=== PATIENT | male | born 1945 | race Caucasian/White ===

== ENCOUNTER 2016-05-02 08:53 | Outpatient (CLI) | payer MEDICARE | END 2016-05-02 08:54 | disposition home or self-care (01) | DX: I12.9 Hypertensive chronic kidney disease with stage 1 through stage 4 chronic kidney disease, or unspecified chronic kidney disease (principal); N18.3 Chronic kidney disease, stage 3 (moderate); Z12.5 Encounter for screening for malignant neoplasm of prostate | CPT/HCPCS: 36415; 80053; 85025; G0103 ==

== ENCOUNTER 2016-11-11 07:53 | Outpatient (CLI) | payer MEDICARE ==
[2016-11-11 13:12] LABS: BASOPHILS % (AUTO) 0.7 %; EOSINOPHILS # (AUTO) 0.2 10^3/uL (0.0-0.7); EOSINOPHILS % (AUTO) 3.3 %; HCT - HEMATOCRIT 39.1 % (42.0-52.0); HGB - HEMOGLOBIN 13.4 g/dL (14.0-18.0); LYMPHOCYTES % (AUTO) 34.5 %; MEAN CORPUSCULAR HEMOGLOBIN 29.7 pg (27.0-31.0); MEAN CORPUSCULAR HGB CONC 34.2 g/dL (32.0-36.0); MEAN CORPUSCULAR VOLUME 86.7 fL (80.0-94.0); MEAN PLATELET VOLUME 8.5 fL (7.4-11.4); MONOCYTES # (AUTO) 0.5 10^3/uL (0.0-1.0); MONOCYTES % (AUTO) 9.3 %; NEUTROPHILS # (AUTO) 3.1 10^3/uL (1.5-6.6); NEUTROPHILS % (AUTO) 52.2 %; RED BLOOD COUNT 4.51 10^6/uL (4.70-6.10); RED CELL DISTRIBUTION WIDTH 13.6 % (12.0-15.0); UNCORRECTED WHITE BLOOD COUNT 5.9 x10^3/uL; WHITE BLOOD COUNT 5.9 x10^3/uL (4.8-10.8)
[2016-11-11 13:24] LABS: ALBUMIN/GLOBULIN RATIO 1.4 (1.0-2.2); BILIRUBIN,TOTAL 1.1 mg/dL (0.2-1.0); CALCIUM 9.5 mg/dL (8.5-10.3); CREATININE 1.3 mg/dL (0.6-1.2); POTASSIUM 4.2 mmol/L (3.5-5.0); TOTAL PROTEIN 7.6 g/dL (6.7-8.2)
== END 2016-11-11 07:54 | disposition home or self-care (01) ==
LOC: LAB.WCP 07:53
PROVIDERS: ATTEND Family Medicine
DX: I10 Essential (primary) hypertension (principal)
CPT/HCPCS: 36415; 80053; 85025; G0103; 84153

== ENCOUNTER 2017-06-15 08:00 | Outpatient (CLI) | payer MEDICARE ==
[2017-06-15 19:18] LABS: CALCIUM 9.3 mg/dL (8.5-10.3); CREATININE 1.3 mg/dL (0.6-1.2)
== END 2017-06-15 08:01 | disposition home or self-care (01) ==
LOC: LAB.WCP 08:00
PROVIDERS: ATTEND Family Medicine
DX: R60.0 Localized edema (principal)
CPT/HCPCS: 36415; 80048

== ENCOUNTER 2017-06-16 09:37 | Outpatient (CLI) | payer MEDICARE ==
--- NOTE | 2017-06-16 12:01 | Ultrasound Report ---
BILATERAL LOWER EXTREMITY VENOUS DUPLEX: 06/16/2017 CLINICAL INDICATION: Right leg edema. TECHNIQUE: Real-time sonographic vascular imaging was performed by the penciller through the lower extremities utilizing both color flow and Doppler spectral analysis. Multiple territory account representative static images were saved for review. FINDINGS: A bilateral lower extremity venous sonogram is performed revealing the common femoral, superficial femoral, profunda femoris, and popliteal veins to be adequately visualized without intraluminal defects. There is normal venous compression, augmentation, phasicity, and spontaneity of venous flow. In the calf, the visualized more cephalad portions of posterior tibial and peroneal veins are grossly compressible, without filling defects. IMPRESSION: NO EVIDENCE OF DEEP VENOUS THROMBOSIS. TD: 06/16/2017 12:00
== END 2017-06-16 09:38 | disposition home or self-care (01) ==
LOC: DI 09:37
PROVIDERS: ATTEND Family Medicine
DX: R60.0 Localized edema (principal)
CPT/HCPCS: 93970

== ENCOUNTER 2017-07-12 09:49 | Outpatient (CLI) | payer MEDICARE | END 2017-07-12 09:50 | disposition home or self-care (01) | LOC: SC 09:49 | PROVIDERS: ATTEND Nurse Practitioner Family | DX: G47.33 Obstructive sleep apnea (adult) (pediatric) (principal); G47.61 Periodic limb movement disorder | CPT/HCPCS: 99214; G0463; 99212 ==

== ENCOUNTER 2017-10-02 08:00 | Outpatient (CLI) | payer MEDICARE ==
[2017-10-02 19:41] LABS: ALBUMIN 4.2 g/dL (3.2-5.5); ALBUMIN/GLOBULIN RATIO 1.2 (1.0-2.2); ALKALINE PHOSPHATASE 56 IU/L (42-121); ALT ALANINE AMINOTRANSFERASE 25 IU/L (10-60); AST ASPARTATE AMINOTRANSFERASE 24 IU/L (10-42); BILIRUBIN,TOTAL 1.4 mg/dL (0.2-1.0); BUN - BLOOD UREA NITROGEN 28 mg/dL (6-20); CALCIUM 9.4 mg/dL (8.5-10.3); CARBON DIOXIDE - CO2 24 mmol/L (21-32); CHLORIDE 104 mmol/L (101-111); CHOL/HDL RATIO 2.2 (<5.0); CHOLESTEROL 127 mg/dL; CREATININE 1.2 mg/dL (0.6-1.2); GFR - MDRD 60 (>89); GLUCOSE 80 mg/dL (70-100); HDL CHOLESTEROL 57 mg/dL; LDL CHOLESTEROL,CALCULATED 61 mg/dL; LDL/HDL RATIO 1.1 (<3.6); SODIUM 137 mmol/L (135-145); TOTAL PROTEIN 7.6 g/dL (6.7-8.2); VLDL CHOLESTEROL 9 mg/dL
== END 2017-10-02 08:01 | disposition home or self-care (01) ==
LOC: LAB.WCP 08:00
PROVIDERS: ATTEND Family Medicine
DX: N40.1 Benign prostatic hyperplasia with lower urinary tract symptoms (principal); I10 Essential (primary) hypertension; G47.33 Obstructive sleep apnea (adult) (pediatric); Z12.5 Encounter for screening for malignant neoplasm of prostate
CPT/HCPCS: 36415; 80053; 80061; G0103; 83721; 84153

== ENCOUNTER 2017-10-05 22:01 | Outpatient (CLI) | payer MEDICARE | END 2017-10-05 22:02 | disposition critical access hospital (66) | LOC: EMS 22:01 | PROVIDERS: ATTEND Surgery | DX: R06.02 Shortness of breath (principal) | CPT/HCPCS: A0425; A0429 ==

== ENCOUNTER 2017-10-05 22:36 | Emergency (ER) | payer MEDICARE ==
--- NOTE | 2017-10-05 22:56 | ED Physician Documentation ---
PD HPI DYSPNEA - Stated complaint Stated Complaint: SOA - Chief complaint Chief Complaint: Resp - History obtained from History obtained from: Patient - History of Present Illness Timing - onset: How many days ago (2-3) Timing - duration: Days Timing - details: Gradual onset Pain level now: 0 Improved by: Rest Worsened by: Exertion, Coughing Associated symptoms: Cough. No: Fever, Chest pain / discomfort, Bilateral edema , Unilateral edema Similar symptoms before: Has not had sx before Recently seen: Not recently seen - Additional information Additional information: patient complains of 2 to 3 days of upper respiratory infection symptoms. He feels chest congestion associated with a productive cough, sore throat. Tonight , he was gargling with salt water for his sore throat, when he had sudden onset of sensation of choking and being unable to breathe. Family called 911, but the symptom of choking and being unable to breathe rapidly resolved within less than one minute. Review of Systems Constitutional: reports: Myalgias. denies: Fever Ears: denies: Ear pain Nose: reports: Congestion Throat: reports: Sore throat Cardiac: denies: Chest pain / pressure, Palpitations, Pedal edema Respiratory: reports: Dyspnea, Cough GI: reports: Reviewed and negative PD PAST MEDICAL HISTORY - Past Medical History Past Medical History: No - Past Surgical History Past Surgical History: No - Present Medications Home Medications: Ambulatory Orders Medication Instructions Recorded Confirmed Azithromycin [Zithromax] 250 mg PO DAILY #4 tablet 10/06/17 - Allergies Allergies/Adverse Reactions: Allergies Allergy/AdvReac Type Severity Reaction Status Date / Time No Known Drug Allergies Allergy Verified 10/05/17 23:30 - Living Situation Living Situation: reports: With spouse/s.o. Living Arrangement: reports: At home - Social History Does the pt smoke?: No PD ED PE NORMAL - Vitals Vital signs reviewed: Yes - General General: Alert and oriented X 3, No acute distress, Well developed/nourished - HEENT HEENT: Moist mucous membranes, Pharynx benign - Neck Neck: Supple, no meningeal sign - Cardiac Cardiac: RRR, No murmur - Respiratory Respiratory: No respiratory distress, Other (scattered rhonchi without focal abnormality) Results - Vitals Vitals: Oxygen O2 Source Room air - EKG (time done) No standard instances Rate: Rate (enter#) (71) Rhythm: NSR Cullen: Normal Intervals: Normal MT QRS: Normal Ischemia: Non specific changes (V1-V3) - Labs Labs: Laboratory Tests 10/05/17 10/05/17 23:55 23:55 WBC 5.5 RBC 4.08 L Hgb 12.3 L Hct 36.7 L MCV 89.9 MCH 30.1 MCHC 33.5 RDW 13.8 Plt Count 205 MPV 7.8 Neut # (Auto) 3.7 Lymph # (Auto) 1.0 L Grady # (Auto) 0.5 Eos # (Auto) 0.2 Baso # (Auto) 0.1 Absolute Nucleated RBC 0.00 Nucleated RBC % 0.0 Troponin I < 0.04 PD MEDICAL DECISION MAKING - ED course Complexity details: reviewed results, re-evaluated patient, considered differential, d/w patient ED course: based on patients HPI, abnormal breath sounds, and concerning description of sudden onset of difficulty breathing tonight, my recommendation is to start Zithromax for possible early pneumonia, and this would obviate the need for a chest x-ray.patient is agreeable with this plan. Patient was brought in by ambulance, and the 12 lead EKG performed the field has mildly suspicious ST segments in the early V leads and thus EKG performed in emergency department. This EKG also has ST segments that could be interpreted as elevated, although there is no clear J-point to measure. When also considering that he has no chest pain, pressure, tightness, squeezing, and that his symptoms are limited to symptoms that are quite suggestive of a respiratory infection, my recommendation was to then obtain blood tests including troponin to further investigate these possible EKG abnormalities. These tests results were reassuring, and on reexam, patient says he still has had no chest discomfort, no palpitations, and wishes to be discharged home. - Sepsis Event Vital Signs: Oxygen O2 Source Room air Departure - Departure Disposition: Home, Self Care Clinical Impression: Dyspnea Condition: Good Instructions: ED Upper Resp Infec Abx Tx, ED Dyspnea Shortness of Breath Follow-Up: Eduardo Deleon MD [Primary Care Provider] - Prescriptions: Azithromycin [Zithromax] 250 mg PO DAILY #4 tablet Discharge Date/Time: 10/06/17 00:50
[2017-10-05] MEDS ORDERED: AZITHROMYCIN 250 MG TABLET PO STA (23:19)
[2017-10-06] MEDS ORDERED: AZITHROMYCIN 250 MG TABLET PO ONE (00:05)
[2017-10-06 00:17] LABS: BASOPHILS # (AUTO) 0.1 10^3/uL (0.0-0.1); BASOPHILS % (AUTO) 1.4 %; EOSINOPHILS # (AUTO) 0.2 10^3/uL (0.0-0.7); EOSINOPHILS % (AUTO) 3.6 %; HGB - HEMOGLOBIN 12.3 g/dL (14.0-18.0); LYMPHOCYTES % (AUTO) 18.2 %; MEAN CORPUSCULAR HEMOGLOBIN 30.1 pg (27.0-31.0); MEAN CORPUSCULAR HGB CONC 33.5 g/dL (32.0-36.0); MEAN CORPUSCULAR VOLUME 89.9 fL (80.0-94.0); MEAN PLATELET VOLUME 7.8 fL (7.4-11.4); MONOCYTES # (AUTO) 0.5 10^3/uL (0.0-1.0); MONOCYTES % (AUTO) 9.3 %; NEUTROPHILS # (AUTO) 3.7 10^3/uL (1.5-6.6); NEUTROPHILS % (AUTO) 67.5 %; PLT - PLATELET COUNT 205 10^3/uL (130-450); RED BLOOD COUNT 4.08 10^6/uL (4.70-6.10); RED CELL DISTRIBUTION WIDTH 13.8 % (12.0-15.0); WHITE BLOOD COUNT 5.5 x10^3/uL (4.8-10.8)
[2017-10-06 00:50] VITALS: BP 140/80
== END 2017-10-06 00:50 | disposition home or self-care (01) ==
LOC: EDUNIT# → ED 22:36
DX: R06.02 Shortness of breath (principal); R05 Cough; J02.9 Acute pharyngitis, unspecified
CPT/HCPCS: 36415; 84484; 85025; 93005; 99283; A9270

== ENCOUNTER 2017-11-09 09:06 | Outpatient (CLI) | payer MEDICARE ==
--- NOTE | 2017-11-09 16:14 | MRI Report ---
Procedure Date: 11/09/2017 Accession Number: [id number] / [id number] Procedure: MRI - Foot RT W/O CPT Code: FULL RESULT: EXAM: RIGHT MIDFOOT MRI WITHOUT CONTRAST EXAM DATE: 11/09/2017 10:30 AM. CLINICAL HISTORY: Bilateral foot pain. Peroneal tendinitis. COMPARISON: None. TECHNIQUE: Multiplanar, multisequence T1-weighted and fluid-sensitive sequences of the midfoot without contrast. Other: None. FINDINGS: Bones: No fractures. There is periarticular marrow edema and cyst formation in the first tarsometatarsal joint. The first tarsometatarsal joint is moderately narrowed with dorsal moderate osteophyte formation. Articular Cartilage: The patient has full-thickness fissuring in the articular cartilage in the first tarsometatarsal joint near the areas of periarticular marrow edema. Ligaments: The visualized intertarsal, intermetatarsal, and tarsometatarsal ligaments are intact. This includes the Lisfranc ligament. The visualized collateral ligaments are intact. Tendons: The peroneus longus tendon has an oval-shaped area within its midfibers as it starts to travel around the midfoot that is 10 mm in length. This could represent a large intrasubstance tear or an os peroneum within the tendon. There is certainly some fluid around the tendon in this region and if this is an ossicle, it is edematous. (series 901, image 7). The insertion of the peroneus brevis tendon is unremarkable. The other visualized flexor and extensor tendons are unremarkable. Musculature: The intrinsic musculature of the foot demonstrates moderate atrophy with mild edema. Other: No effusions. The visualized portion of the tarsal tunnel is unremarkable. No intermetatarsal bursitis. Subcutaneous edema is in the lateral portion of the foot. IMPRESSION: 1. 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 2. Oval-shaped area of increased T2 signal within the peroneus longus tendon near the marker indicating the site of the pain with some fluid around the tendon. This could represent an intrasubstance tear or could represent an os peroneum syndrome. Radiographic correlation may determine whether there is an ossicle at that location. [facility] MUSCULOSKELETAL RADIOLOGY SECTION
--- NOTE | 2017-11-09 18:12 | MRI Report ---
Procedure Date: 11/09/2017 Accession Number: [id number] / [id number] Procedure: MRI - Foot LT W/O CPT Code: FULL RESULT: EXAM: LEFT MIDFOOT MRI WITHOUT CONTRAST EXAM DATE: 11/09/2017 11:05 AM. CLINICAL HISTORY: Peroneal tendinitis, bilateral foot pain, unspecified. COMPARISON: None. TECHNIQUE: Multiplanar, multisequence T1-weighted and fluid-sensitive sequences of the midfoot without contrast. Other: None. FINDINGS: Evaluation limited in the absence of routine short axis sequences. Bones: No fracture or bone lesion. Mild to moderate bone marrow edema partially visualized at the peroneal tubercle at the lateral margin of the calcaneus. Articular Cartilage: Minimal cartilage loss throughout the midfoot. No focal bone marrow edema or cystic changes. Mild degenerative change partially visualized at the first metatarsal phalangeal joint. Ligaments: Evaluation limited in the absence of short axis sequences. The visualized intertarsal, intermetatarsal, and tarsometatarsal ligaments are grossly intact. This includes the Lisfranc ligament. Tendons: Evaluation limited in the absence of short axis sequences. No gross tendon disruption visualized. Mild thickening of the peroneus longus and brevis tendons at the level of the calcaneus. Lobulated focus of fluid measuring 3 cm in length partially visualized at the master knot of Harvey at the crossover site of the flexor hallucis longus and flexor digitorum tendons. Musculature: Moderate to severe fatty atrophy and subtle edema throughout the musculature, likely neurogenic. Other: No large joint effusion. Minimal subcutaneous edema over the medial aspect of the midfoot. Linear 3.2 cm multilobulated ganglion partially visualized over the dorsal and medial aspect talonavicular joint. 1.2 cm ganglion at the plantar aspect calcaneal cuboid joint. IMPRESSION: 1. Evaluation mildly limited in the absence of short axis sequences. 2. Mild peroneus longus and brevis tendinopathy partially visualized at the level of the calcaneus. 3. Mild to moderate bone marrow edema in the calcaneus at the level of the peroneal tubercle, likely reactive. 4. Mild degenerative change first metatarsal phalangeal joint. [facility] MUSCULOSKELETAL RADIOLOGY SECTION
== END 2017-11-09 09:07 | disposition home or self-care (01) ==
LOC: DI 09:06
PROVIDERS: ATTEND Orthopaedic Surgery
DX: M19.071 Primary osteoarthritis, right ankle and foot (principal); M77.52 Other enthesopathy of left foot and ankle; M19.072 Primary osteoarthritis, left ankle and foot

== ENCOUNTER 2018-04-25 08:00 | Outpatient (CLI) | payer MEDICARE ==
[2018-04-25 19:14] LABS: ALBUMIN 4.6 g/dL (3.2-5.5); ALBUMIN/GLOBULIN RATIO 1.6 (1.0-2.2); BILIRUBIN,TOTAL 1.3 mg/dL (0.2-1.0); CALCIUM 9.3 mg/dL (8.5-10.3); CREATININE 1.2 mg/dL (0.6-1.2); TOTAL PROTEIN 7.5 g/dL (6.7-8.2)
== END 2018-04-25 23:59 | disposition home or self-care (01) ==
LOC: LAB.WCP 08:00
PROVIDERS: ATTEND Family Medicine
DX: I12.9 Hypertensive chronic kidney disease with stage 1 through stage 4 chronic kidney disease, or unspecified chronic kidney disease (principal); N18.3 Chronic kidney disease, stage 3 (moderate)
CPT/HCPCS: 36415; 80053

== ENCOUNTER 2018-05-23 09:17 | Outpatient (CLI) | payer MEDICARE ==
[2018-05-23 12:48] LABS: CALCIUM 9.5 mg/dL (8.5-10.3); CREATININE 1.2 mg/dL (0.6-1.2)
== END 2018-05-23 09:18 | disposition home or self-care (01) ==
LOC: LAB.WCP 09:17
PROVIDERS: ATTEND Family Medicine
DX: I12.9 Hypertensive chronic kidney disease with stage 1 through stage 4 chronic kidney disease, or unspecified chronic kidney disease (principal); N18.3 Chronic kidney disease, stage 3 (moderate)
CPT/HCPCS: 36415; 80048

== ENCOUNTER 2018-11-19 | Outpatient (CLI) | payer MEDICARE | END 2018-11-19 23:59 | disposition home or self-care (01) ==

== ENCOUNTER 2018-11-27 08:00 | Outpatient (CLI) | payer MEDICARE ==
[2018-11-27 19:25] LABS: BILIRUBIN,URINE NEGATIVE (NEGATIVE); GLUCOSE, URINE (UA) NEGATIVE (NEGATIVE); KETONES,URINE (UA) NEGATIVE (NEGATIVE); LEUKOCYTE ESTERASE, URINE NEGATIVE (NEGATIVE); NITRITE,URINE NEGATIVE (NEGATIVE); OCCULT BLOOD,URINE NEGATIVE (NEGATIVE); PROTEIN,URINE NEGATIVE (NEGATIVE); UROBILINOGEN,URINE 0.2 (NORMAL) E.U./dL (NORMAL)
[2018-11-27 19:29] LABS: CLARITY,URINE CLEAR (CLEAR)
[2018-11-27 19:34] LABS: BACTERIA,URINE None Seen /HPF (None Seen); RBC,URINE None Seen /HPF (0-5); SQUAMOUS EPITHELIAL CELL,UR NONE SEEN (<= Few)
== END 2018-11-27 23:59 | disposition home or self-care (01) ==
LOC: LAB.WCP 08:00
PROVIDERS: ATTEND Family Medicine
DX: R10.9 Unspecified abdominal pain (principal)
CPT/HCPCS: 81001

== ENCOUNTER 2018-12-03 11:00 | Outpatient (CLI) | payer MEDICARE ==
[2018-12-03] MEDS ORDERED: IOVERSOL 320 100 ML VIAL IVP ONE ×2 (11:12→16:51)
[2018-12-03] MEDS ORDERED: IOVERSOL 320 50 ML VIAL ONE (11:13)
[2018-12-03] MEDS ORDERED: IOVERSOL 320 50 ML VIAL PO ONE (16:51)
--- NOTE | 2018-12-04 11:46 | CT Report ---
Reason: ABDOMINAL PAIN, LEFT LOWER QUADRANT Procedure Date: 12/03/2018 Accession Number: [id number] / [id number] Procedure: CT - Abdomen/Pelvis W CPT Code: FULL RESULT: EXAM: CT ABDOMEN AND PELVIS EXAM DATE: 12/03/2018 12:12 PM. CLINICAL HISTORY: Abdominal pain, left lower quadrant. COMPARISONS: None. TECHNIQUE: Routine helical CT imaging was performed through the abdomen and pelvis. IV contrast: OPTI 320 100 mL. Enteric contrast: Yes. Reconstructions: Coronal and sagittal. In accordance with CT protocol optimization, one or more of the following dose reduction techniques were utilized for this exam: automated exposure control, adjustment of mA and/or KV based on patient size, or use of iterative reconstructive technique. FINDINGS: Lung Bases: Unremarkable. Liver: Normal. No masses. Gallbladder/Bile Ducts: Unremarkable. Spleen: Normal. Pancreas: Normal. Adrenal Glands: Normal. Kidneys: Right kidney is normal. On the left kidney, there is a 3 cm circumscribed margin exophytic oval mass from the lateral lower pole with mean Hounsfield units of 66 and an appearance of imperceptible outer wall favoring hyperdense cyst. An identical morphology finding measuring 80 HU is noted off the posterior lower pole. There is no stone or hydronephrosis of either side. Peritoneal Cavity/Bowel: Air and fluid-filled diverticulum of the third portion of duodenum. Moderate diffuse colonic diverticulosis greatest of the sigmoid colon without evidence of acute diverticulitis. The appendix is not specifically visualized but there is no inflammatory change in the right lower quadrant. No free fluid, free air or adenopathy. No masses or acute inflammatory process. Pelvic Organs: Normal. The bladder and visualized pelvic organs are within normal limits. Vasculature: No aneurysms or other significant abnormality. Bones: Multilevel degenerative disk changes of the lumbar spine. Multilevel bridging osteophyte noted of the lower thoracic spine. Mild symmetric degenerative arthritis of both hip joints. Other: There is elongated low-density fluid expansion of the lower left psoas muscle extending nearly to its insertion point involving roughly 9 cm length of the distal psoas muscle and measuring roughly 3 x 2.5 cm in dimension. Hounsfield unit measurements are less than 20. There is no associated enhancement. IMPRESSION: 1. Low density central fluid expansion involving distal left psoas muscle extending nearly to the insertion point as possible etiology for left-sided symptoms. Differential considerations could include seroma fluid related to injury less likely infectious fluid given the lack of other findings. Correlation with clinical history is recommended. 2. Indeterminate exophytic circumscribed mass-like findings of the left kidney, most likely representing hyperdense cysts. Further evaluation with a renal ultrasound and/or dedicated pre-and postcontrast abdominal CT is recommended. 3. Colonic diverticulosis without CT evidence of diverticulitis. [facility]
== END 2018-12-03 11:01 | disposition home or self-care (01) ==
LOC: DI 11:00
PROVIDERS: ATTEND Family Medicine
DX: R10.32 Left lower quadrant pain (principal); N28.89 Other specified disorders of kidney and ureter; K57.30 Diverticulosis of large intestine without perforation or abscess without bleeding
CPT/HCPCS: 74177; Q9967

== ENCOUNTER 2018-12-19 16:18 | Outpatient (CLI) | payer MEDICARE ==
--- NOTE | 2018-12-24 03:40 | Ultrasound Report ---
Reason: RENAL MASS Procedure Date: 12/19/2018 Accession Number: [id number] / [id number] Procedure: US - Retroperitoneal CPT Code: FULL RESULT: EXAM: RENAL ULTRASOUND EXAM DATE: 12/19/2018 06:22 PM. CLINICAL HISTORY: RENAL MASS. COMPARISON: ABDOMEN/PELVIS W/ 12/03/2018 12:04 PM. TECHNIQUE: Real-time scanning was performed with static images obtained. FINDINGS: Right Kidney: 13.3 x 6.3 x 5.1 cm. Normal echotexture with no stones, contour-deforming masses, or hydronephrosis. Left Kidney: 12.1 x 5.7 x 4.8 cm. 2 cortical cysts are identified, the larger measuring 3 cm, and the smaller measuring 1.1 cm, correlating with the [address] No solid mass is identified. Bladder: Bilateral jets seen. The prevoid bladder volume was 585 cc. The postvoid bladder volume was 366 cc. Other: None. IMPRESSION: 2 cortical cysts, accounting for the CT abnormalities. No solid renal mass is appreciated. Large postvoid residual. [facility]
== END 2018-12-19 16:19 | disposition home or self-care (01) ==
LOC: DI 16:18
PROVIDERS: ATTEND Family Medicine
DX: Q61.02 Congenital multiple renal cysts (principal)
CPT/HCPCS: 76770

== ENCOUNTER 2019-02-05 10:51 | Outpatient (CLI) | payer MEDICARE ==
[2019-02-05] MEDS ORDERED: IOVERSOL 320 100 ML VIAL IVP ONE ×2 (11:08→13:36)
[2019-02-05] MEDS ORDERED: IOVERSOL 320 50 ML VIAL ONE (11:08)
[2019-02-05 11:27] LABS: CREATININE 1.4 mg/dL (0.6-1.2)
[2019-02-05] MEDS ORDERED: IOVERSOL 320 50 ML VIAL PO ONE (13:36)
--- NOTE | 2019-02-06 10:31 | CT Report ---
Reason: L PSOAS FLUID COLLECTION Procedure Date: 02/05/2019 Accession Number: [id number] / [id number] Procedure: CT - Abdomen/Pelvis W CPT Code: FULL RESULT: EXAM: CT ABDOMEN AND PELVIS EXAM DATE: 02/05/2019 12:12 PM. CLINICAL HISTORY: Follow-up left iliopsoas fluid collection COMPARISONS: ABDOMEN/PELVIS W/ 12/03/2018 12:04 PM LUMBAR SPINE W/WO 11/18/2015 8:35 AM RETROPERITONEAL 12/19/2018 5:26 PM. TECHNIQUE: Routine helical CT imaging was performed through the abdomen and pelvis. IV contrast: OPTI 320 90ML. Enteric contrast: Yes. Reconstructions: Coronal and sagittal. In accordance with CT protocol optimization, one or more of the following dose reduction techniques were utilized for this exam: automated exposure control, adjustment of mA and/or KV based on patient size, or use of iterative reconstructive technique. FINDINGS: Lung Bases: Unremarkable. Liver: Normal. No masses. Gallbladder/Bile Ducts: Unremarkable. Spleen: Normal. Pancreas: Normal. Adrenal Glands: Normal. Kidneys: 3 cm circumscribed exophytic lateral lower pole and 9 mm exophytic posterior inferior left lower pole high attenuation lesions are stable. 5 mm posterior right kidney exophytic lesion too small to accurately characterize also stable. No stones, new masses or hydronephrosis. Peritoneal Cavity/Bowel: No free fluid, free air or adenopathy. Air and fluid filled duodenal diverticulum as before. No masses or acute inflammatory process. Colonic diverticulosis without diverticulitis. Pelvic Organs: Unremarkable bladder. Prominent prostate. Vasculature: No aneurysms or other significant abnormality. Bones: Multilevel moderate degenerative change in spine and mild degenerative change of the hips again noted. Minor lumbar levoscoliosis. Other: Elongated low density fluid collection within the left lower iliopsoas muscle measuring 9 cm longitudinally by 3 x 2.5 cm axial unchanged. Differential again includes synovial/ganglion cyst, posttraumatic seroma/hematoma, with infection seeming less likely. IMPRESSION: Stable abdomen and pelvis CT compared with 12/03/2018 with particular reference to a distal left iliopsoas fluid collection, exophytic lesions from both kidneys, and prostate prominence.No significant new findings. [facility]
== END 2019-02-05 10:52 | disposition home or self-care (01) ==
LOC: DI 10:51
PROVIDERS: ATTEND Surgery
DX: K68.12 Psoas muscle abscess (principal)
CPT/HCPCS: 36415; 74177; 82565; Q9967

== ENCOUNTER 2019-03-20 14:38 | Outpatient (CLI) | payer MEDICARE ==
[2019-03-20 15:35] VITALS: BP 140/60
--- NOTE | 2019-03-20 15:35 | SLEEP CARE CONSULTATION ---
Information from patient questionnaire entered by Carina Werner. I have reviewed and concur with the information entered by Carina Werner. This document represents the service I personally performed and the decisions made by me, Krystle Maria, RN, MSN, ORDER ANALYST. History of Present Illness Previous diagnosis: Severe, Obstructive Sleep Apnea-Hypopnea Syndrome AHI: 30.8 Reason for follow up: annual (last seen 2018) Equipment type: CPAP Equipment obtained from: [facility] (was having difficulty getting supplies and unable to use CPAP for a short time while waiting for supplies) Mask style: Nasal Mask brand: Respironics Backup mask available: No (Keep current mask when replaced as spare ) Last cushion change: months ago CPAP Compliance Data - Data Reviewed with Patient Average duration of nightly device use: 7.7 Compliance rate %: 93.3 (30 days) Current pressure setting (cmH2O): 4 Humidity settin Heated hose settin Average residual AHI: 1.3 Average large leak: 1 min 28 sec Subjective Patient concerns: reports: dry mouth, nose, throat (most nights until that past week it is less. The reservoir shows minimal use of water despite highest setting. He does not have to replace water only weekly ). denies: aerophagia, mask discomfort, air blowing in eyes, mask leak noise, condensation in mask/hose, nasal congestion, epistaxis Observed to snore while using device: No Current pressure setting perceived as: comfortable On therapy, patient: reports: sleeping better, awakening more refreshed, being more awake and alert during the day, more rested overall. denies: drowsiness while driving Initial [place] Sleepiness Scale score: 17 Current [place] Sleepiness Scale score: 9 Allergies and Home Medications Known drug allergies: No Home medication list reviewed: Yes Allergy and home medication list: Losartan Potassium 50mg tab one daily Flomax 0.4mg cap one daily Review of Systems Review of systems same as previous: Yes Physical Exam Blood Pressure: 140/60 Cuff size: long Heart Rate: 65 O2 Saturation: 98 Height: 6 ft 3 in Weight: 214 lb 9.6 oz Body Mass Index: 26.8 BMI Classification: Overweight Impression and Plan 1. Obstructive Sleep Apnea-Hypopnea Syndrome, severe, with good treatment compliance and good apnea control. On CPAP therapy, the patient has better sleep quality and is more rested overall. Since his humidifier is only using very minimal water with replacement not needed for a week with setting at maximum, I will have his humidifier checked for malfunction. He is also advised to dump water from reservoir daily with rationale discussed. Oral dryness can also be reduced with use of oral products such Smart mouth mouth rinse, Biotene products as well as xylimelts. He can also check dentist if he has other suggestions. Since he is having difficulty getting supplies, he was informed that he can transfer to another DME if continued problems getting supplies. He would like to try current DME to see if any better. If he decides to transfer later, he needs to contact me so a DWO prescription can be made. I will have him discuss his transfer options with my marketing support coordinator. I also discussed that if he has difficulty using CPAP for any reason in future to contact me so can discuss options to assist him. Patient's apnea severity and rationale for treatment to reduce apnea, improve sleep quality and reduce cardiovascular and cerebrovascular events was reviewed. I also reviewed the benefit of consistent device use of CPAP for his hypertension, gastric reflux. * Continue CPAP pressure at 4 cmH2O * update supplies * check device humidifier for malfunction * Notify me if snoring with mask or feeling that the pressure is too much or too little * Attempt to lose some weight * Return for follow up in 1 year , or sooner if concerns arise I spent 100% of this 30 minute visit face to face with the patient with greater than 50% of this was spent time counseling the patient and coordination of care.
== END 2019-03-20 14:39 | disposition home or self-care (01) ==
LOC: SC 14:38
PROVIDERS: ATTEND Nurse Practitioner Family
DX: G47.33 Obstructive sleep apnea (adult) (pediatric) (principal)
CPT/HCPCS: 99214; G0463; 99212

== ENCOUNTER 2019-05-01 08:00 | Outpatient (CLI) | payer MEDICARE ==
[2019-05-01 19:12] LABS: CALCIUM 10.2 mg/dL (8.5-10.3); CREATININE 1.7 mg/dL (0.6-1.2); MAGNESIUM 2.1 mg/dL (1.7-2.8)
== END 2019-05-01 23:59 | disposition home or self-care (01) ==
LOC: LAB.WCP 08:00
PROVIDERS: ATTEND Family Medicine
DX: I12.9 Hypertensive chronic kidney disease with stage 1 through stage 4 chronic kidney disease, or unspecified chronic kidney disease (principal); N18.3 Chronic kidney disease, stage 3 (moderate)
CPT/HCPCS: 36415; 80048; 83735

== ENCOUNTER 2019-05-23 10:05 | Outpatient (CLI) | payer MEDICARE ==
--- NOTE | 2019-05-23 15:05 | XRAY Report ---
Reason: CHEST WALL PAIN Procedure Date: 05/23/2019 Accession Number: [id number] / [id number] Procedure: WCP - Chest 2 View X-Ray CPT Code: 82884 Final Report FULL RESULT: EXAM: CHEST RADIOGRAPHY EXAM DATE: 05/23/2019 10:05 AM. CLINICAL HISTORY: CHEST WALL PAIN. COMPARISON: None. TECHNIQUE: 2 views. FINDINGS: Lungs/Pleura: No focal opacities evident. No pleural effusion. No pneumothorax. Normal volumes. Mediastinum: Atherosclerotic aortic calcification. Other: Diffuse idiopathic skeletal hyperostosis with extensive flowing ossification of anterior longitudinal ligament. Bones appear osteopenic. No displaced rib fracture. IMPRESSION: 1. No consolidation. [facility]
== END 2019-05-23 10:06 | disposition home or self-care (01) ==
LOC: DI.WCP 10:05
PROVIDERS: ATTEND Family Medicine
DX: R07.89 Other chest pain (principal)
CPT/HCPCS: 71046

== ENCOUNTER 2019-05-23 10:17 | Outpatient (CLI) | payer MEDICARE ==
[2019-05-23 12:35] LABS: BASOPHILS # (AUTO) 0.1 10^3/uL (0.0-0.1); BASOPHILS % (AUTO) 1.2 %; EOSINOPHILS # (AUTO) 0.3 10^3/uL (0.0-0.7); EOSINOPHILS % (AUTO) 4.8 %; HGB - HEMOGLOBIN 11.5 g/dL (14.0-18.0); LYMPHOCYTES # (AUTO) 1.5 10^3/uL (1.5-3.5); LYMPHOCYTES % (AUTO) 21.8 %; MEAN CORPUSCULAR HEMOGLOBIN 29.4 pg (27.0-31.0); MEAN CORPUSCULAR HGB CONC 32.3 g/dL (32.0-36.0); MEAN PLATELET VOLUME 9.7 fL (7.4-11.4); MONOCYTES # (AUTO) 0.7 10^3/uL (0.0-1.0); MONOCYTES % (AUTO) 9.4 %; NEUTROPHILS # (AUTO) 4.2 10^3/uL (1.5-6.6); NEUTROPHILS % (AUTO) 61.3 %; PLT - PLATELET COUNT 462 10^3/uL (130-450); RED BLOOD COUNT 3.91 10^6/uL (4.70-6.10); RED CELL DISTRIBUTION WIDTH 13.3 % (12.0-15.0); WHITE BLOOD COUNT 6.9 x10^3/uL (4.8-10.8)
[2019-05-23 13:03] LABS: ALBUMIN 4.4 g/dL (3.2-5.5); ALBUMIN/GLOBULIN RATIO 1.2 (1.0-2.2); BILIRUBIN,TOTAL 0.9 mg/dL (0.2-1.0); CALCIUM 10.3 mg/dL (8.5-10.3); CREATININE 1.6 mg/dL (0.6-1.2); TOTAL PROTEIN 8.2 g/dL (6.7-8.2)
== END 2019-05-23 23:59 | disposition home or self-care (01) ==
LOC: LAB.WCP 10:17
PROVIDERS: ATTEND Family Medicine
DX: R10.9 Unspecified abdominal pain (principal); K68.12 Psoas muscle abscess
CPT/HCPCS: 36415; 80053; 82150; 83690; 85025; 85651

== ENCOUNTER 2019-05-29 09:27 | Outpatient (CLI) | payer MEDICARE ==
[2019-05-29] MEDS ORDERED: IOVERSOL 320 50 ML VIAL ONE (09:33)
[2019-05-29] MEDS ORDERED: IOVERSOL 320 100 ML VIAL IVP ONE ×2 (09:33→17:43)
[2019-05-29] MEDS ORDERED: IOVERSOL 320 50 ML VIAL PO ONE (17:43)
--- NOTE | 2019-05-30 08:49 | CT Report ---
Reason: ABD PAIN, PSOAS MUSCLE ABCESS Procedure Date: 05/29/2019 Accession Number: [id number] / [id number] Procedure: CT - Abdomen/Pelvis W CPT Code: Final Report FULL RESULT: EXAM: CT ABDOMEN AND PELVIS EXAM DATE: 05/29/2019 10:44 AM. CLINICAL HISTORY: Abdominal pain, psoas muscle abscess. COMPARISONS: ABDOMEN/PELVIS W/ 02/05/2019 12:11 PM. TECHNIQUE: Routine helical CT imaging was performed through the abdomen and pelvis. IV contrast: 100 mL Optiray 320. Enteric contrast: Yes. Reconstructions: Coronal and sagittal. In accordance with CT protocol optimization, one or more of the following dose reduction techniques were utilized for this exam: automated exposure control, adjustment of mA and/or KV based on patient size, or use of iterative reconstructive technique. FINDINGS: Lung Bases: Unremarkable. Liver: Normal. No masses. Gallbladder/Bile Ducts: Unremarkable. Spleen: Normal. Pancreas: Normal. Adrenal Glands: Normal. Kidneys: Left kidney: Stable size of a 3 cm circumscribed nodule extending laterally off the lower pole of the left kidney, and stable size of a 9 mm similar-appearing density at the inferior tip of the left kidney. Hounsfield unit measurements performed today suggest that these may be solid. Follow-up renal mass protocol CT or MRI suggested for further evaluation. The kidneys enhance symmetrically. Peritoneal Cavity/Bowel: Normal. No free fluid, free air or adenopathy. No masses or acute inflammatory process. The appendix is well visualized and normal. Pelvic Organs: Normal. The bladder and visualized pelvic organs are within normal limits. Vasculature: No aneurysms or other significant abnormality. Bones: No significant abnormality. Other: Interval decrease in size of a fluid collection of the left iliopsoas muscle, today measuring 1.6 x 1.9 x 3.6 cm, previously 2.5 x 3.0 x 9.0 cm. IMPRESSION: 1. Two lesions of the left kidney are suspected to be solid. Follow-up renal mass protocol CT or MRI is suggested. 2. Interval decrease in size of fluid collection within the left iliopsoas muscle. 3. No acute findings elsewhere. [facility]
== END 2019-05-29 09:28 | disposition home or self-care (01) ==
LOC: DI 09:27
PROVIDERS: ATTEND Family Medicine
DX: K68.12 Psoas muscle abscess (principal); N28.9 Disorder of kidney and ureter, unspecified
CPT/HCPCS: 74177; Q9967

== ENCOUNTER 2019-06-24 09:34 | Outpatient (CLI) | payer MEDICARE ==
[2019-06-24 10:05] LABS: CREATININE 2.2 mg/dL (0.6-1.2)
== END 2019-06-24 09:35 | disposition home or self-care (01) ==
LOC: DI 09:34
PROVIDERS: ATTEND Family Medicine
DX: R10.9 Unspecified abdominal pain (principal)
CPT/HCPCS: 36415; 82565

== ENCOUNTER 2019-06-27 08:00 | Outpatient (CLI) | payer MEDICARE ==
[2019-06-27 12:30] LABS: CALCIUM 10.4 mg/dL (8.5-10.3); CREATININE 2.1 mg/dL (0.6-1.2)
== END 2019-06-27 23:59 | disposition home or self-care (01) ==
LOC: LAB.WCP 08:00
PROVIDERS: ATTEND Physician Assistant Medical
DX: N28.89 Other specified disorders of kidney and ureter (principal)
CPT/HCPCS: 36415; 80048

== ENCOUNTER 2019-07-04 14:20 | Outpatient (CLI) | payer MEDICARE ==
--- NOTE | 2019-07-05 10:16 | Ultrasound Report ---
Reason: RENAL CYST Procedure Date: 07/04/2019 Accession Number: [id number] / [id number] Procedure: US - Retroperitoneal CPT Code: Final Report FULL RESULT: EXAM: RENAL ULTRASOUND EXAM DATE: 07/04/2019 03:29 PM. CLINICAL HISTORY: Renal cyst. Follow-up. COMPARISON: Retroperitoneal ultrasound 12/19/2018, CT abdomen/pelvis w/ 05/29/2019. TECHNIQUE: Real-time scanning was performed with static images obtained. FINDINGS: Right Kidney: 12.1 cm. No hydronephrosis or nephrolithiasis identified. No discrete cystic or mass lesions were identified. Left Kidney: 11.5 cm. 3 cysts were identified of the left kidney on today's study. This included a mid pole cyst measuring 3.2 x 2.5 x 2.3 cm, previously measured at 3.0 x 2.9 x 2.3 cm. An inferior pole cyst today was measured at 1.6 x 1.5 x 1.2 cm, previously 1.1 x 1.1 x 1.0 cm. A renal pelvic cyst was also measured today at 1.4 x 1.3 x 1.4 cm. Bladder: Bilateral jets seen. The prevoid bladder volume was 430 cc. The postvoid bladder volume was 216 cc. Previous postvoid urinary bladder volume was 366 cc. Other: None. IMPRESSION: No suspicious masses identified. No significant change in left renal cyst. Large postvoid residual again noted. RADIA
== END 2019-07-04 14:21 | disposition home or self-care (01) ==
LOC: DI 14:20
PROVIDERS: ATTEND Urology
DX: N28.1 Cyst of kidney, acquired (principal)
CPT/HCPCS: 76770

== ENCOUNTER 2019-07-24 08:00 | Outpatient (CLI) | payer MEDICARE ==
[2019-07-24 16:49] LABS: CALCIUM 10.9 mg/dL (8.5-10.3); CREATININE 2.4 mg/dL (0.6-1.2)
== END 2019-07-24 23:59 | disposition home or self-care (01) ==
LOC: LAB.WCP 08:00
PROVIDERS: ATTEND Internal Medicine
DX: N18.3 Chronic kidney disease, stage 3 (moderate) (principal); E83.52 Hypercalcemia
CPT/HCPCS: 36415; 80048; 81599; 84155; 84165

== ENCOUNTER 2019-07-30 08:00 | Outpatient (CLI) | payer MEDICARE ==
[2019-07-30 16:50] LABS: BASOPHILS # (AUTO) 0.1 10^3/uL (0.0-0.1); BASOPHILS % (AUTO) 1.3 %; EOSINOPHILS # (AUTO) 0.3 10^3/uL (0.0-0.7); EOSINOPHILS % (AUTO) 3.7 %; LYMPHOCYTES # (AUTO) 1.3 10^3/uL (1.5-3.5); LYMPHOCYTES % (AUTO) 14.9 %; MEAN CORPUSCULAR HEMOGLOBIN 28.8 pg (27.0-31.0); MEAN CORPUSCULAR HGB CONC 31.3 g/dL (32.0-36.0); MEAN CORPUSCULAR VOLUME 92.3 fL (80.0-94.0); MEAN PLATELET VOLUME 9.7 fL (7.4-11.4); MONOCYTES # (AUTO) 0.7 10^3/uL (0.0-1.0); MONOCYTES % (AUTO) 7.7 %; NEUTROPHILS # (AUTO) 6.2 10^3/uL (1.5-6.6); NEUTROPHILS % (AUTO) 70.7 %; PLT - PLATELET COUNT 599 10^3/uL (130-450); RED BLOOD COUNT 3.12 10^6/uL (4.70-6.10); RED CELL DISTRIBUTION WIDTH 14.6 % (12.0-15.0); WHITE BLOOD COUNT 8.7 x10^3/uL (4.8-10.8)
[2019-07-30 17:55] LABS: ALBUMIN 4.4 g/dL (3.2-5.5); ALBUMIN/GLOBULIN RATIO 1.1 (1.0-2.2); CALCIUM 11.5 mg/dL (8.5-10.3); CREATININE 2.5 mg/dL (0.6-1.2); TOTAL PROTEIN 8.4 g/dL (6.7-8.2)
[2019-08-07 08:59] LABS: HLA-B27 Negative (Negative)
== END 2019-07-30 23:59 | disposition home or self-care (01) ==
LOC: LAB.WCP 08:00
PROVIDERS: ATTEND Family Medicine
DX: N18.9 Chronic kidney disease, unspecified (principal); M48.10 Ankylosing hyperostosis [Forestier], site unspecified; E83.52 Hypercalcemia
CPT/HCPCS: 36415; 80053; 83970; 84443; 85025; 85651; 86812

== ENCOUNTER 2019-07-31 11:48 | Outpatient (CLI) | payer MEDICARE ==
[2019-07-31 17:02] LABS: ALBUMIN/GLOBULIN RATIO 0.9 (1.0-2.2); BILIRUBIN,TOTAL 0.7 mg/dL (0.2-1.0); CALCIUM 11.8 mg/dL (8.5-10.3); CREATININE 2.5 mg/dL (0.6-1.2); TOTAL PROTEIN 8.5 g/dL (6.7-8.2)
== END 2019-07-31 23:59 | disposition home or self-care (01) ==
LOC: LAB.WCP 11:48
PROVIDERS: ATTEND Internal Medicine
DX: D89.2 Hypergammaglobulinemia, unspecified (principal); N18.3 Chronic kidney disease, stage 3 (moderate); E83.52 Hypercalcemia
CPT/HCPCS: 36415; 80053; 81599; 82784; 83883; 86334

== ENCOUNTER 2019-08-02 08:00 | Outpatient (CLI) | payer MEDICARE | END 2019-08-02 23:59 | disposition home or self-care (01) | LOC: LAB.R 08:00 | PROVIDERS: ATTEND Internal Medicine | DX: D89.2 Hypergammaglobulinemia, unspecified (principal); N18.3 Chronic kidney disease, stage 3 (moderate); E83.52 Hypercalcemia | CPT/HCPCS: 81599; 83883 ==

== ENCOUNTER 2019-08-05 08:00 | Outpatient (CLI) | payer MEDICARE ==
[2019-08-05 13:38] LABS: ALBUMIN 4.1 g/dL (3.2-5.5); ALBUMIN/GLOBULIN RATIO 0.9 (1.0-2.2); BILIRUBIN,TOTAL 0.8 mg/dL (0.2-1.0); CALCIUM 11.5 mg/dL (8.5-10.3); CREATININE 2.6 mg/dL (0.6-1.2); TOTAL PROTEIN 8.5 g/dL (6.7-8.2)
== END 2019-08-05 23:59 | disposition home or self-care (01) ==
LOC: LAB.WCP 08:00
PROVIDERS: ATTEND Internal Medicine Hematology & Oncology
DX: C79.51 Secondary malignant neoplasm of bone (principal)
CPT/HCPCS: 36415; 80053; 82378; 84153

== ENCOUNTER 2020-07-19 14:59 | Emergency (ER) | payer MEDICARE ==
[2020-07-19] MEDS ORDERED: HYDROmorphone 1 MG/ML CARPUJECT IVP STA ×2 (15:27→17:07)
--- NOTE | 2020-07-19 15:33 | ED Physician Documentation ---
History of Present Illness - Stated complaint Stated Complaint: "BONE DEEP PAIN" - Chief complaint Chief Complaint: Back Pain - History obtained from History obtained from: Patient - History of Present Illness Timing: Today Pain level max: 10 Pain level now: 10 - Additonal information Additional information: Patient is a 74-year-old male who states that he has chronic pain secondary to multiple myeloma. Usually in his back, ribs, hips. He takes Vicodin occasionally for this. Today has developed more pain on his bilateral flanks. He took 1 Vicodin this morning without relief. Came in for evaluation. Has had nausea but no vomiting. No fevers. No chills. No falls. Has a history of an appendectomy, but no other abdominal surgeries. Nothing makes it better or worse. He states he hurts everywhere. Review of Systems Ten Systems: 10 systems reviewed and negative Constitutional: denies: Fever, Chills Respiratory: denies: Cough GI: reports: Abdominal Pain (Epigastric, bilateral flank), Nausea. denies: Vomiting, Diarrhea Skin: denies: Rash Musculoskeletal: denies: Neck pain, Back pain Neurologic: denies: Headache PD PAST MEDICAL HISTORY - Past Medical History Past Medical History: Yes Cardiovascular: Hypertension, High cholesterol, Coronary artery disease, Angina Endocrine/Autoimmune: None GI: None : Benign prostate hypertrophy Psych: None Musculoskeletal: Chronic back pain Derm: None Other Past Medical History: multiple myeloma - Past Surgical History Past Surgical History: Yes General: Appendectomy Ortho: Spine surgery - Present Medications Home Medications: Ambulatory Orders Medication Instructions Recorded Confirmed Acyclovir [Zovirax] 400 mg PO DAILY 07/19/20 07/19/20 Bortezomib (Subq) [Velcade (Subq)] 1 INJ 07/19/20 Calcium Carbonate [Calcium] 600 mg PO BID 07/19/20 07/19/20 Cholecalciferol (Vitamin D3) 1,250 07/19/20 [Vitamin D3] Denosumab [Xgeva] 1 INJ 07/19/20 HYDROcod/ACETAM 5/325 [[place] 5/325] 1 tab PO PRN 07/19/20 Lenalidomide [Revlimid] 20 mg PO DAILY 07/19/20 07/19/20 Losartan Potassium 50 mg PO DAILY 07/19/20 07/19/20 NIFEdipine [Procardia Xl] 30 mg PO DAILY 07/19/20 07/19/20 Tamsulosin [Flomax] 0.4 mg PO DAILY 07/19/20 07/19/20 - Allergies Allergies/Adverse Reactions: Allergies Allergy/AdvReac Type Severity Reaction Status Date / Time No Known Drug Allergies Allergy Verified 07/19/20 15:17 - Social History Does the pt smoke?: No Smoking Status: Never smoker Does the pt drink ETOH?: Yes Does the pt have substance abuse?: No - Immunizations Immunizations are current?: Yes Immunizations: TDAP >10years/unknown - POLST Patient has POLST: No PD ED PE NORMAL - Vitals Vital signs reviewed: Yes - General General: Alert and oriented X 3, No acute distress, Well developed/nourished - HEENT HEENT: PERRL, Moist mucous membranes - Neck Neck: Supple, no meningeal sign - Cardiac Cardiac: RRR, Strong equal pulses - Respiratory Respiratory: No respiratory distress, Clear bilaterally - Abdomen Abdomen: Soft, Non distended, Other (Tender to palpation right upper quadrant. Positive Grayson sign) - Back Back: No CVA TTP, No spinal TTP - Derm Derm: Warm and dry - Extremities Extremities: No edema - Neuro Neuro: Alert and oriented X 3 - Psych Psych: Normal mood, Normal affect Results - Vitals Vitals: Vital Signs - 24 hr 07/19/20 07/19/20 07/19/20 15:14 17:17 19:12 Temperature 37.3 C Heart Rate 92 103 H 127 H Respiratory 20 18 20 Rate Blood Pressure 144/65 H 141/67 H 167/59 H O2 Saturation 98 97 94 Oxygen O2 Source Room air - Labs Labs: Laboratory Tests 07/19/20 07/19/20 07/19/20 15:30 15:30 16:00 WBC 5.6 RBC 2.71 L Hgb 9.2 L Hct 27.0 L MCV 99.6 H MCH 33.9 H MCHC 34.1 RDW 15.0 Plt Count 128 L MPV 10.2 Neut # (Auto) 3.9 Lymph # (Auto) 0.8 L Cole # (Auto) 0.8 Eos # (Auto) 0.1 Baso # (Auto) 0.0 Absolute Nucleated RBC 0.00 Nucleated RBC % 0.0 Sodium 138 Potassium 4.0 Chloride 99 L Carbon Dioxide 22 Anion Gap 17.0 H BUN 45 H Creatinine 1.9 H Estimated GFR (MDRD) 35 L Glucose 139 H Calcium 10.0 Total Bilirubin 1.3 H AST 24 ALT 20 Alkaline Phosphatase 42 Total Protein 7.6 Albumin 4.5 Globulin 3.1 Albumin/Globulin Ratio 1.5 Lipase 26 Urine Color YELLOW Urine Clarity HAZY Urine pH 6.5 Ur Specific [place] 1.015 Urine Protein 30 H Urine Glucose (UA) NEGATIVE Urine Ketones NEGATIVE Urine Occult Blood NEGATIVE Urine Nitrite NEGATIVE Urine Bilirubin NEGATIVE Urine Urobilinogen 0.2 (NORMAL) Ur Leukocyte Esterase TRACE H Urine RBC 0-5 Urine WBC 6-10 H Ur Squamous Epith Cells RARE Squamous Urine Bacteria Rare Ur Microscopic Review INDICATED Urine Culture Comments INDICATED Nasal Adenovirus (PCR) Nasal B. parapertussis DNA (PCR) Nasal Coronavir 229E PCR Nasal Coronavir HKU1 PCR Nasal Coronavir NL63 PCR Nasal Coronavir OC43 PCR Nasal Enterovir/Rhinovir PCR Nasal Influenza B PCR Nasal Influenza A PCR Nasal Parainfluen 1 PCR Nasal Parainfluen 2 PCR Nasal Parainfluen 3 PCR Nasal Parainfluen 4 PCR Nasal RSV (PCR) Nasal B.pertussis DNA PCR Nasal C.pneumoniae (PCR) Rey Human Metapneumo PCR Nasal M.pneumoniae (PCR) Nasal SARS-CoV-2 (PCR) 07/19/20 17:00 WBC RBC Hgb Hct MCV MCH MCHC RDW Plt Count MPV Neut # (Auto) Lymph # (Auto) Cole # (Auto) Eos # (Auto) Baso # (Auto) Absolute Nucleated RBC Nucleated RBC % Sodium Potassium Chloride Carbon Dioxide Anion Gap BUN Creatinine Estimated GFR (MDRD) Glucose Calcium Total Bilirubin AST ALT Alkaline Phosphatase Total Protein Albumin Globulin Albumin/Globulin Ratio Lipase Urine Color Urine Clarity Urine pH Ur Specific [place] Urine Protein Urine Glucose (UA) Urine Ketones Urine Occult Blood Urine Nitrite Urine Bilirubin Urine Urobilinogen Ur Leukocyte Esterase Urine RBC Urine WBC Ur Squamous Epith Cells Urine Bacteria Ur Microscopic Review Urine Culture Comments Nasal Adenovirus (PCR) NOT DETECTED Nasal B. parapertussis DNA (PCR) NOT DETECTED Nasal Coronavir 229E PCR NOT DETECTED Nasal Coronavir HKU1 PCR NOT DETECTED Nasal Coronavir NL63 PCR NOT DETECTED Nasal Coronavir OC43 PCR NOT DETECTED Nasal Enterovir/Rhinovir PCR NOT DETECTED Nasal Influenza B PCR NOT DETECTED Nasal Influenza A PCR NOT DETECTED Nasal Parainfluen 1 PCR NOT DETECTED Nasal Parainfluen 2 PCR NOT DETECTED Nasal Parainfluen 3 PCR NOT DETECTED Nasal Parainfluen 4 PCR NOT DETECTED Nasal RSV (PCR) NOT DETECTED Nasal B.pertussis DNA PCR NOT DETECTED Nasal C.pneumoniae (PCR) NOT DETECTED Rey Human Metapneumo PCR NOT DETECTED Nasal M.pneumoniae (PCR) NOT DETECTED Nasal SARS-CoV-2 (PCR) NOT DETECTED - Rads (name of study) right Upper quadrant ultrasound Radiology: Prelim report reviewed, EMP read contemporaneously, See rad report (Findings consistent with acute calculus cholecystitis. Additionally, a 5 mm gallstone is seen within the dilated common bile duct.) PD MEDICAL DECISION MAKING - ED course Complexity details: reviewed results, re-evaluated patient, considered d ifferential, d/w patient, d/w customer sales consultant ED course: 74-year-old male with a history of multiple myeloma, presents to the emergency department with right upper quadrant abdominal pain. Found to have cholecystitis on ultrasound. No significant bilirubin or alkaline phosphatase elevation. Pain well controlled. Will place on Zosyn. Does have a history of a heart murmur, but denies any history of heart attacks. Denies any stents. States he had a cardiac echo about 6 months ago which was reportedly normal per the patient. This was done at [facility]. Discussed the case with Dr. Fong, general surgery who will place the patient in observation tonight for repeat evaluation in the morning. This document was made in part using voice recognition software. While efforts are made to proofread this document, sound alike and grammatical errors may occur. Also discussed the case with Dr. Celis, hospitalist who will consult. Up on final read of the ultrasound, does appear that there is a choledocholithiasis as well, therefore we will attempt to transfer the patient to [facility] where he has his oncology care. Discussed the case with [facility], they do not have ERCP available. Therefore we will try [facility] in [place]. Discussed with ALEXANDRO Rodrigues on-call who recommends transfer. Discussed with Dr. Sauceda, who graciously accepts in transfer as the hospitalist at [facility] in [place]. COBRA forms completed at 1910. Patient did develop chills just prior to leaving with the ambulance. Blood pressure stable, heart rate became tachycardic, given Tylenol and IV fluids. EMS will monitor on route. Patient states he feels normal, just cold. Departure - Departure Disposition: 02 Transfer Acute Care Hosp Clinical Impression: Cholecystitis, Choledocholithiasis with acute cholecystitis Condition: Good
[2020-07-19 15:39] LABS: BASOPHILS % (AUTO) 0.7 %; EOSINOPHILS # (AUTO) 0.1 10^3/uL (0.0-0.7); EOSINOPHILS % (AUTO) 1.1 %; HGB - HEMOGLOBIN 9.2 g/dL (14.0-18.0); LYMPHOCYTES # (AUTO) 0.8 10^3/uL (1.5-3.5); LYMPHOCYTES % (AUTO) 13.6 %; MEAN CORPUSCULAR HEMOGLOBIN 33.9 pg (27.0-31.0); MEAN CORPUSCULAR HGB CONC 34.1 g/dL (32.0-36.0); MEAN CORPUSCULAR VOLUME 99.6 fL (80.0-94.0); MEAN PLATELET VOLUME 10.2 fL (7.4-11.4); MONOCYTES # (AUTO) 0.8 10^3/uL (0.0-1.0); MONOCYTES % (AUTO) 14.1 %; NEUTROPHILS # (AUTO) 3.9 10^3/uL (1.5-6.6); PLT - PLATELET COUNT 128 10^3/uL (130-450); RED BLOOD COUNT 2.71 10^6/uL (4.70-6.10); WHITE BLOOD COUNT 5.6 x10^3/uL (4.8-10.8)
[2020-07-19 15:53] LABS: ALBUMIN 4.5 g/dL (3.2-5.5); ALBUMIN/GLOBULIN RATIO 1.5 (1.0-2.2); BILIRUBIN,TOTAL 1.3 mg/dL (0.2-1.0); CREATININE 1.9 mg/dL (0.6-1.2); TOTAL PROTEIN 7.6 g/dL (6.7-8.2)
[2020-07-19 16:04] LABS: BILIRUBIN,URINE NEGATIVE (NEGATIVE); GLUCOSE, URINE (UA) NEGATIVE (NEGATIVE); KETONES,URINE (UA) NEGATIVE (NEGATIVE); LEUKOCYTE ESTERASE, URINE TRACE (NEGATIVE); NITRITE,URINE NEGATIVE (NEGATIVE); OCCULT BLOOD,URINE NEGATIVE (NEGATIVE); PH,URINE 6.5 PH (5.0-7.5); PROTEIN,URINE 30 mg/dL (NEGATIVE); UROBILINOGEN,URINE 0.2 (NORMAL) E.U./dL (NORMAL)
[2020-07-19 16:12] LABS: BACTERIA,URINE Rare /HPF (None Seen); CLARITY,URINE HAZY (CLEAR); RBC,URINE 0-5 /HPF (0-5); SQUAMOUS EPITHELIAL CELL,UR RARE Squamous (<= Few)
[2020-07-19] MEDS ORDERED: PIPERACILLIN/TAZOBACTAM 3.375 GM in SODIUM CHLORIDE 0.9% MINIBAG 100 ML IV STA (16:55)
[2020-07-19] MEDS ORDERED: ONDANSETRON 4 MG/2 ML VIAL IVP STA (17:07)
[2020-07-19] MEDS ORDERED: SODIUM CHLORIDE 0.9% 1,000 ML IV STA ×2 (17:08→19:01)
--- NOTE | 2020-07-19 17:18 | CONSULTATION NOTE ---
Referring Provider Name of Referring Provider:: Macy Fong MD Consult Date: 07/19/20 Chief Complaint - Chief Complaint Chief Complaint: abd pain, to go to OR for lap lucina History of Present Illness - Admitted From Admitted From:: home via ER - History Obtained From Records Reviewed: [facility] History obtained from: Patient and Dr. Rivera Exam Limitations: none History - Past Medical History Cardiovascular: reports: Hypertension, High cholesterol, Coronary artery disease, Angina Respiratory: reports: Sleep apnea (Severe, has worn CPAP mask since 2014.) Endocrine/Autoimmune: reports: None GI: reports: GERD : reports: Benign prostate hypertrophy Psych: reports: None Musculoskeletal: reports: Chronic back pain Derm: reports: None MRSA Hx?: No Other Past Medical History: multiple myeloma - Past Surgical History General: reports: Appendectomy Ortho: reports: Spine surgery - Family & Social History Living arrangement: At home Living Situation: With spouse/s.o. 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 He smoked cigarettes for 40 years and quit in 1970. Rarely drinks alcohol. - Substance History Use: Uses substance without health or social issues: NONE Abuse: Recurrent use of substance despite neg consequences: NONE Dependence: Experiences withdrawal or developed tolerances: NONE - POLST Patient has POLST: No Meds/Allgy - Home Medications Home Medications: Ambulatory Orders Medication Instructions Recorded Confirmed Acyclovir [Zovirax] 400 mg PO DAILY 07/19/20 07/19/20 Bortezomib (Subq) [Velcade (Subq)] 1 INJ 07/19/20 Denosumab [Xgeva] 1 INJ 07/19/20 HYDROcod/ACETAM 5/325 [[place] 5/325] 1 tab PO PRN 07/19/20 Lenalidomide [Revlimid] 20 mg PO DAILY 07/19/20 07/19/20 Losartan Potassium 50 mg PO DAILY 07/19/20 07/19/20 NIFEdipine [Procardia Xl] 30 mg PO DAILY 07/19/20 07/19/20 Tamsulosin [Flomax] 0.4 mg PO DAILY 07/19/20 07/19/20 - Allergies Allergies/Adverse Reactions: Allergies Allergy/AdvReac Type Severity Reaction Status Date / Time No Known Drug Allergies Allergy Verified 07/19/20 15:17 Exam - Vital Signs Vital Signs: Vital Signs x48h Temp Pulse Resp BP Pulse Ox 07/19/20 15:14 37.3 C 92 20 144/65 H 98 Conclusion/Plan - Lab Results Fish Bones: 07/19/20 15:30 07/19/20 15:30
--- NOTE | 2020-07-19 17:21 | Ultrasound Report ---
PROCEDURE: Abdomen Limited INDICATIONS: RUQ abd pain TECHNIQUE: Real-time focused scanning was performed of the abdomen, with image documentation. COMPARISON: None. FINDINGS: Visualized portions of the pancreas are unremarkable. The remainder of the pancreas is obscured by kaylan wel gas. No focal hepatic lesion. Liver length of 17.5 cm. Common bile duct diameter of 10 mm and common hepatic duct diameter of 7 mm. And echogenic focus magda uring 5 mm present in the common bile duct consistent with choledocholithiasis. There are multiple layering stones in the gallbladder. The gallbladder wall is thickened at 8 mm. In addition, the gallbladder is hydropic measuring 11.5 cm in length. A small amount of pericholecystic fluid is present in the gallbladder fossa. Right kidney is without hydronephrosis. Its length measures 1.8 cm. Cortical thickness of 1.5 cm, wit hin normal limits. The inferior vena cava is patent. IMPRESSION: Findings consistent with acute calculus cholecystitis. Additionally, a 5 mm gallstone is seen within the dilated common bile duct. Reviewed by: Rommel Ramirez on 07/19/2020 4:19 PM [facility] Approved by: Rommel Ramirez on 07/19/2020 4:19 PM GODFRE[facility] Station ID: [id number]
[2020-07-19 18:00] LABS: B. PARAPERTUSSIS- RESP PCR PAN NOT DETECTED; B. PERTUSSIS- RESP PCR PANEL NOT DETECTED; C. PNEUMONIAE- RESP PCR PANEL NOT DETECTED; CORONAVIRUS 229E-RESP PCR NOT DETECTED; CORONAVIRUS HKU1-RESP PCR NOT DETECTED; CORONAVIRUS NL63-RESP PCR NOT DETECTED; CORONAVIRUS OC43-RESP PCR NOT DETECTED; HUMAN METAPNEUMOVIRUS NOT DETECTED; INFLUENZA A- RESP PCR PANEL NOT DETECTED; INFLUENZA B - RESP PCR PANEL NOT DETECTED; M. PNEUMONIAE- RESP PCR PANEL NOT DETECTED; PARAINFLUENZA VIRUS 1 NOT DETECTED; PARAINFLUENZA VIRUS 2 NOT DETECTED; PARAINFLUENZA VIRUS 3 NOT DETECTED; PARAINFLUENZA VIRUS 4 NOT DETECTED; RHINOVIRUS/ENTEROVIRUS NOT DETECTED; RSV- RESP PCR PANEL NOT DETECTED; SARS-CoV-2 -RESP PCR PANEL NOT DETECTED
[2020-07-19] MEDS ORDERED: ACETAMINOPHEN 325 MG TABLET PO STA (19:01)
[2020-07-19 19:12] VITALS: BP 167/59
--- OUTSIDE RECORDS SUMMARY | 2020-07-22 02:45 | EXTERNAL MEDICAL SUMMARY RPT | Continuity of Care Document ---
:1945 Demographics Phone Unavailable Preferred Language Unknown Marital Status Unknown Worship Affiliation Unknown Race Unknown Ethnic Group Unknown Author Organization [facility] Address [address] [phone] Phone Problems date description facility [id number] cholelithiasis [facility] Social History date description facility [id number]
== END 2020-07-19 19:31 | disposition short-term general hospital (02) ==
LOC: ED 14:59 → SUPCPDRO 14:59 → ED 19:31
DX: K80.62 Calculus of gallbladder and bile duct with acute cholecystitis without obstruction (principal); C90.00 Multiple myeloma not having achieved remission; G89.29 Other chronic pain; I10 Essential (primary) hypertension; R01.1 Cardiac murmur, unspecified; R68.83 Chills (without fever); R00.0 Tachycardia, unspecified; Z20.822 Contact with and (suspected) exposure to COVID-19
CPT/HCPCS: 36415; 76705; 80053; 81001; 83690; 85025; 87086; 87631; 96361; 96365; 96375; 96376; 99284; 99285; A9270; J1170; 0202U; 81003

== ENCOUNTER 2020-07-19 19:25 | Outpatient (CLI) | payer MEDICARE | END 2020-07-19 19:26 | disposition short-term general hospital (02) | LOC: EMS 19:25 | PROVIDERS: ATTEND Emergency Medicine | DX: K80.40 Calculus of bile duct with cholecystitis, unspecified, without obstruction (principal) | CPT/HCPCS: A0425; A0426 ==

== ENCOUNTER 2020-09-23 10:55 | Outpatient (CLI) | payer MEDICARE ==
--- NOTE | 2020-09-23 11:33 | SLEEP CARE CONSULTATION ---
Information from patient questionnaire entered by Carnia Werner. I have reviewed and concur with the information entered by Carina Werner. This document represents the service I personally performed and the decisions made by , Caryn Vernon ARNP. History of Present Illness Service Date and Time: 09/23/2020 1055 Previous diagnosis: Severe, Obstructive Sleep Apnea-Hypopnea Syndrome, Central Sleep Apnea-Hypopnea Syndrome AHI: 30.8 (in 2014) Reason for follow up: annual (last seen 03/2019) Equipment type: CPAP Equipment obtained from: [employer] (no longer giving supplies) Mask style: Nasal Prior sleep studies: Yes Year and Where: 2014 - [facility] Type of Sleep Study: Home sleep study HPI additional information: JACQUIE LEMUS was diagnosed to have severe, AHI 30.8, obstructive sleep apnea- hypopnea syndrome and returned today for CPAP therapy annual follow-up. CPAP Compliance Data - Data Reviewed with Patient Average duration of nightly device use: 7 hr 31 min Compliance rate %: 42.9 (last 7 days) Current pressure setting (cmH2O): 4 Humidity settin Heated hose settin Average residual AHI: 1.7 Average large leak: 20 sec Oxygen usage: Nocturnal Compliance data discussion: He stopped using CPAP for about a year after cancer diagnosis. He was having more fatigue and he started using it again for last 3 days. Subjective Missed days of use due to: reports: illness Patient concerns: reports: dry mouth, nose, throat (humidity chamber not working), other (older machine). denies: aerophagia, mask discomfort, air blowing in eyes, mask leak noise, condensation in mask/hose, nasal congestion, epistaxis Observed to snore while using device: No Current pressure setting perceived as: comfortable On therapy, patient: reports: sleeping better, awakening more refreshed, being more awake and alert during the day, more rested overall. denies: drowsiness while driving Initial [place] Sleepiness Scale score: 15 (in 2014) Current [place] Sleepiness Scale score: 14 Allergies and Home Medications Drug allergies reviewed: Yes (NKDA) Home medication list reviewed: Yes (same as listed in chart) Review of Systems Review of systems same as previous: No (multiple myeloma, gallbladder surgery Monday) Physical Exam Heart Rate: 82 O2 Saturation: 93 Height: 6 ft 2 in Weight: 207 lb Body Mass Index: 26.6 BMI Classification: Overweight Impression and Plan 1. Obstructive Sleep Apnea-Hypopnea Syndrome, severe, with poor treatment compliance and good apnea control. On CPAP therapy, the patient has better sleep quality and is more rested overall. Patient was diagnosed with multiple myeloma 1.5 years ago and his last year. Due to life stress, he decided to stop using his CPAP machine and has not for the last 1.5 years. 3 days ago he started using his CPAP because he was having progressively increasing fatigue during the day. He noticed in the last 3 days with use that he is feeling better and more rested and would like to restart his CPAP machine. He needs supplies and he also has a machine that is needing to be updated. I discussed with him that we will need a full 30-day compliance report before we can order him a new machine. He voiced understanding. He would also like to transfer to a new [employer] company since his last one is no longer dealing with supplies. Patient's apnea severity and rationale for treatment to reduce apnea, improve sleep quality and reduce cardiovascular and cerebrovascular events was reviewed. I also reviewed the benefit of consistent device use of CPAP for hypertension, and gastric reflux. * Continue auto CPAP pressure at 4 cmH2O * Recheck compliance in 30 days * Notify me if snoring with mask or feeling that the pressure is too much or too little * Attempt to lose weight * Call this office if any problems using CPAP * Return for follow up in 1-2 months, or sooner if concerns arise Counseling Topics: Spare mask, Weight loss health impact Visit Type: In Office Time Spent with Patient (minutes): 23 Provider Statement: I spent 100% of the Face to Face Visit with the patient with greater than 50% spent counseling the patient and coordination of care.
== END 2020-09-23 10:56 | disposition home or self-care (01) ==
LOC: SC 10:55
PROVIDERS: ATTEND Nurse Practitioner Family
DX: G47.33 Obstructive sleep apnea (adult) (pediatric) (principal); E66.3 Overweight; Z68.26 Body mass index [BMI] 26.0-26.9, adult
CPT/HCPCS: 99213; G0463; 99212

== ENCOUNTER 2020-10-28 14:08 | Outpatient (CLI) | payer MEDICARE ==
--- NOTE | 2020-10-28 14:27 | SLEEP CARE CONSULTATION ---
Information from patient questionnaire entered by Carina Werner. I have reviewed and concur with the information entered by Carina Werner. This document represents the service I personally performed and the decisions made by , Caryn Vernon ARNP. History of Present Illness Service Date and Time: 10/28/2020 1408 Previous diagnosis: Severe, Obstructive Sleep Apnea-Hypopnea Syndrome AHI: 30.8 (in 2014) Reason for follow up: one month (compliance check) Equipment type: CPAP Equipment obtained from: [facility] (no longer giving supplies) Mask style: Nasal Backup mask available: No (need supplies) Prior sleep studies: Yes Year and Where: 2014 - [facility] Type of Sleep Study: Home sleep study HPI additional information: JACQUIE LEMUS was diagnosed to have severe, AHI 30.8, obstructive sleep apnea- hypopnea syndrome and returned today for CPAP therapy one month - compliance to transfer DME follow-up. CPAP Compliance Data - Data Reviewed with Patient Average duration of nightly device use: 6 hr 39 min Compliance rate %: 80 Current pressure setting (cmH2O): 4 Humidity settin Heated hose settin Average residual AHI: 1.4 Average large leak: 34 sec Subjective Missed days of use due to: reports: travel Patient concerns: denies: aerophagia, mask discomfort, air blowing in eyes, mask leak noise, condensation in mask/hose, nasal congestion, dry mouth, nose, throat, epistaxis, other Observed to snore while using device: No Current pressure setting perceived as: comfortable On therapy, patient: reports: sleeping better, awakening more refreshed, being more awake and alert during the day, more rested overall. denies: drowsiness while driving Initial [place] Sleepiness Scale score: 15 (in 2014) Current [place] Sleepiness Scale score: 9 Allergies and Home Medications Home medication list reviewed: Yes (no changes) Review of Systems Review of systems same as previous: Yes (multiple myeloma) Physical Exam Heart Rate: 93 O2 Saturation: 98 Height: 6 ft 2 in Weight: 202 lb Body Mass Index: 25.9 BMI Classification: Overweight Impression and Plan 1. Obstructive Sleep Apnea-Hypopnea Syndrome, severe, with good treatment compliance and good apnea control. On CPAP therapy, the patient has better sleep quality and is more rested overall. Patient has reached compliance and we can now update his machine and transfer him to a new DME company to update his supplies. I will have my psych coordinator inform of DME options. Patient advised to contact this office if further supply problems. The patients CPAP is over 5 years old and of reasonable use. In addition, the heater is not working, a sign of malfunction and it is on the [employer] recall. Thus, the CPAP will be updated. A DWO prescription will be made. Compliance guidelines for new device and follow up discussed. Patient advised to register his device on the [employer] website and he voiced understanding. Patient denied any black particles noted in his water chamber, hoses and mask. Patient's apnea severity and rationale for treatment to reduce apnea, improve sleep quality and reduce cardiovascular and cerebrovascular events was reviewed. I also reviewed the benefit of consistent device use of CPAP for hypertension and gastric reflux. Patient is trying to control his weight and weighs himself on Mondays. * Continue autoCPAP pressure at 4 cmH2O * Transfer DME * Update machine and supplies * Notify me if snoring with mask or feeling that the pressure is too much or too little * Continue to try to lose weight * Call this office if any problems using CPAP * Return for follow up one month after obtaining new device, or sooner if concerns arise Counseling Topics: Spare mask, Weight loss health impact Visit Type: In Office Time Spent with Patient (minutes): 13 Provider Statement: I spent 100% of the Face to Face Visit with the patient with greater than 50% spent counseling the patient and coordination of care.
== END 2020-10-28 14:09 | disposition home or self-care (01) ==
LOC: SC 14:08
PROVIDERS: ATTEND Nurse Practitioner Family
DX: G47.33 Obstructive sleep apnea (adult) (pediatric) (principal); G47.31 Primary central sleep apnea
CPT/HCPCS: 99212; G0463

== ENCOUNTER 2021-01-04 17:21 | Emergency (ER) | payer MEDICARE ==
[2021-01-04 19:38] LABS: BASOPHILS % (AUTO) 0.6 %; EOSINOPHILS # (AUTO) 0.5 10^3/uL (0.0-0.7); EOSINOPHILS % (AUTO) 13.8 %; HCT - HEMATOCRIT 28.8 % (42.0-52.0); HGB - HEMOGLOBIN 9.5 g/dL (14.0-18.0); LYMPHOCYTES # (AUTO) 0.6 10^3/uL (1.5-3.5); LYMPHOCYTES % (AUTO) 16.8 %; MEAN CORPUSCULAR HEMOGLOBIN 33.7 pg (27.0-31.0); MEAN CORPUSCULAR VOLUME 102.1 fL (80.0-94.0); MEAN PLATELET VOLUME 10.6 fL (7.4-11.4); MONOCYTES # (AUTO) 0.4 10^3/uL (0.0-1.0); MONOCYTES % (AUTO) 11.5 %; NEUTROPHILS # (AUTO) 1.9 10^3/uL (1.5-6.6); NEUTROPHILS % (AUTO) 54.9 %; PLT - PLATELET COUNT 94 10^3/uL (130-450); RED BLOOD COUNT 2.82 10^6/uL (4.70-6.10); RED CELL DISTRIBUTION WIDTH 14.5 % (12.0-15.0); WHITE BLOOD COUNT 3.4 x10^3/uL (4.8-10.8)
[2021-01-04 19:44] LABS: INR 1.1 (0.8-1.2); PT - PROTHROMBIN TIME 12.7 secs (9.9-12.6)
[2021-01-04 19:51] LABS: ALBUMIN 3.6 g/dL (3.2-5.5); ALBUMIN/GLOBULIN RATIO 0.9 (1.0-2.2); CALCIUM 8.8 mg/dL (8.5-10.3); CREATININE 1.7 mg/dL (0.6-1.2); PARTIAL THROMBOPLASTIN TIME 29.7 secs (24.9-33.3); POTASSIUM 4.5 mmol/L (3.5-5.0); TOTAL PROTEIN 7.6 g/dL (6.7-8.2)
--- NOTE | 2021-01-04 20:21 | XRAY Report ---
PROCEDURE: Chest 1 View X-Ray INDICATIONS: cough, covid TECHNIQUE: One view of the chest was acquired. COMPARISON: Chest x-ray 05/23/2019 FINDINGS: Surgical changes and devices: None. Lungs and pleura: No pleural effusions or pneumothorax. Chronic interstitial changes are present. Th ere is mild appearance of increased opacity within the bases particularly on the left. Mediastinum: Mediastinal contours appear normal. Heart size is mildly enlarged. Bones and chest wall: No suspicious bony lesions. Overlying soft tissues appear unremarkable. IMPRESSION: Chronic interstitial changes with slight increased bibasilar opacities, left greater than right sugge stive airspace disease such as pneumonia. Reviewed by: Lyla Gibson MD on 01/04/2021 8:20 PM PDT Approved by: Lyla Gibson MD on 01/04/2021 8:20 PM PDT Station ID: [id number]
[2021-01-04 20:48] LABS: BILIRUBIN,URINE NEGATIVE (NEGATIVE); GLUCOSE, URINE (UA) NEGATIVE (NEGATIVE); KETONES,URINE (UA) NEGATIVE (NEGATIVE); LEUKOCYTE ESTERASE, URINE NEGATIVE (NEGATIVE); NITRITE,URINE NEGATIVE (NEGATIVE); OCCULT BLOOD,URINE NEGATIVE (NEGATIVE); PH,URINE 6.5 PH (5.0-7.5); PROTEIN,URINE 30 mg/dL (NEGATIVE); UROBILINOGEN,URINE 0.2 (NORMAL) E.U./dL (NORMAL)
[2021-01-04 20:49] LABS: CLARITY,URINE CLEAR (CLEAR)
[2021-01-04 21:00] LABS: BACTERIA,URINE None Seen /HPF (None Seen); RBC,URINE 0-5 /HPF (0-5); SQUAMOUS EPITHELIAL CELL,UR NONE SEEN (<= Few); WBC,URINE 0-3 /HPF (0-3)
--- NOTE | 2021-01-04 21:26 | ED Physician Documentation ---
History of Present Illness - Stated complaint Stated Complaint: C+,COUGH,ACHES,LOW ENERGY - Chief complaint Chief Complaint: Resp - History obtained from History obtained from: Patient - History of Present Illness Timing: How many weeks ago (3) Pain level max: 0 Pain level now: 0 - Additonal information Additional information: 75-year-old male states he has been sick for the past 3 weeks. Has a history of multiple myeloma. Has been positive for Covid for the past 3 weeks. Feels mostly tired. Dry cough. No hypoxia or respiratory distress. Nothing makes it better or worse. He is vaccinated. Review of Systems Constitutional: reports: Fever, Chills Throat: denies: Sore throat Cardiac: denies: Chest pain / pressure Respiratory: reports: Cough. denies: Dyspnea GI: denies: Abdominal Pain, Nausea, Vomiting, Diarrhea Skin: denies: Rash Musculoskeletal: denies: Neck pain, Back pain Neurologic: denies: Headache PD PAST MEDICAL HISTORY - Past Medical History Past Medical History: Yes Cardiovascular: Hypertension, High cholesterol, Coronary artery disease, Angina Endocrine/Autoimmune: None GI: None : Benign prostate hypertrophy Psych: None Musculoskeletal: Chronic back pain Derm: None - Past Surgical History Past Surgical History: Yes General: Cholecystectomy, Appendectomy Ortho: Spine surgery - Present Medications Home Medications: Ambulatory Orders Medication Instructions Recorded Confirmed Acyclovir [Zovirax] 400 mg PO DAILY 07/19/20 07/19/20 Bortezomib (Subq) [Velcade (Subq)] 1 INJ 07/19/20 Calcium Carbonate [Calcium] 600 mg PO BID 07/19/20 07/19/20 Cholecalciferol (Vitamin D3) 1,250 07/19/20 [Vitamin D3] Denosumab [Xgeva] 1 INJ 07/19/20 HYDROcod/ACETAM 5/325 [[place] 5/325] 1 tab PO PRN 07/19/20 Lenalidomide [Revlimid] 20 mg PO DAILY 07/19/20 07/19/20 Losartan Potassium 50 mg PO DAILY 07/19/20 07/19/20 NIFEdipine [Procardia Xl] 30 mg PO DAILY 07/19/20 07/19/20 Tamsulosin [Flomax] 0.4 mg PO DAILY 07/19/20 07/19/20 - Allergies Allergies/Adverse Reactions: Allergies Allergy/AdvReac Type Severity Reaction Status Date / Time No Known Drug Allergies Allergy Verified 07/19/20 15:17 - Social History Does the pt smoke?: No Smoking Status: Never smoker Does the pt drink ETOH?: Yes Does the pt have substance abuse?: No - Immunizations Immunizations are current?: Yes Immunizations: TDAP >10years/unknown - POLST Patient has POLST: No PD ED PE NORMAL - Vitals Vital signs reviewed: Yes - General General: Alert and oriented X 3, No acute distress - HEENT HEENT: Moist mucous membranes - Neck Neck: Supple, no meningeal sign - Cardiac Cardiac: RRR - Respiratory Respiratory: No respiratory distress, Clear bilaterally - Abdomen Abdomen: Soft, Non distended - Derm Derm: Warm and dry - Extremities Extremities: No edema, No calf tenderness / cord - Neuro Neuro: Alert and oriented X 3 - Psych Psych: Normal mood, Normal affect Results - Vitals Vitals: Oxygen O2 Source Room air - Labs Labs: Microbiology 01/04/21 19:30 Blood Culture - Preliminary Blood NO GROWTH AFTER 2 DAYS 01/04/21 19:30 Blood Culture - Preliminary Blood NO GROWTH AFTER 2 DAYS Laboratory Tests 01/04/21 01/04/21 01/04/21 19:30 19:30 19:30 WBC 3.4 L RBC 2.82 L Hgb 9.5 L Hct 28.8 L MCV 102.1 H MCH 33.7 H MCHC 33.0 RDW 14.5 Plt Count 94 L MPV 10.6 Neut # (Auto) 1.9 Lymph # (Auto) 0.6 L Teller # (Auto) 0.4 Eos # (Auto) 0.5 Baso # (Auto) 0.0 Absolute Nucleated RBC 0.00 Nucleated RBC % 0.0 PT 12.7 H INR 1.1 APTT 29.7 Sodium 140 Potassium 4.5 Chloride 103 Carbon Dioxide 25 Anion Gap 12.0 BUN 27 H Creatinine 1.7 H Estimated GFR (MDRD) 40 L Glucose 96 Lactic Acid Calcium 8.8 Total Bilirubin 1.0 AST 29 ALT 36 Alkaline Phosphatase 43 Total Protein 7.6 Albumin 3.6 Globulin 4.0 Albumin/Globulin Ratio 0.9 L Lipase 30 Urine Color Urine Clarity Urine pH Ur Specific [place] Urine Protein Urine Glucose (UA) Urine Ketones Urine Occult Blood Urine Nitrite Urine Bilirubin Urine Urobilinogen Ur Leukocyte Esterase Urine RBC Urine WBC Ur Squamous Epith Cells Urine Bacteria Ur Microscopic Review Urine Culture Comments 01/04/21 01/04/21 19:30 20:31 WBC RBC Hgb Hct MCV MCH MCHC RDW Plt Count MPV Neut # (Auto) Lymph # (Auto) Teller # (Auto) Eos # (Auto) Baso # (Auto) Absolute Nucleated RBC Nucleated RBC % PT INR APTT Sodium Potassium Chloride Carbon Dioxide Anion Gap BUN Creatinine Estimated GFR (MDRD) Glucose Lactic Acid 0.9 Calcium Total Bilirubin AST ALT Alkaline Phosphatase Total Protein Albumin Globulin Albumin/Globulin Ratio Lipase Urine Color YELLOW Urine Clarity CLEAR Urine pH 6.5 Ur Specific [place] 1.010 Urine Protein 30 H Urine Glucose (UA) NEGATIVE Urine Ketones NEGATIVE Urine Occult Blood NEGATIVE Urine Nitrite NEGATIVE Urine Bilirubin NEGATIVE Urine Urobilinogen 0.2 (NORMAL) Ur Leukocyte Esterase NEGATIVE Urine RBC 0-5 Urine WBC 0-3 Ur Squamous Epith Cells NONE SEEN Urine Bacteria None Seen Ur Microscopic Review INDICATED Urine Culture Comments NOT INDICATED - Rads (name of study) cxr Radiology: Final report received, EMP read contemporaneously, See rad report (Chronic interstitial changes with slight increased bibasilar opacities, left greater than right suggestive of airspace disease.) PD MEDICAL DECISION MAKING - ED course Complexity details: reviewed results, re-evaluated patient, considered differential, d/w patient ED course: Patient has COVID-19. No hypoxia. No respiratory distress. No evidence of bacterial infection. Patient is well-appearing, nontoxic. Afebrile. Patient counseled regarding signs and symptoms for which I believe and urgent re- evaluation would be necessary. Patient with good understanding of and agreement to plan and is comfortable going home at this time This document was made in part using voice recognition software. While efforts are made to proofread this document, sound alike and grammatical errors may occur. Departure - Departure Disposition: Home, Self Care Clinical Impression: COVID-19 Condition: Good Instructions: COVID-19 [facility] Department of Health Follow-Up: Austin Judge MD [Primary Care Provider] - Comments: Your oxygen levels are normal. Your testing does not show any acute abnormalities today. Make sure you are drinking plenty of fluids at home. Follow-up with your doctor for further care. Discharge Date/Time: 01/04/21 21:56
[2021-01-04 21:53] VITALS: BP 124/86
== END 2021-01-04 21:56 | disposition home or self-care (01) ==
LOC: ED 17:21
DX: U07.1 COVID-19 (principal); I10 Essential (primary) hypertension
CPT/HCPCS: 36415; 80053; 81001; 81003; 83605; 83690; 85025; 85610; 85730; 87040; 87086; 99283; 99284

== ENCOUNTER 2021-01-05 13:43 | Outpatient (CLI) | payer MEDICARE ==
--- NOTE | 2021-01-05 13:16 | SLEEP CARE CONSULTATION ---
Information from patient questionnaire entered by Gemini Olsen. I have reviewed and concur with the information entered by Gemini Olsen. This document represents the service I personally performed and the decisions made by , Caryn Vernon ARNP. History of Present Illness Service Date and Time: 01/05/2021 1300 Previous diagnosis: Severe, Obstructive Sleep Apnea-Hypopnea Syndrome, Central Sleep Apnea-Hypopnea Syndrome AHI: 30.8 (in 2014) Reason for follow up: first compliance (set up 11/24/20), first compliance after device update Equipment type: CPAP Equipment obtained from: [employer] (getting supplies as needed) Mask style: Nasal Backup mask available: No (will keep old mask when replaced) Last cushion change: 1 month Prior sleep studies: Yes Year and Where: 2014 - [facility] Type of Sleep Study: Home sleep study HPI additional information: JACQUIE LEMUS was diagnosed to have severe, AHI 30.8, obstructive sleep apnea- hypopnea syndrome and returns via Video Telehealth visit today for CPAP therapy first compliance after updating device follow-up. Sleep Study - Results Type of Sleep Study: Home sleep study Prior sleep studies: Yes Year and Where: 2014 - [facility] [employer] [facility] CPAP Compliance Data - Data Reviewed with Patient Average duration of nightly device use: 5 hours 32 minutes Compliance rate %: 83.3 Current pressure setting (cmH2O): 4 Humidity settin Heated hose settin Average residual AHI: 2.4 Hypopnea: 14 seconds Subjective Missed days of use due to: reports: illness (has Covid x 3 weeks, falling asleep without for couple hours) Patient concerns: denies: aerophagia, mask discomfort, air blowing in eyes, mask leak noise, condensation in mask/hose, nasal congestion, dry mouth, nose, throat, epistaxis, other Observed to snore while using device: No Current pressure setting perceived as: comfortable On therapy, patient: reports: sleeping better, awakening more refreshed, being more awake and alert during the day, more rested overall. denies: drowsiness while driving Initial [place] Sleepiness Scale score: 15 (in 2014) Current [place] Sleepiness Scale score: 1 Allergies and Home Medications Home medication list reviewed: Yes (no changes) Review of Systems Review of systems same as previous: Yes (no changes) Physical Exam Vital signs obtained and entered by: Telehealth visit to limit exposure during Covid pandemic Height: 6 ft 2 in Impression and Plan 1. Obstructive Sleep Apnea-Hypopnea Syndrome, severe, with good treatment compliance and good apnea control. On CPAP therapy, the patient has better sleep quality and is more rested overall. Patient has no concerns for issues with using his CPAP machine. Patient is satisfied with current treatment. I do not think we need to do any changes and he can follow-up next year. Patient was encouraged to lose weight for their overall health and to reduce apneas. Patient's apnea severity and rationale for treatment to reduce apnea, improve sleep quality and reduce cardiovascular and cerebrovascular events was reviewed. I also reviewed the benefit of consistent device use of CPAP for hypertension and gastric reflux. * Continue CPAP pressure at 4 cmH2O * Notify me if snoring with mask or feeling that the pressure is too much or too little * Attempt to lose weight * Call this office if any problems using CPAP * Return for follow up in 1 year, or sooner if concerns arise Counseling Topics: Spare mask, Weight loss health impact Visit Type: Telehealth Video Video Type: Abraham Patient Location: Home Location of Provider: Office Patient agrees and consents to this telehealth visit type: Yes Patient agrees to have their insurance billed: Yes Time Spent with Patient (minutes): 14 Provider Statement: I spent 100% of the Telehealth Video Call with the patient with greater than 50% spent counseling the patient and coordination of care.
== END 2021-01-05 13:44 | disposition home or self-care (01) ==
LOC: SC 13:43
PROVIDERS: ATTEND Nurse Practitioner Family
DX: G47.33 Obstructive sleep apnea (adult) (pediatric) (principal); G47.31 Primary central sleep apnea

== ENCOUNTER 2021-10-07 13:57 | Outpatient (CLI) | payer OTHER, MEDICARE | END 2021-10-07 13:58 | disposition critical access hospital (66) | LOC: EMS 13:57 | DX: R55 Syncope and collapse (principal); R41.0 Disorientation, unspecified; R61 Generalized hyperhidrosis; R11.0 Nausea; R32 Unspecified urinary incontinence; R06.4 Hyperventilation; V47.5XXA Car driver injured in collision with fixed or stationary object in traffic accident, initial encounter; Y92.414 Local residential or business street as the place of occurrence of the external cause | CPT/HCPCS: A0425; A0427 ==

== ENCOUNTER 2021-10-07 14:09 | Emergency (ER) | payer OTHER, MEDICARE ==
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
[2021-10-07] MEDS ORDERED: ONDANSETRON 4 MG/2 ML VIAL IVP STA (14:36)
--- NOTE | 2021-10-07 14:40 | XRAY Report ---
PROCEDURE: Chest 1 View X-Ray INDICATIONS: chest pain TECHNIQUE: One view of the chest was acquired. COMPARISON: 01/04/2021. FINDINGS: Surgical changes and devices: None. Lungs and pleura: No pleural effusions or pneumothorax. Patchy opacities noted in the lungs bilatera lly. Mediastinum: Mediastinal contours appear normal. Heart is mildly enlarged Bones and chest wall: No suspicious bony lesions. Overlying soft tissues appear unremarkable. IMPRESSION: Bilateral patchy airspace opacities which could represent multifocal pneumonia or pulmonary edema. Reviewed by: Lucille Peraza MD, PhD on 10/07/2021 2:39 PM PDT Approved by: Lucille Peraza MD, PhD on 10/07/2021 2:39 PM PDT Station ID: [id number]
[2021-10-07 14:46] LABS: BASOPHILS % (AUTO) 0.2 %; EOSINOPHILS % (AUTO) 0.7 %; HCT - HEMATOCRIT 27.2 % (42.0-52.0); HGB - HEMOGLOBIN 9.2 g/dL (14.0-18.0); LYMPHOCYTES # (AUTO) 0.8 10^3/uL (1.5-3.5); MEAN CORPUSCULAR HEMOGLOBIN 34.3 pg (27.0-31.0); MEAN CORPUSCULAR HGB CONC 33.8 g/dL (32.0-36.0); MEAN CORPUSCULAR VOLUME 101.5 fL (80.0-94.0); MEAN PLATELET VOLUME 10.5 fL (7.4-11.4); MONOCYTES % (AUTO) 19.4 %; NEUTROPHILS # (AUTO) 3.5 10^3/uL (1.5-6.6); NEUTROPHILS % (AUTO) 64.4 %; PLT - PLATELET COUNT 121 10^3/uL (130-450); RED BLOOD COUNT 2.68 10^6/uL (4.70-6.10); WHITE BLOOD COUNT 5.4 x10^3/uL (4.8-10.8)
[2021-10-07 14:53] LABS: ALBUMIN/GLOBULIN RATIO 1.6 (1.0-2.2); BILIRUBIN,TOTAL 1.1 mg/dL (0.2-1.0); CALCIUM 8.7 mg/dL (8.5-10.3); CREATININE 1.6 mg/dL (0.6-1.2); POTASSIUM 3.6 mmol/L (3.5-5.0); TOTAL PROTEIN 6.5 g/dL (6.7-8.2)
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
[2021-10-07] MEDS ORDERED: SODIUM CHLORIDE 0.9% 1,000 ML IV STA (15:39)
[2021-10-07 15:43] LABS: BILIRUBIN,URINE NEGATIVE (NEGATIVE); GLUCOSE, URINE (UA) NEGATIVE (NEGATIVE); KETONES,URINE (UA) NEGATIVE (NEGATIVE); LEUKOCYTE ESTERASE, URINE NEGATIVE (NEGATIVE); NITRITE,URINE NEGATIVE (NEGATIVE); OCCULT BLOOD,URINE TRACE-INTA (NEGATIVE); PH,URINE 6.5 PH (5.0-7.5); PROTEIN,URINE TRACE mg/dL (NEGATIVE); UROBILINOGEN,URINE 0.2 (NORMAL) E.U./dL (NORMAL)
[2021-10-07 15:48] LABS: CLARITY,URINE CLEAR (CLEAR)
--- OUTSIDE RECORDS SUMMARY | 2021-10-07 16:47 | EXTERNAL MEDICAL SUMMARY RPT | Continuity of Care Document ---
:1945 Author Organization [facility] Address [address] [place] [address] Phone Allergies No information. Encounters No information. Functional Status No information. Immunizations No information. Medications date description facility [id number] celecoxib 100 MG Oral Capsule [facility] Problems No information. Procedures date description facility [id number] [facility] [id number] Diagnosis [facility] [id number] [facility] [id number] [facility] [id number] [facility] [id number] [facility] [id number] [facility] [id number] [facility] [id number] [facility] [id number] [facility] Results/Labs test date author facility value unit interpret ation Result panel 1 (unknown) (no (unknown) (unknown) (no value) (units (unk nown) date) unknown) (unknown) (no (unknown) (unknown) (no value) (units (unk nown) date) unknown) (unknown) (no (unknown) (unknown) [place], [place] (units ( unknown) date) [id number] unknown) (unknown) (no (unknown) (unknown) Draft (units (unkno wn) date) unknown) (unknown) (no (unknown) (unknown) Pain Visit (units (unk nown) date) unknown) (unknown) (no (unknown) (unknown) [facility] unknown) (unknown) (no (unknown) (unknown) (no value) (units (unk nown) date) unknown) (unknown) (no (unknown) (unknown) [phone] (units (unkn own) date) unknown) (unknown) (no (unknown) (unknown) 07/14/21 (units (unkno wn) date) unknown) (unknown) (no (unknown) (unknown) 03/03/21 [History (units (unknown) date) Confirmed unknown) 07/14/21] (unknown) (no (unknown) (unknown) Age/Sex: 75 / M (units (unknown) date) Date of Service: unknown) (unknown) (no (unknown) (unknown) Allergies (units (unkn own) date) unknown) (unknown) (no (unknown) (unknown) Attending Dr: (units ( unknown) date) Van Coon D.O. unknown) (unknown) (no (unknown) (unknown) Brother (units (unkno wn) date) Diabetes mellitus unknown) (unknown) (no (unknown) (unknown) Cervical stenosis (units (unknown) date) of spinal canal unknown) (unknown) (no (unknown) (unknown) Confirmed (units (unkn own) date) 05/11/21] unknown) (unknown) (no (unknown) (unknown) Confirmed (units (unkn own) date) 07/14/21] unknown) (unknown) (no (unknown) (unknown) : 1945 (units (unknown) date) Acct:[id number] unknown) (unknown) (no (unknown) (unknown) Dept at (units (unkno wn) date) . unknown) (unknown) (no (unknown) (unknown) Documented By: (units (unknown) date) Van Coon D.O. unknown) 07/14/21 1414 (unknown) (no (unknown) (unknown) Family History (units (unknown) date) (Reviewed 03/03/21 unknown) @ 10:37 by Van Coon DO) (unknown) (no (unknown) (unknown) Father Cancer (units (unknown) date) unknown) (unknown) (no (unknown) (unknown) H/O thumb surgery (units (unknown) date) unknown) (unknown) (no (unknown) (unknown) History of back (units (unknown) date) surgery unknown) (unknown) (no (unknown) (unknown) History of (units (unk nown) date) cholecystectomy unknown) (unknown) (no (unknown) (unknown) Intake (units (unkno wn) date) unknown) (unknown) (no (unknown) (unknown) Loc: PAIN (units (unkn own) date) unknown) (unknown) (no (unknown) (unknown) Lumbar stenosis (units (unknown) date) unknown) (unknown) (no (unknown) (unknown) Medical History (units (unknown) date) (Reviewed 03/03/21 unknown) @ 10:37 by Van Coon DO) (unknown) (no (unknown) (unknown) Medications (units (un known) date) unknown) (unknown) (no (unknown) (unknown) Melanoma (units (unkno wn) date) unknown) (unknown) (no (unknown) (unknown) Mother (units (unkno wn) date) Congestive heart unknown) failure (unknown) (no (unknown) (unknown) Multiple myeloma (units (unknown) date) unknown) (unknown) (no (unknown) (unknown) No Known Drug (units ( unknown) date) Allergies Allergy unknown) (Verified 07/14/21 14:14) (unknown) (no (unknown) (unknown) PFSH (units (unkno wn) date) unknown) (unknown) (no (unknown) (unknown) Patient: (units (unkno wn) date) Rui Delvalle Alonso unknown) MR#: M (unknown) (no (unknown) (unknown) Reason For Visit (units (unknown) date) unknown) (unknown) (no (unknown) (unknown) Shoulder (units (unkno wn) date) arthritis unknown) (unknown) (no (unknown) (unknown) Signed By: (units (unk nown) date) unknown) (unknown) (no (unknown) (unknown) Surgical History (units (unknown) date) (Reviewed 03/03/21 unknown) @ 10:37 by Van Coon DO) (unknown) (no (unknown) (unknown) This note may (units ( unknown) date) have been all or unknown) partially generated using voice recognition (unknown) (no (unknown) (unknown) Visit Reasons: (units (unknown) date) Follow Up L Spine unknown) ANASTASIYA, POST LUMBAR INJECTION (unknown) (no (unknown) (unknown) [History (units (unkno wn) date) Confirmed unknown) 07/14/21] (unknown) (no (unknown) (unknown) acetaminophen 500 (units (unknown) date) mg tablet (Tylenol unknown) Extra Strength) 500 mg PO Q6H 03/03/21 (unknown) (no (unknown) (unknown) acyclovir 400 mg (units (unknown) date) tablet 400 mg PO unknown) BID 03/03/21 [History Confirmed 07/14/21] (unknown) (no (unknown) (unknown) aspirin 81 mg (units ( unknown) date) tablet,delayed unknown) release (Adult Low Dose Aspirin) 81 mg PO DAILY (unknown) (no (unknown) (unknown) calcium carbonate (units (unknown) date) 200 mg calcium unknown) (500 mg) chewable tablet (Calcium Antacid) 200 (unknown) (no (unknown) (unknown) celecoxib 100 mg (units (unknown) date) capsule (Celebrex) unknown) 100 mg PO DAILY #90 cap 04/05/21 [Rx (unknown) (no (unknown) (unknown) cholecalciferol (units (unknown) date) (vitamin D3) 10 unknown) mcg (400 unit) capsule 10 mcg PO DAILY 03/03/21 (unknown) (no (unknown) (unknown) dexamethasone 4 (units (unknown) date) mg tablet 4 mg PO unknown) DAILY 03/03/21 [History Confirmed 07/14/21] (unknown) (no (unknown) (unknown) have occurred. (units (unknown) date) If there are any unknown) questions, please contact the Medical Records (unknown) (no (unknown) (unknown) hydrocodone 5 (units ( unknown) date) mg-acetaminophen unknown) 325 mg tablet 1 tab PO Q6H PRN 03/03/21 [History (unknown) (no (unknown) (unknown) lenalidomide 20 (units (unknown) date) mg capsule 20 mg unknown) PO DAILY 03/03/21 [History Confirmed 07/14/21] (unknown) (no (unknown) (unknown) losartan 50 mg (units (unknown) date) tablet 50 mg PO unknown) DAILY 03/03/21 [History Confirmed 07/14/21] (unknown) (no (unknown) (unknown) may occur. (units (unk nown) date) Occasional unknown) wrong-word or 'sound-alike' substitutions may have (unknown) (no (unknown) (unknown) mg PO BID (units (unkn own) date) 03/03/21 [History unknown) Confirmed 07/14/21] (unknown) (no (unknown) (unknown) nifedipine 30 mg (units (unknown) date) tablet,extended unknown) release 30 mg PO DAILY 03/03/21 [History (unknown) (no (unknown) (unknown) occurred due to (units (unknown) date) the inherent unknown) limitations of voice recognition software. Please (unknown) (no (unknown) (unknown) read the note (units ( unknown) date) carefully and unknown) recognize, using context, where these substitutions (unknown) (no (unknown) (unknown) software. (units (unkn own) date) Although every unknown) effort is made to edit content, transportation planner errors (unknown) (no (unknown) (unknown) tamsulosin 0.4 mg (units (unknown) date) capsule (Flomax) unknown) 0.4 mg PO BEDTIME #0 06/02/17 [History Result panel 2 (unknown) (no (unknown) (unknown) (no value) (units (unk nown) date) unknown) (unknown) (no (unknown) (unknown) (no value) (units (unk nown) date) unknown) (unknown) (no (unknown) (unknown) (no value) (units (unk nown) date) unknown) (unknown) (no (unknown) (unknown) 07/14/21 (units (unkno wn) date) unknown) (unknown) (no (unknown) (unknown) 14:28 (units (unkno wn) date) unknown) (unknown) (no (unknown) (unknown) [place], [place] (units ( unknown) date) [id number] unknown) (unknown) (no (unknown) (unknown) Draft (units (unkno wn) date) unknown) (unknown) (no (unknown) (unknown) Pain Visit (units (unk nown) date) unknown) (unknown) (no (unknown) (unknown) [facility] unknown) (unknown) (no (unknown) (unknown) (no value) (units (unk nown) date) unknown) (unknown) (no (unknown) (unknown) [id number] (units (unkn own) date) unknown) (unknown) (no (unknown) (unknown) 07/14/21 (units (unkno wn) date) unknown) (unknown) (no (unknown) (unknown) 11/17/21 [History (units (unknown) date) Confirmed unknown) 07/14/21] (unknown) (no (unknown) (unknown) Accompanied by: (units (unknown) date) Self / Same As unknown) Patient (unknown) (no (unknown) (unknown) Age/Sex: 75 / M (units (unknown) date) Date of Service: unknown) (unknown) (no (unknown) (unknown) Allergies (units (unkn own) date) unknown) (unknown) (no (unknown) (unknown) Attending Dr: (units ( unknown) date) Van Coon D.O. unknown) (unknown) (no (unknown) (unknown) BMI 28.9 (units (un known) date) unknown) (unknown) (no (unknown) (unknown) BP 136/78 (units (u nknown) date) unknown) (unknown) (no (unknown) (unknown) Blood Pressure (units (unknown) date) Location Lt unknown) brachial (unknown) (no (unknown) (unknown) Brother (units (unkno wn) date) Diabetes mellitus unknown) (unknown) (no (unknown) (unknown) Cervical stenosis (units (unknown) date) of spinal canal unknown) (unknown) (no (unknown) (unknown) Confirmed (units (unkn own) date) 07/14/21] unknown) (unknown) (no (unknown) (unknown) : 1945 (units (unknown) date) Acct:[id number] unknown) (unknown) (no (unknown) (unknown) Dept at (units (unkno wn) date) . unknown) (unknown) (no (unknown) (unknown) Documented By: (units (unknown) date) Van Coon D.O. unknown) 07/14/21 1414 (unknown) (no (unknown) (unknown) Family History (units (unknown) date) (Reviewed 03/03/21 unknown) @ 10:37 by Van Coon DO) (unknown) (no (unknown) (unknown) Father Cancer (units (unknown) date) unknown) (unknown) (no (unknown) (unknown) H/O thumb surgery (units (unknown) date) unknown) (unknown) (no (unknown) (unknown) HERE FOR POST (units ( unknown) date) LUMBAR INJECTION unknown) (unknown) (no (unknown) (unknown) Height 6 ft 2 (units (unknown) date) in unknown) (unknown) (no (unknown) (unknown) History of back (units (unknown) date) surgery unknown) (unknown) (no (unknown) (unknown) History of (units (unk nown) date) cholecystectomy unknown) (unknown) (no (unknown) (unknown) Intake (units (unkno wn) date) unknown) (unknown) (no (unknown) (unknown) Intake Note: (units (u nknown) date) unknown) (unknown) (no (unknown) (unknown) Is patient in (units ( unknown) date) pain?: Yes (HERE unknown) FOR POST LUMBAR INJECTION) Pain scale (1-10): 7 (unknown) (no (unknown) (unknown) Loc: PAIN (units (unkn own) date) unknown) (unknown) (no (unknown) (unknown) Lumbar stenosis (units (unknown) date) unknown) (unknown) (no (unknown) (unknown) Medical History (units (unknown) date) (Reviewed 03/03/21 unknown) @ 10:37 by Van Coon DO) (unknown) (no (unknown) (unknown) Medications (units (un known) date) unknown) (unknown) (no (unknown) (unknown) Melanoma (units (unkno wn) date) unknown) (unknown) (no (unknown) (unknown) Mother (units (unkno wn) date) Congestive heart unknown) failure (unknown) (no (unknown) (unknown) Multiple myeloma (units (unknown) date) unknown) (unknown) (no (unknown) (unknown) No Known Drug (units ( unknown) date) Allergies Allergy unknown) (Verified 07/14/21 14:27) (unknown) (no (unknown) (unknown) Oxygen Delivery (units (unknown) date) Method room air unknown) (unknown) (no (unknown) (unknown) PFSH (units (unkno wn) date) unknown) (unknown) (no (unknown) (unknown) Pain Scale (units (unk nown) date) unknown) (unknown) (no (unknown) (unknown) Patient: (units (unkno wn) date) Rui Delvalle unknown) MR#: M (unknown) (no (unknown) (unknown) Position (units (unkno wn) date) Sitting unknown) (unknown) (no (unknown) (unknown) Pulse 83 (units (un known) date) unknown) (unknown) (no (unknown) (unknown) Pulse Oximetry (units (unknown) date) (%) 98 unknown) (unknown) (no (unknown) (unknown) Pulse Source (units (u nknown) date) Monitor unknown) (unknown) (no (unknown) (unknown) Reason For Visit (units (unknown) date) unknown) (unknown) (no (unknown) (unknown) Shoulder (units (unkno wn) date) arthritis unknown) (unknown) (no (unknown) (unknown) Signed By: (units (unk nown) date) unknown) (unknown) (no (unknown) (unknown) Surgical History (units (unknown) date) (Reviewed 03/03/21 unknown) @ 10:37 by Van Coon DO) (unknown) (no (unknown) (unknown) Temp 98.7 F (units (unknown) date) unknown) (unknown) (no (unknown) (unknown) Temp Source (units (un known) date) Temporal Artery unknown) Scan (unknown) (no (unknown) (unknown) This note may (units ( unknown) date) have been all or unknown) partially generated using voice recognition (unknown) (no (unknown) (unknown) Visit Reasons: (units (unknown) date) Follow Up L Spine unknown) ANASTASIYA, POST LUMBAR INJECTION (unknown) (no (unknown) (unknown) Vitals (units (unkno wn) date) unknown) (unknown) (no (unknown) (unknown) Weight 225 lb (units (unknown) date) 6 oz unknown) (unknown) (no (unknown) (unknown) [History (units (unkno wn) date) Confirmed unknown) 07/14/21] (unknown) (no (unknown) (unknown) acetaminophen 500 (units (unknown) date) mg tablet (Tylenol unknown) Extra Strength) 500 mg PO Q6H 03/03/21 (unknown) (no (unknown) (unknown) acyclovir 400 mg (units (unknown) date) tablet 400 mg PO unknown) BID 03/03/21 [History Confirmed 07/14/21] (unknown) (no (unknown) (unknown) aspirin 81 mg (units ( unknown) date) tablet,delayed unknown) release (Adult Low Dose Aspirin) 81 mg PO DAILY (unknown) (no (unknown) (unknown) calcium carbonate (units (unknown) date) 200 mg calcium unknown) (500 mg) chewable tablet (Calcium Antacid) 200 (unknown) (no (unknown) (unknown) celecoxib 100 mg (units (unknown) date) capsule (Celebrex) unknown) 100 mg PO DAILY #90 cap 04/05/21 [Rx (unknown) (no (unknown) (unknown) cholecalciferol (units (unknown) date) (vitamin D3) 10 unknown) mcg (400 unit) capsule 10 mcg PO DAILY 03/03/21 (unknown) (no (unknown) (unknown) dexamethasone 4 (units (unknown) date) mg tablet 4 mg PO unknown) DAILY 03/03/21 [History Confirmed 07/14/21] (unknown) (no (unknown) (unknown) have occurred. (units (unknown) date) If there are any unknown) questions, please contact the Medical Records (unknown) (no (unknown) (unknown) hydrocodone 5 (units ( unknown) date) mg-acetaminophen unknown) 325 mg tablet 1 tab PO Q6H PRN 03/03/21 [History (unknown) (no (unknown) (unknown) lenalidomide 20 (units (unknown) date) mg capsule 20 mg unknown) PO DAILY 03/03/21 [History Confirmed 07/14/21] (unknown) (no (unknown) (unknown) losartan 50 mg (units (unknown) date) tablet 50 mg PO unknown) DAILY 03/03/21 [History Confirmed 07/14/21] (unknown) (no (unknown) (unknown) may occur. (units (unk nown) date) Occasional unknown) wrong-word or 'sound-alike' substitutions may have (unknown) (no (unknown) (unknown) mg PO BID (units (unkn own) date) 03/03/21 [History unknown) Confirmed 07/14/21] (unknown) (no (unknown) (unknown) nifedipine 30 mg (units (unknown) date) tablet,extended unknown) release 30 mg PO DAILY 03/03/21 [History (unknown) (no (unknown) (unknown) occurred due to (units (unknown) date) the inherent unknown) limitations of voice recognition software. Please (unknown) (no (unknown) (unknown) read the note (units ( unknown) date) carefully and unknown) recognize, using context, where these substitutions (unknown) (no (unknown) (unknown) software. (units (unkn own) date) Although every unknown) effort is made to edit content, transportation planner errors (unknown) (no (unknown) (unknown) tamsulosin 0.4 mg (units (unknown) date) capsule (Flomax) unknown) 0.4 mg PO BEDTIME #0 06/02/17 [History Result panel 3 (unknown) (no (unknown) (unknown) (no value) (units (unk nown) date) unknown) (unknown) (no (unknown) (unknown) Qualifiers: (units (un known) date) unknown) (unknown) (no (unknown) (unknown) Status: Acute (units ( unknown) date) unknown) (unknown) (no (unknown) (unknown) (no value) (units (unk nown) date) unknown) (unknown) (no (unknown) (unknown) (no value) (units (unk nown) date) unknown) (unknown) (no (unknown) (unknown) 07/14/21 (units (unkno wn) date) unknown) (unknown) (no (unknown) (unknown) 07/14/21 1505 (units ( unknown) date) unknown) (unknown) (no (unknown) (unknown) 14:28 (units (unkno wn) date) unknown) (unknown) (no (unknown) (unknown) [place] [address] (unit s (unknown) date) unknown) (unknown) (no (unknown) (unknown) Multiple myeloma (units (unknown) date) remission status: unknown) not in remission Qualified Code(s): (unknown) (no (unknown) (unknown) Neurogenic (units (unk nown) date) claudication status: unknown) without neurogenic claudication (unknown) (no (unknown) (unknown) Pain Visit (units (unk nown) date) unknown) (unknown) (no (unknown) (unknown) Signed (units (unkno wn) date) unknown) (unknown) (no (unknown) (unknown) [facility] (unit s (unknown) date) Management unknown) (unknown) (no (unknown) (unknown) (no value) (units (unk nown) date) unknown) (unknown) (no (unknown) (unknown) (no value) (units (unk nown) date) unknown) (unknown) (no (unknown) (unknown) (1) Cervical (units (u nknown) date) stenosis of spinal unknown) canal: (unknown) (no (unknown) (unknown) (2) Lumbar (units (unk nown) date) stenosis: unknown) (unknown) (no (unknown) (unknown) (3) Multiple (units (u nknown) date) myeloma: unknown) (unknown) (no (unknown) (unknown) (4) 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 Both sclerotic (units (unknown) date) and lucent regions unknown) noted throughout the visualized clavicle, (unknown) (no (unknown) (unknown) 1.?Extensive?osseou (unit s (unknown) date) s?metastatic?disease unknown) . (unknown) (no (unknown) (unknown) 03/03/21 [History (units (unknown) date) Confirmed 07/14/21] unknown) (unknown) (no (unknown) (unknown) 15:13 (units (unkno wn) date) unknown) (unknown) (no (unknown) (unknown) 2. 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 (unknown) (no (unknown) (unknown) 2.?No?pathologic?ve (unit s (unknown) date) rtebral?body?tevin unknown) capo?fracture. 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 unknown) (unknown) (no (unknown) (unknown) 6.?No?significant?c (unit s (unknown) date) entral?canal?narrowi unknown) ng.?? (unknown) (no (unknown) (unknown) 7.?No?significant?n (unit s (unknown) date) eural?foraminal?narr unknown) owing. (unknown) (no (unknown) (unknown) 8.?No?neural?compre (unit s (unknown) date) ssion.?? unknown) (unknown) (no (unknown) (unknown) :?Lucille?D.?Cambr (unit s (unknown) date) on,?MD,?PhD?on?03/10 unknown) /2019?at?15:35 (unknown) (no (unknown) (unknown) ??Loss?of?disc?signa (unit s (unknown) date) l.??Mild,?diffuse?di unknown) sc?bulge.??Mild?bila teral?facet?hypertro (unknown) (no (unknown) (unknown) ??Loss?of?disc?signa (unit s (unknown) date) l.??Mild,?diffuse?di unknown) sc?bulge.??No?centra l?stenosis.??No?neur (unknown) (no (unknown) (unknown) ??Loss?of?disc?signa (unit s (unknown) date) l.?Mild,?diffuse?dis unknown) c?bulge.??Mild?bilat eral?facet?hypertrop (unknown) (no (unknown) (unknown) ??Loss?of?disc?signa (unit s (unknown) date) l?and?mild?loss?of?d unknown) isc?height.??Mild,?d iffuse?disc?bulge.?? (unknown) (no (unknown) (unknown) ??Moderate?loss?of?d (unit s (unknown) date) isc?height?is?seen.? unknown) ?Loss?of?disc?signal ?is?seen.??Mild?to?m (unknown) (no (unknown) (unknown) ?J.?[place],?M.D.?o (unit s (unknown) date) n?08/08/2019?at?14:58 unknown) ?? (unknown) (no (unknown) (unknown) Accompanied by: (units (unknown) date) Self / Same As unknown) Patient (unknown) (no (unknown) (unknown) Age/Sex: 75 / M (units (unknown) date) Date of Service: unknown) (unknown) (no (unknown) (unknown) All other systems (units (unknown) date) reviewed and are unknown) negative except as noted in HPI. (unknown) (no (unknown) (unknown) Allergies (units (unkn own) date) unknown) (unknown) (no (unknown) (unknown) Approved by: Kishan (units (unknown) date) Lisa Melendez on unknown) 12/02/2020 at 15:30 (unknown) (no (unknown) (unknown) Approved by: Zev (units (unknown) date) Lisa Vizcaino on unknown) 12/02/2020 at 17:23 (unknown) (no (unknown) (unknown) Assessment + Plan (units (unknown) date) unknown) (unknown) (no (unknown) (unknown) At?L1,?there?is?an?e (unit s (unknown) date) xpansile?lesion?seen unknown) ?posteriorly?on?the? left,?which?causes?m (unknown) (no (unknown) (unknown) Attending Dr: (units ( unknown) date) Van Coon D.O. unknown) (unknown) (no (unknown) (unknown) BMI 28.9 (units (un known) date) unknown) (unknown) (no (unknown) (unknown) BP 136/78 (units (u nknown) date) unknown) (unknown) (no (unknown) (unknown) Blood Pressure (units (unknown) date) Location Lt unknown) brachial (unknown) (no (unknown) (unknown) Bones: No fractures (unit s (unknown) date) or dislocations to unknown) the C7-T1 level. Prominent anterior (unknown) (no (unknown) (unknown) Bones: No fractures (unit s (unknown) date) or dislocations. unknown) Both sclerotic and scattered lucent areas (unknown) (no (unknown) (unknown) Brother Diabetes (units (unknown) date) mellitus unknown) (unknown) (no (unknown) (unknown) C3-4: (units (unkno wn) date) unknown) (unknown) (no (unknown) (unknown) C3-C7, lumbar (units ( unknown) date) laminectomy L3-4 unknown) Mourning (unknown) (no (unknown) (unknown) C4-5: (units (unkno wn) date) unknown) (unknown) (no (unknown) (unknown) C5-6: (units (unkno wn) date) unknown) (unknown) (no (unknown) (unknown) C6-7: (units (unkno wn) date) unknown) (unknown) (no (unknown) (unknown) C7-T1:??Normal?appe (unit s (unknown) date) arance.?? unknown) (unknown) (no (unknown) (unknown) C7?anterior?large?fl (unit s (unknown) date) owing?and?bridging?o unknown) steophytes?compatibl e?with?diffuse?idiop (unknown) (no (unknown) (unknown) C90.00 - Multiple (units (unknown) date) myeloma not having unknown) achieved remission (unknown) (no (unknown) (unknown) COMPARISON: None. 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 (units (unknown) date) unknown) (unknown) (no (unknown) (unknown) Denies recent (units ( unknown) date) trauma, fever or unknown) weight loss of unknown origin, immunocompromise (unknown) (no (unknown) (unknown) Dept at (units (unkno wn) date) . unknown) (unknown) (no (unknown) (unknown) Details: (units (unkno wn) date) unknown) (unknown) (no (unknown) (unknown) Dictated by: Bairon (units (unknown) date) Zoë RRA unknown) Interpreted: Zev Vizcaino MD on 12/02/2020 at (unknown) (no (unknown) (unknown) Dictated by: Kishan (units (unknown) date) Lisa Melendez on unknown) 12/02/2020 at 15:28 (unknown) (no (unknown) (unknown) Documented By: (units (unknown) date) Van Coon D.O. unknown) 07/14/21 1414 (unknown) (no (unknown) (unknown) Endorses multiple (units (unknown) date) myeloma dx'd 1999, unknown) DISH, arthritic shoulders, cervical spine (unknown) (no (unknown) (unknown) Exam (units (unkno wn) date) unknown) (unknown) (no (unknown) (unknown) Exam Narrative (units (unknown) date) unknown) (unknown) (no (unknown) (unknown) Exam Narrative: (units (unknown) date) unknown) (unknown) (no (unknown) (unknown) FINDINGS: (units (unkn own) date) unknown) (unknown) (no (unknown) (unknown) Family History (units (unknown) date) (Reviewed 07/14/21 @ unknown) 15:01 by Van Coon DO) (unknown) (no (unknown) (unknown) Father Cancer (units (unknown) date) unknown) (unknown) (no (unknown) (unknown) Gait: Full (units (un known) date) weightbearing. No unknown) assistive device. Stooped Gait Posture due to (unknown) (no (unknown) (unknown) General: The (units ( unknown) date) patient is in no unknown) obvious distress. Normal affect. Fully (unknown) (no (unknown) (unknown) H/O thumb surgery (units (unknown) date) unknown) (unknown) (no (unknown) (unknown) HERE FOR POST (units ( unknown) date) LUMBAR INJECTION unknown) (unknown) (no (unknown) (unknown) HPI (units (unkno wn) date) unknown) (unknown) (no (unknown) (unknown) He does have (units (un known) date) significant active unknown) multiple myeloma involving his cervical spine as (unknown) (no (unknown) (unknown) He reports he is (units (unknown) date) currently under care unknown) for his multiple myeloma and has a follow- (unknown) (no (unknown) (unknown) Height 6 ft 2 in (unit s (unknown) date) unknown) (unknown) (no (unknown) (unknown) History of back (units (unknown) date) surgery unknown) (unknown) (no (unknown) (unknown) History of (units (unk nown) date) cholecystectomy unknown) (unknown) (no (unknown) (unknown) I will coordinate (units (unknown) date) all this care with unknown) 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 represent?multiple?m (unknown) (no (unknown) (unknown) INDICATIONS: NECK (units (unknown) date) PAIN unknown) (unknown) (no (unknown) (unknown) In summary present (units (unknown) date) for further unknown) evaluation treatment of multiple or joint (unknown) (no (unknown) (unknown) Informed consent was (unit s (unknown) date) obtained today unknown) without guarantees or assurances of complete (unknown) (no (unknown) (unknown) Intake (units (unkno wn) date) unknown) (unknown) (no (unknown) (unknown) Intake Note: (units (u nknown) date) unknown) (unknown) (no (unknown) (unknown) Is patient in (units ( unknown) date) pain?: Yes (HERE FOR unknown) POST LUMBAR INJECTION) Pain scale (1-10): 7 (unknown) (no (unknown) (unknown) L3 and L4 on the (units (unknown) date) right combined with unknown) his lumbar stenosis most prominent at the (unknown) (no (unknown) (unknown) L4-5 and 5 1 (units (u nknown) date) levels. unknown) (unknown) (no (unknown) (unknown) L5-S1: (units (unkno wn) date) unknown) (unknown) (no (unknown) (unknown) Left Lower (units (unk nown) date) Extremity: No unknown) edema, joint effusion or atrophy. 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 unknown) narrowing?of?the?[place]dal[place] tral?canal.??Mild?ri (unknown) (no (unknown) (unknown) Mother Congestive (unit s (unknown) date) heart failure unknown) (unknown) (no (unknown) (unknown) Multiple myeloma (units (unknown) date) unknown) (unknown) (no (unknown) (unknown) Multiple?levels?of? (unit s (unknown) date) degenerative?change? unknown) are?seen. (unknown) (no (unknown) (unknown) Neuro: System (units ( unknown) date) reviewed and no unknown) additional complaints, except as documented. (unknown) (no (unknown) (unknown) Neurologic: (units (unk nown) date) Sensation is grossly unknown) intact to light touch throughout the upper and (unknown) (no (unknown) (unknown) No Known Drug (units ( unknown) date) Allergies Allergy unknown) (Verified 07/14/21 14:27) (unknown) (no (unknown) (unknown) No?pathologic?fract (unit s (unknown) date) ures?can?be?seen?at? unknown) this?time. (unknown) (no (unknown) (unknown) Objective Data (units (unknown) date) unknown) (unknown) (no (unknown) (unknown) Objective Data: (units (unknown) date) unknown) (unknown) (no (unknown) (unknown) Oxygen Delivery (units (unknown) date) Method room air unknown) (unknown) (no (unknown) (unknown) PFSH (units (unkno wn) date) unknown) (unknown) (no (unknown) (unknown) PROCEDURE: XR (units ( unknown) date) CERVICAL SPINE 4V OR unknown) 5V (unknown) (no (unknown) (unknown) Pain Scale (units (unk nown) date) unknown) (unknown) (no (unknown) (unknown) Patient: (units (unkno wn) date) Rui Delvalle unknown) MR#: M (unknown) (no (unknown) (unknown) Plan (units (unkno wn) date) unknown) (unknown) (no (unknown) (unknown) Position Sitting (unit s (unknown) date) unknown) (unknown) (no (unknown) (unknown) Pulse 83 (units (un known) date) unknown) (unknown) (no (unknown) (unknown) Pulse Oximetry (%) (units (unknown) date) 98 unknown) (unknown) (no (unknown) (unknown) Pulse Source (units (u nknown) date) Monitor unknown) (unknown) (no (unknown) (unknown) Qualified Code(s): (units (unknown) date) M48.061 - Spinal unknown) stenosis, lumbar region without neurogenic (unknown) (no (unknown) (unknown) ROS (units (unkno wn) date) unknown) (unknown) (no (unknown) (unknown) ROS Narrative (units ( unknown) date) unknown) (unknown) (no (unknown) (unknown) ROS Narrative: (units (unknown) date) unknown) (unknown) (no (unknown) (unknown) Reason For Visit (units (unknown) date) unknown) (unknown) (no (unknown) (unknown) Remote?of?L3-L4?and (unit s (unknown) date) ?L4-L5?right?hemilam unknown) inectomy?change. (unknown) (no (unknown) (unknown) Reviewed?by:?Tomi?Alonso (unit s (unknown) date) .?Elizabeth,?MVonda.?on?4 unknown) ?at?14:49?Approved?by:?Tomi (unknown) (no (unknown) (unknown) Reviewed?by:?Dominga (unit s (unknown) date) e?D.?Stu,?,?Ph unknown) D?on?03/10/2020?at?1 4:46?Approved?by (unknown) (no (unknown) (unknown) Feng and I discussed (unit s (unknown) date) at length his unknown) underlying pathology which is quite complex.? (unknown) (no (unknown) (unknown) Feng presents today (units (unknown) date) status post L5-S1 unknown) translaminar ANASTASIYA performed 05/11/2021. He (unknown) (no (unknown) (unknown) Feng, performing (units (unknown) date) the medial branch unknown) blocks is justified by the following (unknown) (no (unknown) (unknown) Right Lower (units (un known) date) Extremity: No unknown) edema, effusion or atrophy. tenderness over the (unknown) (no (unknown) (unknown) Right Upper (units (un known) date) Extremity: Right unknown) upper extremity exam shows grossly normal (unknown) (no (unknown) (unknown) Shoulder arthritis (units (unknown) date) unknown) (unknown) (no (unknown) (unknown) Signed By: (units (unk nown) date) <Electronically unknown) signed by Van Coon D.O.> (unknown) (no (unknown) (unknown) Skin: No (units (unkn own) date) significant skin unknown) lesions are noted. (unknown) (no (unknown) (unknown) Soft tissues: No (units (unknown) date) prevertebral soft unknown) tissue swelling. (unknown) (no (unknown) (unknown) Soft tissues: No (units (unknown) date) suspicious soft unknown) tissue calcifications. (unknown) (no (unknown) (unknown) Spine: Cervical (units (unknown) date) spine ROM unknown) functional. Lumbar spine ROM was reduced in all (unknown) (no (unknown) (unknown) Surgical History (units (unknown) date) (Reviewed 07/14/21 @ unknown) 15:01 by Van Coon DO) (unknown) (no (unknown) (unknown) TECHNIQUE: 5 views (units (unknown) date) of the cervical unknown) spine acquired. (unknown) (no (unknown) (unknown) Temp 98.7 F (units (unknown) date) unknown) (unknown) (no (unknown) (unknown) Temp Source (units (un known) date) Temporal Artery Scan unknown) (unknown) (no (unknown) (unknown) This note may have (units (unknown) date) been all or unknown) partially generated using voice recognition (unknown) (no (unknown) (unknown) Time secondary to (units (unknown) date) the low back pain. unknown) Additionally he does report his (unknown) (no (unknown) (unknown) Transcribed by: (units (unknown) date) LUISANA on unknown) 12/02/2020 at 15:16 (unknown) (no (unknown) (unknown) Visit Reasons: (units (unknown) date) Follow Up L Spine unknown) ANASTASIYA, POST LUMBAR INJECTION (unknown) (no (unknown) (unknown) Vitals (units (unkno wn) date) unknown) (unknown) (no (unknown) (unknown) We did discuss (units (unknown) date) treatment options unknown) available to as he may have recurrence of the (unknown) (no (unknown) (unknown) We did review the (units (unknown) date) above-stated unknown) procedure at length and verbal consent was (unknown) (no (unknown) (unknown) Weight 225 lb 6 (units (unknown) date) oz unknown) (unknown) (no (unknown) (unknown) [History Confirmed (units (unknown) date) 07/14/21] unknown) (unknown) (no (unknown) (unknown) acetaminophen 500 (units (unknown) date) mg tablet (Tylenol unknown) Extra Strength) 500 mg PO Q6H 03/03/21 (unknown) (no (unknown) (unknown) acyclovir 400 mg (units (unknown) date) tablet 400 mg PO BID unknown) 03/03/21 [History Confirmed 07/14/21] (unknown) (no (unknown) (unknown) al?foraminal?narrow (unit s (unknown) date) ing.??No?neural?comp unknown) ression. (unknown) (no (unknown) (unknown) alignment, range of (unit s (unknown) date) motion, strength and unknown) stability with no swelling, atrophy or (unknown) (no (unknown) (unknown) and S1 medial (units ( unknown) date) branch rhizotomy in unknown) 2017 with good results.? 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 unknown) (unknown) (no (unknown) (unknown) axial LBP (units (unkn own) date) unknown) (unknown) (no (unknown) (unknown) ay occur. (units (unkn own) date) Occasional unknown) wrong-word or 'sound-alike' substitutions may have (unknown) (no (unknown) (unknown) bilateral facet (units (unknown) date) unknown) (unknown) (no (unknown) (unknown) bony foraminal (units (unknown) date) stenosis at C4-5 unknown) through C6-7 levels. No acute fracture or (unknown) (no (unknown) (unknown) bridging osteophyte (unit s (unknown) date) unknown) (unknown) (no (unknown) (unknown) bridging (units (unkno wn) date) osteophytes unknown) involving the AC joint as well as acromion causing clear (unknown) (no (unknown) (unknown) bridging (units (unkno wn) date) osteophytic unknown) complexes from C3 through C6 without history of previous (unknown) (no (unknown) (unknown) calcium carbonate (units (unknown) date) 200 mg calcium (500 unknown) mg) chewable tablet (Calcium Antacid) 200 (unknown) (no (unknown) (unknown) celecoxib 100 mg (units (unknown) date) capsule (Celebrex) unknown) 100 mg PO DAILY #90 cap 04/05/21 [Rx (unknown) (no (unknown) (unknown) characteristics (units (unknown) date) involves primarily unknown) axial pain in the absence of clear radicular (unknown) (no (unknown) (unknown) cholecalciferol (units (unknown) date) (vitamin D3) 10 mcg unknown) (400 unit) capsule 10 mcg PO DAILY 03/03/21 (unknown) (no (unknown) (unknown) claudication (units (u nknown) date) unknown) (unknown) (no (unknown) (unknown) complaints.? He is (units (unknown) date) well-known to me unknown) secondary is previous my previous practice (unknown) (no (unknown) (unknown) conservative (units (u nknown) date) treatment efforts unknown) for longer than 3 months; 3) the clinical (unknown) (no (unknown) (unknown) considerations. 1) (units (unknown) date) the patient has had unknown) a history of at least 3 months of (unknown) (no (unknown) (unknown) demonstrate (units (un known) date) bilateral bony unknown) (unknown) (no (unknown) (unknown) dexamethasone 4 mg (units (unknown) date) tablet 4 mg PO DAILY unknown) 03/03/21 [History Confirmed 07/14/21] (unknown) (no (unknown) (unknown) diagnostic medial (units (unknown) date) branch blocks of the unknown) facet joints bilateral L3-L4 and L5. For (unknown) (no (unknown) (unknown) disease. Moderate (units (unknown) date) acromioclavicular unknown) mild glenohumeral joint space narrowing with (unknown) (no (unknown) (unknown) dislocation. (units (u nknown) date) unknown) (unknown) (no (unknown) (unknown) effusion. (units (unkn own) date) unknown) (unknown) (no (unknown) (unknown) facet mediated (units (unknown) date) interventions based unknown) upon his response with the recent L5-S1 (unknown) (no (unknown) (unknown) foraminal stenosis (units (unknown) date) at C4-5, C5-6 and unknown) C6-7 levels. (unknown) (no (unknown) (unknown) formation at C3 (units (unknown) date) through C6 levels unknown) are seen. Degenerative endplate changes and (unknown) (no (unknown) (unknown) from his axial low (units (unknown) date) back pain as well as unknown) lower extremity symptoms. He reports (unknown) (no (unknown) (unknown) function, we would (units (unknown) date) conclude that the unknown) tested joints are likely the relevant (unknown) (no (unknown) (unknown) ght?and?moderate?le (unit s (unknown) date) ft?neural?foraminal? unknown) narrowing.??No?neura l?compression. (unknown) (no (unknown) (unknown) greater (units (unkno wn) date) trochanteric region unknown) (unknown) (no (unknown) (unknown) greater (units (unkno wn) date) trochanteric region. unknown) (unknown) (no (unknown) (unknown) have occurred. If (units (unknown) date) there are any unknown) questions, please contact the Medical Records (unknown) (no (unknown) (unknown) his primary (units (un known) date) complaint at this unknown) time is both his cervical spine as well as his (unknown) (no (unknown) (unknown) his underlying renal (unit s (unknown) date) insufficiency given unknown) his underlying multiple myeloma and the (unknown) (no (unknown) (unknown) history of multiple (unit s (unknown) date) myeloma. unknown) (unknown) (no (unknown) (unknown) hy.??Mild?narrowing? (unit s (unknown) date) of?the?central?canal unknown) .??Mild?right?and?mo derate?left?neural?f (unknown) (no (unknown) (unknown) hydrocodone 5 (units ( unknown) date) mg-acetaminophen 325 unknown) mg tablet 1 tab PO Q6H PRN 03/03/21 [History (unknown) (no (unknown) (unknown) hydrocodone is (units ( unknown) date) beneficial for but unknown) unfortunately is unable take this secondary to (unknown) (no (unknown) (unknown) hypertrophic (units (u nknown) date) changes are noted unknown) throughout cervical spine. Oblique images (unknown) (no (unknown) (unknown) ild?to?moderate?[place]dal[place] (unit s (unknown) date) tral?canal?narrowing unknown) . (unknown) (no (unknown) (unknown) impingement.? This (units (unknown) date) is further unknown) complicated by his lumbar previous laminectomy at (unknown) (no (unknown) (unknown) increased tenderness (unit s (unknown) date) with axial loading unknown) and extension based maneuvers tenderness (unknown) (no (unknown) (unknown) indicated. (units (unk nown) date) unknown) (unknown) (no (unknown) (unknown) injury, stroke, (units (unknown) date) paralysis and unknown) and the patient elected to proceed. (unknown) (no (unknown) (unknown) intravenous drug (units (unknown) date) use, sustained unknown) glucocorticoid use, osteoporosis, or a focal (unknown) (no (unknown) (unknown) is?moderate?right-si (unit s (unknown) date) ded?and?mild?left-si unknown) ded?neural?foraminal ?narrowing?seen.??Mi (unknown) (no (unknown) (unknown) laminectomy at L3-4 (unit s (unknown) date) as well.? Since our unknown) last evaluation he has been diagnosed (unknown) (no (unknown) (unknown) lenalidomide 20 mg (units (unknown) date) capsule 20 mg PO unknown) DAILY 03/03/21 [History Confirmed 07/14/21] (unknown) (no (unknown) (unknown) losartan 50 mg (units (unknown) date) tablet 50 mg PO unknown) DAILY 03/03/21 [History Confirmed 07/14/21] (unknown) (no (unknown) (unknown) lower extremities. (units (unknown) date) motor 5/5 all LE unknown) muscle groups. Coordination appears normal. (unknown) (no (unknown) (unknown) lumbar ANASTASIYA (units (unk nown) date) performed unknown) 05/11/2021. Following insurance approval. I will perform (unknown) (no (unknown) (unknown) lumbar spine axial (units (unknown) date) pain. He reports he unknown) cannot stand or walk any sick stent. (unknown) (no (unknown) (unknown) medial branches at (units (unknown) date) the L3, L4 and L5 unknown) bilaterally levels and we may institute (unknown) (no (unknown) (unknown) metastatic (units (unk nown) date) unknown) (unknown) (no (unknown) (unknown) mg PO BID 03/03/21 (units (unknown) date) [History Confirmed unknown) 07/14/21] (unknown) (no (unknown) (unknown) moderate to sever (units (unknown) date) pain with functional unknown) impairment; 2) they did not respond to (unknown) (no (unknown) (unknown) moderate?facet?hype (unit s (unknown) date) rtrophy?seen.??There unknown) ? (unknown) (no (unknown) (unknown) neurological (units (u nknown) date) deficit with unknown) progressive or disabling symptoms. (unknown) (no (unknown) (unknown) nifedipine 30 mg (units (unknown) date) tablet,extended unknown) release 30 mg PO DAILY 03/03/21 [History (unknown) (no (unknown) (unknown) nimal?central?canal (unit s (unknown) date) ?narrowing?is?seen. unknown) (unknown) (no (unknown) (unknown) noted (units (unkno wn) date) unknown) (unknown) (no (unknown) (unknown) now over the past (units (unknown) date) year and has had unknown) lots of life changes.? (unknown) (no (unknown) (unknown) obtained today, As (units (unknown) date) oral consent, we did unknown) review the risks of the above stated (unknown) (no (unknown) (unknown) occurred due to the (unit s (unknown) date) inherent limitations unknown) of voice recognition software. Please (unknown) (no (unknown) (unknown) oderate?disc?bulge?i (unit s (unknown) date) s?seen,?which?is?ecc unknown) entric?to?the?right. ??There?is?at?least? (unknown) (no (unknown) (unknown) of bilateral (units (u nknown) date) unknown) (unknown) (no (unknown) (unknown) or (units (unkno wn) date) immunosuppressive unknown) therapy, previous or current cancer diagnosis, history of (unknown) (no (unknown) (unknown) oraminal?narrowing. (unit s (unknown) date) ??No?neural?compress unknown) ion. (unknown) (no (unknown) (unknown) oriented. (units (unkn own) date) unknown) (unknown) (no (unknown) (unknown) osteophyte (units (unk nown) date) formation.. unknown) Visualized ribs appear intact. (unknown) (no (unknown) (unknown) other new changes (units (unknown) date) to his medications. unknown) (unknown) (no (unknown) (unknown) periarticular (units ( unknown) date) unknown) (unknown) (no (unknown) (unknown) phy.??Mild?bilatera (unit s (unknown) date) l?neural?foraminal?n unknown) arrowing.??No?neural ?compression. (unknown) (no (unknown) (unknown) planes. On (units (unk nown) date) palpation, there is unknown) tenderness over the spinous processes. With (unknown) (no (unknown) (unknown) procedure including (units (unknown) date) not limited to unknown) bleeding, infection, allergic reaction, nerve (unknown) (no (unknown) (unknown) protein low to the (units (unknown) date) kidney. He reports unknown) no new traumas or illnesses reports no (unknown) (no (unknown) (unknown) provided (units (unkno wn) date) substantial pain unknown) relief, radiofrequency ablation may be indicated. If (unknown) (no (unknown) (unknown) provocative (units (unk nown) date) maneuvers including unknown) sacra shear test as well as pelvic obliquity are (unknown) (no (unknown) (unknown) range of motion (units (unknown) date) bilateral shoulder unknown) range of motion as well as low back pain.? He (unknown) (no (unknown) (unknown) range of motion, (units (unknown) date) strength and unknown) stability with no swelling, atrophy or effusion. (unknown) (no (unknown) (unknown) read the note (units ( unknown) date) carefully and unknown) recognize, using context, where these substitutions (unknown) (no (unknown) (unknown) relief applied. (units (unknown) date) Will complete unknown) written consent on the day of the procedure. (unknown) (no (unknown) (unknown) reports no (units (unk nown) date) difficulty with the unknown) procedure itself does report prominent relief (unknown) (no (unknown) (unknown) reports not using (units (unknown) date) any current unknown) medications for this and having previous physical (unknown) (no (unknown) (unknown) scapula (units (unkno wn) date) unknown) (unknown) (no (unknown) (unknown) social restrictions (units (unknown) date) without cough fever unknown) fatigue at this time.? He has been fully (unknown) (no (unknown) (unknown) software. Although (units (unknown) date) every effort is made unknown) to edit content, transportation planner errors m (unknown) (no (unknown) (unknown) source of pain. (units (unknown) date) Thus meeting the unknown) above criteria, radiofrequency ablation may be (unknown) (no (unknown) (unknown) substantial pain (units (unknown) date) relief, particularly unknown) if accompanied by improvement in ROM and (unknown) (no (unknown) (unknown) symptoms or other (units (unknown) date) neurologic unknown) components; and 4) the imaging does not suggest (unknown) (no (unknown) (unknown) tamsulosin 0.4 mg (units (unknown) date) capsule (Flomax) 0.4 unknown) mg PO BEDTIME #0 06/02/17 [History (unknown) (no (unknown) (unknown) that there is clear (unit s (unknown) date) coordination of his unknown) care regarding his multiple myeloma so (unknown) (no (unknown) (unknown) that we may improve (unit s (unknown) date) his quality of life unknown) and remain active. (unknown) (no (unknown) (unknown) therapies for this (units (unknown) date) without significant unknown) benefit.? He also reports he is (unknown) (no (unknown) (unknown) throughout the (units (unknown) date) clavicle, scapula unknown) and the proximal humerus suspicious for bony (unknown) (no (unknown) (unknown) to palpation on (units (unknown) date) paraspinals.straight unknown) leg raising negative bilaterally. Sacral (unknown) (no (unknown) (unknown) trauma.? (units (unkno wn) date) Additionally his unknown) right shoulder and left shoulder do show significant (unknown) (no (unknown) (unknown) two diagnostic (units (unknown) date) medial branch blocks unknown) on two different occasions lead to (unknown) (no (unknown) (unknown) up visit next (units ( unknown) date) week.? He reports unknown) otherwise feeling well maintain the Covid19 (unknown) (no (unknown) (unknown) vaccinated. (units (un known) date) unknown) (unknown) (no (unknown) (unknown) well as his lumbar (units (unknown) date) spine.? Additionally unknown) his cervical spine associated large (unknown) (no (unknown) (unknown) with multiple (units ( unknown) date) myeloma in 2020.? He unknown) presents today for difficulties with neck (unknown) (no (unknown) (unknown) within normal (units ( unknown) date) limits. unknown) (unknown) (no (unknown) (unknown) yeloma?until?proven (unit s (unknown) date) ?otherwise,?particul unknown) abimael?given?the?prior ?imaging. Result panel 4 (unknown) (no (unknown) (unknown) (no value) (units (unk nown) date) unknown) (unknown) (no (unknown) (unknown) (no value) (units (unk nown) date) unknown) (unknown) (no (unknown) (unknown) [place] (units ( unknown) date) [id number] unknown) (unknown) (no (unknown) (unknown) Draft (units (unkno wn) date) unknown) (unknown) (no (unknown) (unknown) Nurse Office (units (u nknown) date) Visit unknown) (unknown) (no (unknown) (unknown) [facility] unknown) (unknown) (no (unknown) (unknown) (no value) (units (unk nown) date) unknown) (unknown) (no (unknown) (unknown) COVID-19 (units (u nknown) date) unknown) (unknown) (no (unknown) (unknown) [phone] (units (unkn own) date) unknown) (unknown) (no (unknown) (unknown) 07/27/21 (units (unkno wn) date) unknown) (unknown) (no (unknown) (unknown) Accompanied by: (units (unknown) date) Self / Same As unknown) Patient (unknown) (no (unknown) (unknown) Age/Sex: 75 / M (units (unknown) date) Date of unknown) Service: (unknown) (no (unknown) (unknown) Allergies (units (unkn own) date) unknown) (unknown) (no (unknown) (unknown) Attending Dr: (units ( unknown) date) Van Coon unknown) D.OAdonay (unknown) (no (unknown) (unknown) : 1945 (units (unknown) date) Acct:[id number] unknown) (unknown) (no (unknown) (unknown) Dept at (units (unkno wn) date) . unknown) (unknown) (no (unknown) (unknown) Documented By: (units (unknown) date) Van Coon unknown) D.O. 07/27/21 1051 (unknown) (no (unknown) (unknown) Evaluation/Scree (units (unknown) date) reina for possible unknown) COVID-19 completed?: Yes- COVID-19 CPT (unknown) (no (unknown) (unknown) Intake (units (unkno wn) date) unknown) (unknown) (no (unknown) (unknown) Intake Note: (units (u nknown) date) unknown) (unknown) (no (unknown) (unknown) Loc: PAIN (units (unkn own) date) unknown) (unknown) (no (unknown) (unknown) No Known Drug (units ( unknown) date) Allergies Allergy unknown) (Verified 07/14/21 14:27) (unknown) (no (unknown) (unknown) Note (units (unkno wn) date) unknown) (unknown) (no (unknown) (unknown) PT TOLERATED (units (u nknown) date) COVID TEST WELL. unknown) TOLD HIM ONLY CALL IF POSITIVE (unknown) (no (unknown) (unknown) Patient: (units (unkno wn) date) Rui Delvalle unknown) MR#: M (unknown) (no (unknown) (unknown) Reason For Visit (units (unknown) date) unknown) (unknown) (no (unknown) (unknown) Signed By: (units (unk nown) date) unknown) (unknown) (no (unknown) (unknown) This note may (units ( unknown) date) have been all or unknown) partially generated using voice recognition (unknown) (no (unknown) (unknown) Visit Reasons: (units (unknown) date) Pre procedure , unknown) COVID TEST FOR PROCEDURE (unknown) (no (unknown) (unknown) have occurred. (units (unknown) date) If there are any unknown) questions, please contact the Medical Records (unknown) (no (unknown) (unknown) may occur. (units (unk nown) date) Occasional unknown) wrong-word or 'sound-alike' substitutions may have (unknown) (no (unknown) (unknown) occurred due to (units (unknown) date) the inherent unknown) limitations of voice recognition software. Please (unknown) (no (unknown) (unknown) read the note (units ( unknown) date) carefully and unknown) recognize, using context, where these substitutions (unknown) (no (unknown) (unknown) software. (units (unkn own) date) Although every unknown) effort is made to edit content, transportation planner errors Result panel 5 (unknown) (no date) (unknown) (unknown) Negative (units (unkn own) unknown) Result panel 6 (unknown) (no (unknown) (unknown) (no value) (units (unk nown) date) unknown) (unknown) (no (unknown) (unknown) (no value) (units (unk nown) date) unknown) (unknown) (no (unknown) (unknown) 07/27/21 1405 (units ( unknown) date) unknown) (unknown) (no (unknown) (unknown) [place], [place] (units ( unknown) date) [id number] unknown) (unknown) (no (unknown) (unknown) Nurse Office (units (u nknown) date) Visit unknown) (unknown) (no (unknown) (unknown) Signed (units (unkno wn) date) unknown) (unknown) (no (unknown) (unknown) [facility] ([facility] unknown) (unknown) (no (unknown) (unknown) (no value) (units (unk nown) date) unknown) (unknown) (no (unknown) (unknown) COVID-19 (units (u nknown) date) unknown) (unknown) (no (unknown) (unknown) [phone] (units (unkn own) date) unknown) (unknown) (no (unknown) (unknown) 07/27/21 (units (unkno wn) date) unknown) (unknown) (no (unknown) (unknown) Accompanied by: (units (unknown) date) Self / Same As unknown) Patient (unknown) (no (unknown) (unknown) Age/Sex: 75 / M (units (unknown) date) Date of unknown) Service: (unknown) (no (unknown) (unknown) Allergies (units (unkn own) date) unknown) (unknown) (no (unknown) (unknown) Attending Dr: (units ( unknown) date) Van Coon unknown) Destinee (unknown) (no (unknown) (unknown) : 1945 (units (unknown) date) Acct:[id number] unknown) (unknown) (no (unknown) (unknown) Dept at (units (unkno wn) date) . unknown) (unknown) (no (unknown) (unknown) Documented By: (units (unknown) date) Van Coon unknown) D.OAdonay 07/27/21 1051 (unknown) (no (unknown) (unknown) Evaluation/Scree (units (unknown) date) reina for possible unknown) COVID-19 completed?: Yes- COVID-19 CPT (unknown) (no (unknown) (unknown) Intake (units (unkno wn) date) unknown) (unknown) (no (unknown) (unknown) Intake Note: (units (u nknown) date) unknown) (unknown) (no (unknown) (unknown) Loc: PAIN (units (unkn own) date) unknown) (unknown) (no (unknown) (unknown) No Known Drug (units ( unknown) date) Allergies Allergy unknown) (Verified 07/14/21 14:27) (unknown) (no (unknown) (unknown) Note (units (unkno wn) date) unknown) (unknown) (no (unknown) (unknown) PT TOLERATED (units (u nknown) date) COVID TEST WELL. unknown) TOLD HIM ONLY CALL IF POSITIVE (unknown) (no (unknown) (unknown) Patient: (units (unkno wn) date) Rui Delvalle unknown) MR#: M (unknown) (no (unknown) (unknown) Reason For Visit (units (unknown) date) unknown) (unknown) (no (unknown) (unknown) Signed By: (units (unk nown) date) <Electronically unknown) signed by Van Coon D.O.> (unknown) (no (unknown) (unknown) This note may (units ( unknown) date) have been all or unknown) partially generated using voice recognition (unknown) (no (unknown) (unknown) Visit Reasons: (units (unknown) date) Pre procedure , unknown) COVID TEST FOR PROCEDURE (unknown) (no (unknown) (unknown) ay occur. (units (unkn own) date) Occasional unknown) wrong-word or 'sound-alike' substitutions may have (unknown) (no (unknown) (unknown) have occurred. (units (unknown) date) If there are any unknown) questions, please contact the Medical Records (unknown) (no (unknown) (unknown) occurred due to (units (unknown) date) the inherent unknown) limitations of voice recognition software. Please (unknown) (no (unknown) (unknown) read the note (units ( unknown) date) carefully and unknown) recognize, using context, where these substitutions (unknown) (no (unknown) (unknown) software. (units (unkn own) date) Although every unknown) effort is made to edit content, transportation planner errors m Result panel 7 (unknown) (no date) (unknown) (unknown) (no value) (units (un known) unknown) (unknown) (no date) (unknown) (unknown) [address] (units (unk nown) [address] unknown) (unknown) (no date) (unknown) (unknown) [place] (units (unknown) [id number] unknown) (unknown) (no date) (unknown) (unknown) [facility]) (unknown) (no date) (unknown) (unknown) Signed (units (unkn own) unknown) (unknown) (no date) (unknown) (unknown) XRay Report (units (u nknown) unknown) (unknown) (no date) (unknown) (unknown) (no value) (units (un known) unknown) (unknown) (no date) (unknown) (unknown) 07/29/21 (units (unkn own) unknown) (unknown) (no date) (unknown) (unknown) Approved by: (units ( unknown) shannon Velez) Lisa on 07/29/2021 at 16:58 (unknown) (no date) (unknown) (unknown) COMPARISON: (units (u nknown) None. unknown) (unknown) (no date) (unknown) (unknown) Dictated by: (units ( unknown) Lyla Gibson, shannon) Lisa on 07/29/2021 at 16:58 (unknown) (no date) (unknown) (unknown) FINDINGS: (units (unk nown) Needle unknown) placement at L3, L4, L5. (unknown) (no date) (unknown) (unknown) IMPRESSION: (units (u nknown) Needle unknown) placement as above. (unknown) (no date) (unknown) (unknown) INDICATIONS: (units ( unknown) SPONDYLOSIS unknown) (unknown) (no date) (unknown) (unknown) Accession (units (unk nown) Number: unknown) [id number] (unknown) (no date) (unknown) (unknown) Age/Sex: 75 / (units (unknown) M Date of unknown) Service: (unknown) (no date) (unknown) (unknown) : (units (unkn own) 1945 unknown) Acct:[id number] (unknown) (no date) (unknown) (unknown) Loc: RAD (units (unkn own) unknown) (unknown) (no date) (unknown) (unknown) [id number] (units (un known) unknown) (unknown) (no date) (unknown) (unknown) Ordering (units (unkn own) Provider: unknown) Van Coon D.O. (unknown) (no date) (unknown) (unknown) PROCEDURE: (units (un known) PAIN L/S FACET unknown) INJ/BLK 1ST DERIC (unknown) (no date) (unknown) (unknown) Patient: (units (unkn own) Rui Delvalle unknown) Alonso MR#: (unknown) (no date) (unknown) (unknown) Procedure: (units (un known) PAIN l/s facet unknown) inj/blk 1st deric Result panel 8 (unknown) (no (unknown) (unknown) (no value) (units (unk nown) date) unknown) (unknown) (no (unknown) (unknown) Date of Service: (units (unknown) date) 07/29/21 unknown) (unknown) (no (unknown) (unknown) [facility] (units (unknown) date) [address] unknown) [place] [address] (unknown) (no (unknown) (unknown) Procedure Note (units (unknown) date) unknown) (unknown) (no (unknown) (unknown) (no value) (units (unk nown) date) unknown) (unknown) (no (unknown) (unknown) [id number] (units (unkn own) date) unknown) (unknown) (no (unknown) (unknown) 1. BILATERAL L3, (units (unknown) date) L4 AND L5 unknown) DIAGNOSTIC MB BLOCKS (unknown) (no (unknown) (unknown) 200 was injected, (units (unknown) date) confirming unknown) placement without vascular or intrathecal uptake. (unknown) (no (unknown) (unknown) After review of (units (unknown) date) previous unknown) anaesthesic history and IV conscious sedation the (unknown) (no (unknown) (unknown) Age/Sex: 75 / M (units (unknown) date) unknown) (unknown) (no (unknown) (unknown) An informed (units (un known) date) consent document unknown) was signed by the patient, witnessed by a nurse, (unknown) (no (unknown) (unknown) Complications: (units (unknown) date) none unknown) (unknown) (no (unknown) (unknown) DESCRIPTION OF (units (unknown) date) PROCEDURE unknown) (unknown) (no (unknown) (unknown) : 1945 (units (unknown) date) Acct:[id number] unknown) (unknown) (no (unknown) (unknown) Date of procedure: (units (unknown) date) 07/29/21 unknown) (unknown) (no (unknown) (unknown) Date/Time/Diagnose (units (unknown) date) s unknown) (unknown) (no (unknown) (unknown) Fluoroscopically (units (unknown) date) guided, unknown) contrast-controlled bilateral L3, L4 and L5 medial (unknown) (no (unknown) (unknown) Following review (units (unknown) date) of allergy and unknown) review of potential side effects and (unknown) (no (unknown) (unknown) In the prone (units (u nknown) date) position, following unknown) sterile prep and drape of the lumbar region, (unknown) (no (unknown) (unknown) Indications: (units (u nknown) date) unknown) (unknown) (no (unknown) (unknown) It has been a (units ( unknown) date) pleasure to assist unknown) in the diagnostic and therapeutic care of your (unknown) (no (unknown) (unknown) POST OP (units (unkno wn) date) INSTRUCTIONS unknown) (unknown) (no (unknown) (unknown) Patient: (units (unkno wn) date) Rui Delvalle unknown) MR#: M (unknown) (no (unknown) (unknown) Physician: Van (units (unknown) date) Jaymie unknown) (unknown) (no (unknown) (unknown) Post-procedure (units (unknown) date) diagnosis: same unknown) (unknown) (no (unknown) (unknown) Post-procedure, (units (unknown) date) the patient was unknown) monitored initiating provocative activities to (unknown) (no (unknown) (unknown) Pre-procedure (units ( unknown) date) diagnosis: 1. unknown) FACET ARTHROPATHY (unknown) (no (unknown) (unknown) Procedure Notes (units (unknown) date) unknown) (unknown) (no (unknown) (unknown) Procedure in (units (u nknown) date) detail + unknown) Post-procedure care: (unknown) (no (unknown) (unknown) Procedure: (units (unk nown) date) unknown) (unknown) (no (unknown) (unknown) Provider: (units (unkn own) date) Van Coon D.O. unknown) (unknown) (no (unknown) (unknown) Rui is (units (k n) date) referred by Dr. Judge unknown) for treatment of Bilateral Axial LBP. (unknown) (no (unknown) (unknown) Signed (units (unkno wn) date) By:<Electronically unknown) signed by Van Coon D.O.>07/29/21 1054 (unknown) (no (unknown) (unknown) Subsequently then (units (unknown) date) 0.5cc of 0.5% unknown) Marcaine solution was injected at each of the (unknown) (no (unknown) (unknown) Subsequently then (units (unknown) date) a 22-gauge 3.5-inch unknown) spinal needle was atraumatically (unknown) (no (unknown) (unknown) The patient (units (un known) date) tolerated the unknown) procedure well without signs or symptoms of (unknown) (no (unknown) (unknown) The patient was (units (unknown) date) provided with a unknown) Pain Log to complete over the next several hours (unknown) (no (unknown) (unknown) Time of procedure: (units (unknown) date) 10:52 unknown) (unknown) (no (unknown) (unknown) Total Fluoroscopy (units (unknown) date) time (seconds): 12 unknown) (unknown) (no (unknown) (unknown) Total sedation (units (unknown) date) minutes: 16 unknown) (unknown) (no (unknown) (unknown) accomplished with (units (unknown) date) a combination of unknown) 3mg of Versed was administered by the RN (unknown) (no (unknown) (unknown) after DO order, (units (unknown) date) titrated to patient unknown) comfort during the course of the procedure (unknown) (no (unknown) (unknown) and placed in the (units (unknown) date) patient's chart. unknown) (unknown) (no (unknown) (unknown) and subsequent (units (unknown) date) days prior to the unknown) patient's follow up with the ordering (unknown) (no (unknown) (unknown) branch blocks with (units (unknown) date) 0.5cc of 0.5% unknown) Marcaine. (unknown) (no (unknown) (unknown) complications (units ( unknown) date) prior to transfer unknown) to the recovery area continued monitoring (unknown) (no (unknown) (unknown) complications, (units (unknown) date) including, but not unknown) necessarily limited to, infection, allergic (unknown) (no (unknown) (unknown) corresponding (units ( unknown) date) sites at the right unknown) L3, L4 and L5 medial branch locations. The (unknown) (no (unknown) (unknown) , the patient (units (unknown) date) indicated that the unknown) patient understood and agreed to proceed. (unknown) (no (unknown) (unknown) identical (units (unkn own) date) procedure was unknown) replicated on the left. The patient tolerated the (unknown) (no (unknown) (unknown) introduced and (units ( unknown) date) advanced under unknown) fluoroscopic guidance at each of the corresponding (unknown) (no (unknown) (unknown) measure the amount (units (unknown) date) of relief from unknown) block of the facetogenic pain. The patient (unknown) (no (unknown) (unknown) patient ID, (units (un known) date) procedure to be unknown) performed and site of procedure. IV sedation was (unknown) (no (unknown) (unknown) patient was deemed (units (unknown) date) safe to proceed unknown) with today's procedure with IV conscious (unknown) (no (unknown) (unknown) patient. (units (unkno wn) date) unknown) (unknown) (no (unknown) (unknown) physician for (units ( unknown) date) review and clinical unknown) correlation (unknown) (no (unknown) (unknown) physician. If the (units (unknown) date) patient has unknown) property developer relief to the solution applied, (unknown) (no (unknown) (unknown) procedure well (units (unknown) date) without signs or unknown) symptoms of complications. (unknown) (no (unknown) (unknown) ramus was (units (unkn own) date) identified unknown) fluoroscopically. Subsequently an anesthetic skin wheal (unknown) (no (unknown) (unknown) reaction, local (units (unknown) date) tissue breakdown, unknown) nerve injury, paralysis, stroke and possible (unknown) (no (unknown) (unknown) reported a VAS of (units (unknown) date) 7 prior to the unknown) procedure and a post-procedure VAS of 1. (unknown) (no (unknown) (unknown) sedation as ASA (units (unknown) date) class II unknown) designation. Safety time-out was performed to confirm (unknown) (no (unknown) (unknown) sites at the right (units (unknown) date) L3, L4 and L5 MB. unknown) After negative aspiration, 0.2cc of Isovue (unknown) (no (unknown) (unknown) the right L3, L4 (units (unknown) date) and L5 anatomical unknown) location of the medial branch of the dorsal (unknown) (no (unknown) (unknown) then they may be a (units (unknown) date) candidate for unknown) medial branch rhizotomy. The patient is aware, (unknown) (no (unknown) (unknown) using 1% lidocaine (units (unknown) date) solution was unknown) initiated at each of the anatomical spots. (unknown) (no (unknown) (unknown) was provided, once (units (unknown) date) again, with a Pain unknown) Log and will follow up with the referring (unknown) (no (unknown) (unknown) while the patient (units (unknown) date) remained responsive unknown) to all verbal commands (unknown) (no (unknown) (unknown) without incident. (units (unknown) date) unknown) Result panel 9 (unknown) (no (unknown) (unknown) (no value) (units (unk nown) date) unknown) (unknown) (no (unknown) (unknown) (no value) (units (unk nown) date) unknown) (unknown) (no (unknown) (unknown) (no value) (units (unk nown) date) unknown) (unknown) (no (unknown) (unknown) 09/22/21 (units (unkno wn) date) unknown) (unknown) (no (unknown) (unknown) 14:35 (units (unkno wn) date) unknown) (unknown) (no (unknown) (unknown) [place] (units ( unknown) date) [id number] unknown) (unknown) (no (unknown) (unknown) Draft (units (unkno wn) date) unknown) (unknown) (no (unknown) (unknown) Pain Visit (units (unk nown) date) unknown) (unknown) (no (unknown) (unknown) [facility] ([facility] unknown) (unknown) (no (unknown) (unknown) (no value) (units (unk nown) date) unknown) (unknown) (no (unknown) (unknown) [phone] (units (unkn own) date) unknown) (unknown) (no (unknown) (unknown) 09/22/21 (units (unkno wn) date) unknown) (unknown) (no (unknown) (unknown) 09/22/21] (units (unkn own) date) unknown) (unknown) (no (unknown) (unknown) 03/03/21 [History (units (unknown) date) Confirmed unknown) 09/22/21] (unknown) (no (unknown) (unknown) Accompanied by: (units (unknown) date) Self / Same As unknown) Patient (unknown) (no (unknown) (unknown) Age/Sex: 76 / M (units (unknown) date) Date of Service: unknown) (unknown) (no (unknown) (unknown) Allergies (units (unkn own) date) unknown) (unknown) (no (unknown) (unknown) Attending Dr: (units ( unknown) date) Van Coon D.O. 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 unknown) (unknown) (no (unknown) (unknown) Documented By: (units (unknown) date) Van Coon D.O. unknown) 09/22/21 1429 (unknown) (no (unknown) (unknown) Facet (units (unkno wn) date) arthropathy, unknown) lumbar (unknown) (no (unknown) (unknown) Family History (units (unknown) date) (Reviewed 07/14/21 unknown) @ 15:01 by Van Coon DO) (unknown) (no (unknown) (unknown) Father Cancer (units (unknown) date) unknown) (unknown) (no (unknown) (unknown) H/O thumb surgery (units (unknown) date) unknown) (unknown) (no (unknown) (unknown) HERE FOR POST (units ( unknown) date) LUMBAR INJECTION unknown) (unknown) (no (unknown) (unknown) HIPS) Pain scale (units (unknown) date) (1-10): 5 unknown) (unknown) (no (unknown) (unknown) Height 6 ft 2 (units (unknown) date) in unknown) (unknown) (no (unknown) (unknown) History of back (units (unknown) date) surgery unknown) (unknown) (no (unknown) (unknown) History of (units (unk nown) date) cholecystectomy unknown) (unknown) (no (unknown) (unknown) Intake (units (unkno wn) date) unknown) (unknown) (no (unknown) (unknown) Intake Clinical (units (unknown) date) Staff unknown) (unknown) (no (unknown) (unknown) Intake Note: (units (u nknown) date) unknown) (unknown) (no (unknown) (unknown) Intake performed (units (unknown) date) by: Polina Roberts unknown) (unknown) (no (unknown) (unknown) Is patient in (units ( unknown) date) pain?: Yes (HERE unknown) FOR POST LUMBAR AND CERVICAL SPINE BILATERAL (unknown) (no (unknown) (unknown) Loc: PAIN (units (unkn own) date) unknown) (unknown) (no (unknown) (unknown) 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 (unknown) (no (unknown) (unknown) Lumbar stenosis (units (unknown) date) unknown) (unknown) (no (unknown) (unknown) Medical History (units (unknown) date) (Updated 07/14/21 unknown) @ 15:07 by Van Coon DO) (unknown) (no (unknown) (unknown) Medications (units (un known) date) unknown) (unknown) (no (unknown) (unknown) Melanoma (units (unkno wn) date) unknown) (unknown) (no (unknown) (unknown) Mother (units (unkno wn) date) Congestive heart unknown) failure (unknown) (no (unknown) (unknown) Multiple myeloma (units (unknown) date) unknown) (unknown) (no (unknown) (unknown) No Known Drug (units ( unknown) date) Allergies Allergy unknown) (Verified 09/22/21 14:33) (unknown) (no (unknown) (unknown) Oxygen Delivery (units (unknown) date) Method room air unknown) (unknown) (no (unknown) (unknown) PFSH (units (unkno wn) date) unknown) (unknown) (no (unknown) (unknown) Pain Scale (units (unk nown) date) unknown) (unknown) (no (unknown) (unknown) Patient: (units (unkno wn) date) Rui Delvalle unknown) MR#: M (unknown) (no (unknown) (unknown) Position (units (unkno wn) date) Sitting unknown) (unknown) (no (unknown) (unknown) Pulse 80 (units (un known) date) unknown) (unknown) (no (unknown) (unknown) Pulse Oximetry (units (unknown) date) (%) 98 unknown) (unknown) (no (unknown) (unknown) Pulse Source (units (u nknown) date) Monitor unknown) (unknown) (no (unknown) (unknown) Reason For Visit (units (unknown) date) unknown) (unknown) (no (unknown) (unknown) Shoulder (units (unkno wn) date) arthritis unknown) (unknown) (no (unknown) (unknown) Signed By: (units (unk nown) date) unknown) (unknown) (no (unknown) (unknown) Smoking Status: (units (unknown) date) Former smoker unknown) (unknown) (no (unknown) (unknown) Surgical History (units (unknown) date) (Reviewed 07/14/21 unknown) @ 15:01 by Van Coon DO) (unknown) (no (unknown) (unknown) Temp 98.4 F (units (unknown) date) unknown) (unknown) (no (unknown) (unknown) Temp Source (units (un known) date) Temporal Artery unknown) Scan (unknown) (no (unknown) (unknown) This note may (units ( unknown) date) have been all or unknown) partially generated using voice recognition (unknown) (no (unknown) (unknown) Tobacco + (units (unkn own) date) Substance Use unknown) (unknown) (no (unknown) (unknown) Tobacco Status (units (unknown) date) unknown) (unknown) (no (unknown) (unknown) Visit Reasons: FU (units (unknown) date) MBB + Discuss unknown) Cspine, POST LUMBAR SPINE (unknown) (no (unknown) (unknown) Vitals (units (unkno wn) date) unknown) (unknown) (no (unknown) (unknown) Weight 225 lb (units (unknown) date) unknown) (unknown) (no (unknown) (unknown) [History (units (unkno wn) date) Confirmed unknown) 09/22/21] (unknown) (no (unknown) (unknown) acetaminophen 500 (units (unknown) date) mg tablet (Tylenol unknown) Extra Strength) 500 mg PO Q6H 03/03/21 (unknown) (no (unknown) (unknown) acyclovir 400 mg (units (unknown) date) tablet 400 mg PO unknown) BID 03/03/21 [History Confirmed 09/22/21] (unknown) (no (unknown) (unknown) aspirin 81 mg (units ( unknown) date) tablet,delayed unknown) release (Adult Low Dose Aspirin) 81 mg PO DAILY (unknown) (no (unknown) (unknown) calcium carbonate (units (unknown) date) 200 mg calcium unknown) (500 mg) chewable tablet (Calcium Antacid) 200 (unknown) (no (unknown) (unknown) celecoxib 100 mg (units (unknown) date) capsule (Celebrex) unknown) 100 mg PO DAILY #90 cap 09/20/21 [Rx (unknown) (no (unknown) (unknown) cholecalciferol (units (unknown) date) (vitamin D3) 10 unknown) mcg (400 unit) capsule 10 mcg PO DAILY 03/03/21 (unknown) (no (unknown) (unknown) dexamethasone 4 (units (unknown) date) mg tablet 4 mg PO unknown) DAILY 03/03/21 [History Confirmed 09/22/21] (unknown) (no (unknown) (unknown) have occurred. (units (unknown) date) If there are any unknown) questions, please contact the Medical Records (unknown) (no (unknown) (unknown) hydrocodone 5 (units ( unknown) date) mg-acetaminophen unknown) 325 mg tablet 1 tab PO Q6H PRN 03/03/21 [History (unknown) (no (unknown) (unknown) lenalidomide 20 (units (unknown) date) mg capsule 20 mg unknown) PO DAILY 03/03/21 [History Confirmed 09/22/21] (unknown) (no (unknown) (unknown) lorazepam 0.5 mg (units (unknown) date) tablet 0.5 mg PO unknown) .PRN tab 09/22/21 [History Confirmed (unknown) (no (unknown) (unknown) losartan 50 mg (units (unknown) date) tablet 50 mg PO unknown) DAILY 03/03/21 [History Confirmed 09/22/21] (unknown) (no (unknown) (unknown) may occur. (units (unk nown) date) Occasional unknown) wrong-word or 'sound-alike' substitutions may have (unknown) (no (unknown) (unknown) mg PO BID (units (unkn own) date) 03/03/21 [History unknown) Confirmed 09/22/21] (unknown) (no (unknown) (unknown) nifedipine 30 mg (units (unknown) date) tablet,extended unknown) release 30 mg PO DAILY 03/03/21 [History (unknown) (no (unknown) (unknown) occurred due to (units (unknown) date) the inherent unknown) limitations of voice recognition software. Please (unknown) (no (unknown) (unknown) read the note (units ( unknown) date) carefully and unknown) recognize, using context, where these substitutions (unknown) (no (unknown) (unknown) software. (units (unkn own) date) Although every unknown) effort is made to edit content, transportation planner errors (unknown) (no (unknown) (unknown) tamsulosin 0.4 mg (units (unknown) date) capsule (Flomax) unknown) 0.4 mg PO BEDTIME #0 06/02/17 [History Result panel 10 (unknown) (no (unknown) (unknown) (no value) (units (unk nown) date) unknown) (unknown) (no (unknown) (unknown) (no value) (units (unk nown) date) unknown) (unknown) (no (unknown) (unknown) (no value) (units (unk nown) date) unknown) (unknown) (no (unknown) (unknown) 09/22/21 (units (unkno wn) date) unknown) (unknown) (no (unknown) (unknown) 14:35 (units (unkno wn) date) unknown) (unknown) (no (unknown) (unknown) SHARRON Young (units ( unknown) date) [id number] unknown) (unknown) (no (unknown) (unknown) Draft (units (unkno wn) date) unknown) (unknown) (no (unknown) (unknown) Pain Visit (units (unk nown) date) unknown) (unknown) (no (unknown) (unknown) [facility] ([facility] unknown) (unknown) (no (unknown) (unknown) (no value) (units (unk nown) date) unknown) (unknown) (no (unknown) (unknown) [id number] (units (unkn own) date) unknown) (unknown) (no (unknown) (unknown) 09/22/21 (units (unkno wn) date) unknown) (unknown) (no (unknown) (unknown) 09/22/21] (units (unkn own) date) unknown) (unknown) (no (unknown) (unknown) 03/03/21 [History (units (unknown) date) Confirmed unknown) 09/22/21] (unknown) (no (unknown) (unknown) Accompanied by: (units (unknown) date) Self / Same As unknown) Patient (unknown) (no (unknown) (unknown) Age/Sex: 76 / M (units (unknown) date) Date of Service: unknown) (unknown) (no (unknown) (unknown) Allergies (units (unkn own) date) unknown) (unknown) (no (unknown) (unknown) Attending Dr: (units ( unknown) date) Van Coon D.O. 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 unknown) (unknown) (no (unknown) (unknown) Documented By: (units (unknown) date) Van Coon D.O. unknown) 09/22/21 1429 (unknown) (no (unknown) (unknown) Facet (units (unkno wn) date) arthropathy, unknown) lumbar (unknown) (no (unknown) (unknown) Family History (units (unknown) date) (Reviewed 07/14/21 unknown) @ 15:01 by Van Coon DO) (unknown) (no (unknown) (unknown) Father Cancer (units (unknown) date) unknown) (unknown) (no (unknown) (unknown) H/O thumb surgery (units (unknown) date) unknown) (unknown) (no (unknown) (unknown) HERE FOR POST (units ( unknown) date) LUMBAR INJECTION unknown) (unknown) (no (unknown) (unknown) HIPS) Pain scale (units (unknown) date) (1-10): 5 unknown) (unknown) (no (unknown) (unknown) Height 6 ft 2 (units (unknown) date) in unknown) (unknown) (no (unknown) (unknown) History of back (units (unknown) date) surgery unknown) (unknown) (no (unknown) (unknown) History of (units (unk nown) date) cholecystectomy unknown) (unknown) (no (unknown) (unknown) Intake (units (unkno wn) date) unknown) (unknown) (no (unknown) (unknown) Intake Clinical (units (unknown) date) Staff unknown) (unknown) (no (unknown) (unknown) Intake Note: (units (u nknown) date) unknown) (unknown) (no (unknown) (unknown) Intake performed (units (unknown) date) by: Polina Roberts unknown) (unknown) (no (unknown) (unknown) Is patient in (units ( unknown) date) pain?: Yes (HERE unknown) FOR POST LUMBAR AND CERVICAL SPINE BILATERAL (unknown) (no (unknown) (unknown) Loc: PAIN (units (unkn own) date) unknown) (unknown) (no (unknown) (unknown) 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 (unknown) (no (unknown) (unknown) Lumbar stenosis (units (unknown) date) unknown) (unknown) (no (unknown) (unknown) Medical History (units (unknown) date) (Updated 07/14/21 unknown) @ 15:07 by Van Coon DO) (unknown) (no (unknown) (unknown) Medications (units (un known) date) unknown) (unknown) (no (unknown) (unknown) Melanoma (units (unkno wn) date) unknown) (unknown) (no (unknown) (unknown) Mother (units (unkno wn) date) Congestive heart unknown) failure (unknown) (no (unknown) (unknown) Multiple myeloma (units (unknown) date) unknown) (unknown) (no (unknown) (unknown) No Known Drug (units ( unknown) date) Allergies Allergy unknown) (Verified 09/22/21 14:33) (unknown) (no (unknown) (unknown) Oxygen Delivery (units (unknown) date) Method room air unknown) (unknown) (no (unknown) (unknown) PFSH (units (unkno wn) date) unknown) (unknown) (no (unknown) (unknown) Pain Scale (units (unk nown) date) unknown) (unknown) (no (unknown) (unknown) Patient: (units (unkno wn) date) Rui Delvalle unknown) MR#: M (unknown) (no (unknown) (unknown) Position (units (unkno wn) date) Sitting unknown) (unknown) (no (unknown) (unknown) Pulse 80 (units (un known) date) unknown) (unknown) (no (unknown) (unknown) Pulse Oximetry (units (unknown) date) (%) 98 unknown) (unknown) (no (unknown) (unknown) Pulse Source (units (u nknown) date) Monitor unknown) (unknown) (no (unknown) (unknown) Reason For Visit (units (unknown) date) unknown) (unknown) (no (unknown) (unknown) Shoulder (units (unkno wn) date) arthritis unknown) (unknown) (no (unknown) (unknown) Signed By: (units (unk nown) date) unknown) (unknown) (no (unknown) (unknown) Smoking Status: (units (unknown) date) Former smoker unknown) (unknown) (no (unknown) (unknown) Surgical History (units (unknown) date) (Reviewed 07/14/21 unknown) @ 15:01 by Van Coon DO) (unknown) (no (unknown) (unknown) Temp 98.4 F (units (unknown) date) unknown) (unknown) (no (unknown) (unknown) Temp Source (units (un known) date) Temporal Artery unknown) Scan (unknown) (no (unknown) (unknown) This note may (units ( unknown) date) have been all or unknown) partially generated using voice recognition (unknown) (no (unknown) (unknown) Tobacco + (units (unkn own) date) Substance Use unknown) (unknown) (no (unknown) (unknown) Tobacco Status (units (unknown) date) unknown) (unknown) (no (unknown) (unknown) Visit Reasons: FU (units (unknown) date) MBB + Discuss unknown) Cspine, POST LUMBAR SPINE (unknown) (no (unknown) (unknown) Vitals (units (unkno wn) date) unknown) (unknown) (no (unknown) (unknown) Weight 225 lb (units (unknown) date) unknown) (unknown) (no (unknown) (unknown) [History (units (unkno wn) date) Confirmed unknown) 09/22/21] (unknown) (no (unknown) (unknown) acetaminophen 500 (units (unknown) date) mg tablet (Tylenol unknown) Extra Strength) 500 mg PO Q6H 03/03/21 (unknown) (no (unknown) (unknown) acyclovir 400 mg (units (unknown) date) tablet 400 mg PO unknown) BID 03/03/21 [History Confirmed 09/22/21] (unknown) (no (unknown) (unknown) aspirin 81 mg (units ( unknown) date) tablet,delayed unknown) release (Adult Low Dose Aspirin) 81 mg PO DAILY (unknown) (no (unknown) (unknown) calcium carbonate (units (unknown) date) 200 mg calcium unknown) (500 mg) chewable tablet (Calcium Antacid) 200 (unknown) (no (unknown) (unknown) celecoxib 100 mg (units (unknown) date) capsule (Celebrex) unknown) 100 mg PO DAILY #90 cap 09/20/21 [Rx (unknown) (no (unknown) (unknown) cholecalciferol (units (unknown) date) (vitamin D3) 10 unknown) mcg (400 unit) capsule 10 mcg PO DAILY 03/03/21 (unknown) (no (unknown) (unknown) dexamethasone 4 (units (unknown) date) mg tablet 4 mg PO unknown) DAILY 03/03/21 [History Confirmed 09/22/21] (unknown) (no (unknown) (unknown) have occurred. (units (unknown) date) If there are any unknown) questions, please contact the Medical Records (unknown) (no (unknown) (unknown) hydrocodone 5 (units ( unknown) date) mg-acetaminophen unknown) 325 mg tablet 1 tab PO Q6H PRN 03/03/21 [History (unknown) (no (unknown) (unknown) lenalidomide 20 (units (unknown) date) mg capsule 20 mg unknown) PO DAILY 03/03/21 [History Confirmed 09/22/21] (unknown) (no (unknown) (unknown) lorazepam 0.5 mg (units (unknown) date) tablet 0.5 mg PO unknown) .PRN tab 09/22/21 [History Confirmed (unknown) (no (unknown) (unknown) losartan 50 mg (units (unknown) date) tablet 50 mg PO unknown) DAILY 03/03/21 [History Confirmed 09/22/21] (unknown) (no (unknown) (unknown) may occur. (units (unk nown) date) Occasional unknown) wrong-word or 'sound-alike' substitutions may have (unknown) (no (unknown) (unknown) mg PO BID (units (unkn own) date) 03/03/21 [History unknown) Confirmed 09/22/21] (unknown) (no (unknown) (unknown) nifedipine 30 mg (units (unknown) date) tablet,extended unknown) release 30 mg PO DAILY 03/03/21 [History (unknown) (no (unknown) (unknown) occurred due to (units (unknown) date) the inherent unknown) limitations of voice recognition software. Please (unknown) (no (unknown) (unknown) read the note (units ( unknown) date) carefully and unknown) recognize, using context, where these substitutions (unknown) (no (unknown) (unknown) software. (units (unkn own) date) Although every unknown) effort is made to edit content, transportation planner errors (unknown) (no (unknown) (unknown) tamsulosin 0.4 mg (units (unknown) date) capsule (Flomax) unknown) 0.4 mg PO BEDTIME #0 06/02/17 [History Result panel 11 (unknown) (no (unknown) (unknown) (no value) (units (unk nown) date) unknown) (unknown) (no (unknown) (unknown) Orders: (units (unkno wn) date) unknown) (unknown) (no (unknown) (unknown) Qualifiers: (units (un known) date) unknown) (unknown) (no (unknown) (unknown) Status: Acute (units ( unknown) date) unknown) (unknown) (no (unknown) (unknown) (no value) (units (unk nown) date) unknown) (unknown) (no (unknown) (unknown) (no value) (units (unk nown) date) unknown) (unknown) (no (unknown) (unknown) 09/22/21 (units (unkno wn) date) unknown) (unknown) (no (unknown) (unknown) 09/22/21 1503 (units ( unknown) date) unknown) (unknown) (no (unknown) (unknown) 14:35 (units (unkno wn) date) unknown) (unknown) (no (unknown) (unknown) [place] [id number] (unit s (unknown) date) unknown) (unknown) (no (unknown) (unknown) Multiple myeloma (units (unknown) date) remission status: unknown) not in remission Qualified Code(s): (unknown) (no (unknown) (unknown) Neurogenic (units (unk nown) date) claudication status: unknown) without neurogenic claudication (unknown) (no (unknown) (unknown) Pain Visit (units (unk nown) date) unknown) (unknown) (no (unknown) (unknown) Signed (units (unkno wn) date) unknown) (unknown) (no (unknown) (unknown) [facility] (unit s (unknown) date) [facility] unknown) (unknown) (no (unknown) (unknown) (no value) (units (unk nown) date) unknown) (unknown) (no (unknown) (unknown) (1) Facet (units (unkn own) date) arthropathy, lumbar: unknown) (unknown) (no (unknown) (unknown) (2) Lumbar (units (unk nown) date) post-laminectomy unknown) syndrome: (unknown) (no (unknown) (unknown) (3) 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): (unknown) (no (unknown) (unknown) (4) Shoulder (units (u nknown) date) arthritis: unknown) (unknown) (no (unknown) (unknown) (5) Multiple (units (u nknown) date) myeloma: unknown) (unknown) (no (unknown) (unknown) (6) Lumbar (units (unk nown) date) stenosis: unknown) (unknown) (no (unknown) (unknown) [id number] (units (unkn own) date) unknown) (unknown) (no (unknown) (unknown) 09/22/21 (units (unkno wn) date) unknown) (unknown) (no (unknown) (unknown) 09/22/21] (units (unkn own) date) unknown) (unknown) (no (unknown) (unknown) 03/03/21 [History (units (unknown) date) Confirmed 09/22/21] unknown) (unknown) (no (unknown) (unknown) Accompanied by: (units (unknown) date) Self / Same As unknown) Patient (unknown) (no (unknown) (unknown) After lengthy (units ( unknown) date) discussion and did unknown) not believe further pursuit of his medial (unknown) (no (unknown) (unknown) After we have (units ( unknown) date) completed treatment unknown) regarding his lumbar spine we may consider (unknown) (no (unknown) (unknown) Age/Sex: 76 / M (units (unknown) date) Date of Service: unknown) (unknown) (no (unknown) (unknown) All other systems (units (unknown) date) reviewed and are unknown) negative except as noted in HPI. (unknown) (no (unknown) (unknown) Allergies (units (unkn own) date) unknown) (unknown) (no (unknown) (unknown) Assessment + Plan (units (unknown) date) unknown) (unknown) (no (unknown) (unknown) Attending Dr: (units ( unknown) date) Van Coon D.O. unknown) (unknown) (no (unknown) (unknown) BMI 28.8 (units (un known) date) unknown) (unknown) (no (unknown) (unknown) BP 124/74 (units (u nknown) date) unknown) (unknown) (no (unknown) (unknown) Babinski (R/L): - / (unit s (unknown) date) - unknown) (unknown) (no (unknown) (unknown) Blood Pressure (units (unknown) date) Location Rt unknown) brachial (unknown) (no (unknown) (unknown) Brother Diabetes (units (unknown) date) mellitus unknown) (unknown) (no (unknown) (unknown) C3-C7, lumbar right (unit s (unknown) date) laminectomy L3-4 unknown) Mourning (unknown) (no (unknown) (unknown) C90.00 - Multiple (units (unknown) date) myeloma not having unknown) achieved remission (unknown) (no (unknown) (unknown) Cervical stenosis (units (unknown) date) of spinal canal unknown) (unknown) (no (unknown) (unknown) Chief Complaint (units (unknown) date) unknown) (unknown) (no (unknown) (unknown) Chief Complaint: (units (unknown) date) Follow-up bilateral unknown) L3-L4 L5 medial branch block 07/29/2021 (unknown) (no (unknown) (unknown) Clonus (R/L): - / - (unit s (unknown) date) unknown) (unknown) (no (unknown) (unknown) Confirmed 09/22/21] (unit s (unknown) date) unknown) (unknown) (no (unknown) (unknown) 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 unknown) (unknown) (no (unknown) (unknown) Details: (units (unkno wn) date) unknown) (unknown) (no (unknown) (unknown) Documented By: (units (unknown) date) Van Coon D.O. unknown) 09/22/21 1429 (unknown) (no (unknown) (unknown) Dorsalis pedis (units (unknown) date) (R/L): 2+ / 2+ unknown) (unknown) (no (unknown) (unknown) Endorses multiple (units (unknown) date) myeloma dx'd 1999, unknown) DISH, arthritic shoulders, cervical spine (unknown) (no (unknown) (unknown) Exam (units (unkno wn) date) unknown) (unknown) (no (unknown) (unknown) Exam Narrative (units (unknown) date) unknown) (unknown) (no (unknown) (unknown) Exam Narrative: (units (unknown) date) unknown) (unknown) (no (unknown) (unknown) Extension: 30 (units ( unknown) date) unknown) (unknown) (no (unknown) (unknown) Facet arthropathy, (units (unknown) date) lumbar unknown) (unknown) (no (unknown) (unknown) Family History (units (unknown) date) (Reviewed 09/22/21 @ unknown) 14:57 by Van Coon DO) (unknown) (no (unknown) (unknown) Father Cancer (units (unknown) date) unknown) (unknown) (no (unknown) (unknown) Flexion: 90 (units (un known) date) unknown) (unknown) (no (unknown) (unknown) Gait: foot drop (units (unknown) date) Coordination: normal unknown) (unknown) (no (unknown) (unknown) General Appearance: (unit s (unknown) date) Well-nourished, well unknown) developed in no acute distress (unknown) (no (unknown) (unknown) H/O thumb surgery (units (unknown) date) unknown) (unknown) (no (unknown) (unknown) HERE FOR POST (units ( unknown) date) LUMBAR INJECTION unknown) (unknown) (no (unknown) (unknown) HIPS) Pain scale (units (unknown) date) (1-10): 5 unknown) (unknown) (no (unknown) (unknown) HPI (units (unkno wn) date) unknown) (unknown) (no (unknown) (unknown) He does report his (units (unknown) date) trips to both unknown) [place] and [place] were successful. He reports (unknown) (no (unknown) (unknown) He reports (units (unk nown) date) otherwise feeling unknown) well maintain the Covid19 social restrictions (unknown) (no (unknown) (unknown) He underwent a (units (unknown) date) previous right-sided unknown) hemilaminotomy performed by Dr. Barber on (unknown) (no (unknown) (unknown) Height 6 ft 2 in (unit s (unknown) date) unknown) (unknown) (no (unknown) (unknown) Hip Adduction (units ( unknown) date) (R/L): 15? / 15? unknown) Hip Abduction (R/L): 40? / 40? (unknown) (no (unknown) (unknown) Hip Exam (units (unkno wn) date) (Bilateral) unknown) (unknown) (no (unknown) (unknown) Hip Flexion (R/L): (units (unknown) date) 120? / 120? Hip unknown) Extension (R/L): 20? / 20? (unknown) (no (unknown) (unknown) Hip IR (R/L): 5? / (units (unknown) date) 5? Hip ER (R/L): unknown) 30? / 30? (unknown) (no (unknown) (unknown) History of back (units (unknown) date) surgery unknown) (unknown) (no (unknown) (unknown) History of (units (unk nown) date) cholecystectomy unknown) (unknown) (no (unknown) (unknown) Informed consent was (unit s (unknown) date) obtained today unknown) without guarantees or assurances of complete (unknown) (no (unknown) (unknown) Inspection / (units (u nknown) date) Palpation LE (R/L): unknown) non-tender bilaterally (unknown) (no (unknown) (unknown) Intake (units (unkno wn) date) unknown) (unknown) (no (unknown) (unknown) Intake Clinical (units (unknown) date) Staff unknown) (unknown) (no (unknown) (unknown) Intake Note: (units (u nknown) date) unknown) (unknown) (no (unknown) (unknown) Intake performed (units (unknown) date) by: Polina Roberts unknown) (unknown) (no (unknown) (unknown) Is patient in (units ( unknown) date) pain?: Yes (HERE FOR unknown) POST LUMBAR AND CERVICAL SPINE BILATERAL (unknown) (no (unknown) (unknown) L2 (iliopsoas / mid (unit s (unknown) date) anterior thigh unknown) sensation)= 5/5 : normal (unknown) (no (unknown) (unknown) L3 (quadriceps / (units (unknown) date) distal anterior unknown) thigh sensation)= 5/5 : normal (unknown) (no (unknown) (unknown) L4 (tibialis (units (u nknown) date) anterior / patellar unknown) reflex / medial ankle sensation)= 3+/5 : 0+ : (unknown) (no (unknown) (unknown) L5 (EHL / dorsal (units (unknown) date) foot sensation)= unknown) 3+/5 : abnormal (unknown) (no (unknown) (unknown) LE Skin: no rashes (units (unknown) date) or lesions unknown) bilaterally (unknown) (no (unknown) (unknown) Lateral [place](R/L): (units (unknown) date) 20 /30 unknown) (unknown) (no (unknown) (unknown) Loc: PAIN (units (unkn own) date) unknown) (unknown) (no (unknown) (unknown) Lumbar Spine Exam (units (unknown) date) unknown) (unknown) (no (unknown) (unknown) 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 (unknown) (no (unknown) (unknown) Lumbar stenosis (units (unknown) date) unknown) (unknown) (no (unknown) (unknown) Lymph LE: no (units (u nknown) date) inguinal unknown) lymphadenopathy (unknown) (no (unknown) (unknown) MSK: System (units (un known) date) reviewed and no unknown) additional complaints, except as documented. (unknown) (no (unknown) (unknown) Medical History (units (unknown) date) (Reviewed 09/22/21 @ unknown) 14:57 by Van Coon DO) (unknown) (no (unknown) (unknown) Medications (units (un known) date) unknown) (unknown) (no (unknown) (unknown) Melanoma (units (unkno wn) date) unknown) (unknown) (no (unknown) (unknown) Mother Congestive (unit s (unknown) date) heart failure unknown) (unknown) (no (unknown) (unknown) Multiple myeloma (units (unknown) date) unknown) (unknown) (no (unknown) (unknown) Neuro: System (units ( unknown) date) reviewed and no unknown) additional complaints, except as documented. (unknown) (no (unknown) (unknown) No Known Drug (units ( unknown) date) Allergies Allergy unknown) (Verified 09/22/21 14:33) (unknown) (no (unknown) (unknown) No quad tightness (units (unknown) date) unknown) (unknown) (no (unknown) (unknown) Orders (units (unkno wn) date) unknown) (unknown) (no (unknown) (unknown) Orientation: (units (u nknown) date) Oriented to person, unknown) place and time. Mood / Affect: Calm (unknown) (no (unknown) (unknown) Oxygen Delivery (units (unknown) date) Method room air unknown) (unknown) (no (unknown) (unknown) PAIN (units (unkno wn) date) interlaminar/caudal unknown) inj Today M48.061 - Spinal stenosis, lumbar region (unknown) (no (unknown) (unknown) PFSH (units (unkno wn) date) unknown) (unknown) (no (unknown) (unknown) Pain Scale (units (unk nown) date) unknown) (unknown) (no (unknown) (unknown) Patient: (units (unkno wn) date) Rui Delvalle unknown) MR#: M (unknown) (no (unknown) (unknown) Plan (units (unkno wn) date) unknown) (unknown) (no (unknown) (unknown) Position Sitting (unit s (unknown) date) unknown) (unknown) (no (unknown) (unknown) Pulse 80 (units (un known) date) unknown) (unknown) (no (unknown) (unknown) Pulse Oximetry (%) (units (unknown) date) 98 unknown) (unknown) (no (unknown) (unknown) Pulse Source (units (u nknown) date) Monitor unknown) (unknown) (no (unknown) (unknown) Qualified Code(s): (units (unknown) date) M48.061 - Spinal unknown) stenosis, lumbar region without neurogenic (unknown) (no (unknown) (unknown) ROS (units (unkno wn) date) unknown) (unknown) (no (unknown) (unknown) ROS Narrative (units ( unknown) date) unknown) (unknown) (no (unknown) (unknown) ROS Narrative: (units (unknown) date) unknown) (unknown) (no (unknown) (unknown) Reason For Visit (units (unknown) date) unknown) (unknown) (no (unknown) (unknown) Feng and I (units (unk nown) date) discussed at length unknown) his underlying pathology and his response with (unknown) (no (unknown) (unknown) Feng returns to (units (unknown) date) clinic today status unknown) post bilateral L3, L4, L5 medial branch (unknown) (no (unknown) (unknown) Rotation (R/L): 25 (units (unknown) date) / 45 unknown) (unknown) (no (unknown) (unknown) S1 (Peroneals / (units (unknown) date) Achilles reflex / unknown) lateral ankle sensation)= 5/5 : 1+ : abnormal (unknown) (no (unknown) (unknown) Seated SLR(R/L): + (units (unknown) date) / + unknown) (unknown) (no (unknown) (unknown) Sensation: (units (unk nown) date) Subjective normal unknown) distal sensation bilaterally (unknown) (no (unknown) (unknown) Shoulder arthritis (units (unknown) date) unknown) (unknown) (no (unknown) (unknown) Signed By: (units (unk nown) date) <Electronically unknown) signed by Van Coon D.O.> (unknown) (no (unknown) (unknown) Smoking Status: (units (unknown) date) Former smoker unknown) (unknown) (no (unknown) (unknown) Strength LE: 3+/5 (units (unknown) date) EHL, tibialis unknown) anterior, plantar flexion bilaterally (unknown) (no (unknown) (unknown) Supine SLR (R/L): - (unit s (unknown) date) / - unknown) (unknown) (no (unknown) (unknown) Surgical History (units (unknown) date) (Reviewed 09/22/21 @ unknown) 14:57 by Van Coon DO) (unknown) (no (unknown) (unknown) Temp 98.4 F (units (unknown) date) unknown) (unknown) (no (unknown) (unknown) Temp Source (units (un known) date) Temporal Artery Scan unknown) (unknown) (no (unknown) (unknown) Tenderness: LS jxn (units (unknown) date) worse with extension unknown) loading (unknown) (no (unknown) (unknown) This note may have (units (unknown) date) been all or unknown) partially generated using voice recognition (unknown) (no (unknown) (unknown) Tobacco + Substance (unit s (unknown) date) Use unknown) (unknown) (no (unknown) (unknown) Tobacco Status (units (unknown) date) unknown) (unknown) (no (unknown) (unknown) Vasculature: 2+ (units (unknown) date) dorsalis pedis pulse unknown) bilaterally (unknown) (no (unknown) (unknown) Visit Reasons: FU (units (unknown) date) MBB + Discuss unknown) Cspine, POST LUMBAR SPINE (unknown) (no (unknown) (unknown) Vitals (units (unkno wn) date) unknown) (unknown) (no (unknown) (unknown) Tiffanie Signs: (units ( unknown) date) -tenderness, unknown) -simulation, -distraction, -regional disturbances, - (unknown) (no (unknown) (unknown) We did review the (units (unknown) date) above-stated unknown) procedure at length and verbal consent was (unknown) (no (unknown) (unknown) Weight 225 lb (units (unknown) date) unknown) (unknown) (no (unknown) (unknown) [History Confirmed (units (unknown) date) 09/22/21] unknown) (unknown) (no (unknown) (unknown) abnormal (units (unkno wn) date) unknown) (unknown) (no (unknown) (unknown) acetaminophen 500 (units (unknown) date) mg tablet (Tylenol unknown) Extra Strength) 500 mg PO Q6H 03/03/21 (unknown) (no (unknown) (unknown) acyclovir 400 mg (units (unknown) date) tablet 400 mg PO BID unknown) 03/03/21 [History Confirmed 09/22/21] (unknown) (no (unknown) (unknown) and his visual (units (unknown) date) analogue scale does unknown) show improvement in his low back pain of (unknown) (no (unknown) (unknown) approximately 50% (units (unknown) date) initially. He does unknown) report return of symptoms both regarding (unknown) (no (unknown) (unknown) aspirin 81 mg (units ( unknown) date) tablet,delayed unknown) release (Adult Low Dose Aspirin) 81 mg PO DAILY (unknown) (no (unknown) (unknown) ay occur. (units (unkn own) date) Occasional unknown) wrong-word or 'sound-alike' substitutions may have (unknown) (no (unknown) (unknown) back and bilateral (units (unknown) date) lower extremities. unknown) He reports that both his neck pain as (unknown) (no (unknown) (unknown) basis. (units (unkno wn) date) unknown) (unknown) (no (unknown) (unknown) blocks performed (units (unknown) date) 07/29/2021. He unknown) reports no difficulty with the procedure itself (unknown) (no (unknown) (unknown) blocks. He (units (un known) date) continues with unknown) neurogenic claudication symptoms involving the low (unknown) (no (unknown) (unknown) branches would be (units (unknown) date) prudent. I do unknown) believe he would be better served by further (unknown) (no (unknown) (unknown) calcium carbonate (units (unknown) date) 200 mg calcium (500 unknown) mg) chewable tablet (Calcium Antacid) 200 (unknown) (no (unknown) (unknown) celecoxib 100 mg (units (unknown) date) capsule (Celebrex) unknown) 100 mg PO DAILY #90 cap 09/20/21 [Rx (unknown) (no (unknown) (unknown) cholecalciferol (units (unknown) date) (vitamin D3) 10 mcg unknown) (400 unit) capsule 10 mcg PO DAILY 03/03/21 (unknown) (no (unknown) (unknown) claudication (units (u nknown) date) unknown) (unknown) (no (unknown) (unknown) concern. We did (units (unknown) date) discuss his previous unknown) response with bilateral L4-L5 and S1 (unknown) (no (unknown) (unknown) dexamethasone 4 mg (units (unknown) date) tablet 4 mg PO DAILY unknown) 03/03/21 [History Confirmed 09/22/21] (unknown) (no (unknown) (unknown) does report he (units (unknown) date) continues with his unknown) treatments regarding his underlying cancer. (unknown) (no (unknown) (unknown) have occurred. If (units (unknown) date) there are any unknown) questions, please contact the Medical Records (unknown) (no (unknown) (unknown) he continues to try (units (unknown) date) to remain as unknown) positive his possible intake as much on a daily (unknown) (no (unknown) (unknown) her bilateral L3, (units (unknown) date) L4, L5 medial branch unknown) blocks performed 07/29/2021. He did have (unknown) (no (unknown) (unknown) his gait pattern (units (unknown) date) reduce his unknown) neurogenic claudication. (unknown) (no (unknown) (unknown) hydrocodone 5 (units ( unknown) date) mg-acetaminophen 325 unknown) mg tablet 1 tab PO Q6H PRN 03/03/21 [History (unknown) (no (unknown) (unknown) injury, stroke, (units (unknown) date) paralysis and unknown) and the patient elected to proceed. (unknown) (no (unknown) (unknown) intravenous drug (units (unknown) date) use, sustained unknown) glucocorticoid use, osteoporosis, or a focal (unknown) (no (unknown) (unknown) lenalidomide 20 mg (units (unknown) date) capsule 20 mg PO unknown) DAILY 03/03/21 [History Confirmed 09/22/21] (unknown) (no (unknown) (unknown) levels. We did (units (unknown) date) discuss further unknown) treatment options available to elected to (unknown) (no (unknown) (unknown) lorazepam 0.5 mg (units (unknown) date) tablet 0.5 mg PO unknown) .PRN tab 09/22/21 [History Confirmed (unknown) (no (unknown) (unknown) losartan 50 mg (units (unknown) date) tablet 50 mg PO unknown) DAILY 03/03/21 [History Confirmed 09/22/21] (unknown) (no (unknown) (unknown) medial branch (units ( unknown) date) rhizotomy performed unknown) at [facility] in 2017. (unknown) (no (unknown) (unknown) mg PO BID 03/03/21 (units (unknown) date) [History Confirmed unknown) 09/22/21] (unknown) (no (unknown) (unknown) neurological (units (u nknown) date) deficit with unknown) progressive or disabling symptoms. (unknown) (no (unknown) (unknown) nifedipine 30 mg (units (unknown) date) tablet,extended unknown) release 30 mg PO DAILY 03/03/21 [History (unknown) (no (unknown) (unknown) obtained today, As (units (unknown) date) oral consent, we did unknown) review the risks of the above stated (unknown) (no (unknown) (unknown) occurred due to the (unit s (unknown) date) inherent limitations unknown) of voice recognition software. Please (unknown) (no (unknown) (unknown) or (units (unkno wn) date) immunosuppressive unknown) therapy, previous or current cancer diagnosis, history of (unknown) (no (unknown) (unknown) overreaction (units (u nknown) date) unknown) (unknown) (no (unknown) (unknown) procedure including (units (unknown) date) not limited to unknown) bleeding, infection, allergic reaction, nerve (unknown) (no (unknown) (unknown) proceed with an (units (unknown) date) L2-3 translaminar unknown) ANASTASIYA to significant further offset and improve (unknown) (no (unknown) (unknown) prominent relief (units (unknown) date) from his axial low unknown) back pain associated with medial branch (unknown) (no (unknown) (unknown) questions were (units (unknown) date) answered to the best unknown) my ability is in agreement with the above- (unknown) (no (unknown) (unknown) read the note (units ( unknown) date) carefully and unknown) recognize, using context, where these substitutions (unknown) (no (unknown) (unknown) relief applied. (units (unknown) date) Will complete unknown) written consent on the day of the procedure. (unknown) (no (unknown) (unknown) similar to his (units (unknown) date) cervical spine to unknown) offset his current symptomatology. All of his (unknown) (no (unknown) (unknown) site unspecified, (units (unknown) date) M96.1 - unknown) Postlaminectomy syndrome, not elsewhere classified (unknown) (no (unknown) (unknown) software. Although (units (unknown) date) every effort is made unknown) to edit content, transportation planner errors m (unknown) (no (unknown) (unknown) stated plan. (units (u nknown) date) unknown) (unknown) (no (unknown) (unknown) tamsulosin 0.4 mg (units (unknown) date) capsule (Flomax) 0.4 unknown) mg PO BEDTIME #0 06/02/17 [History (unknown) (no (unknown) (unknown) the back as well as (unit s (unknown) date) the heaviness in unknown) neurogenic claudication symptoms involving (unknown) (no (unknown) (unknown) the bilateral lower (unit s (unknown) date) extremities. He unknown) reports no new traumas or illnesses. He (unknown) (no (unknown) (unknown) the right-sided L3 (units (unknown) date) and L4. His unknown) stenosis is most prominent at the L4-5 and L2-3 (unknown) (no (unknown) (unknown) treatment regarding (unit s (unknown) date) his underlying unknown) spinal stenosis and neurogenic claudication. (unknown) (no (unknown) (unknown) well as his (units (un known) date) neurogenic unknown) claudication symptoms and altered gait are his primary (unknown) (no (unknown) (unknown) without cough fever (unit s (unknown) date) fatigue at this unknown) time. He has been fully vaccinated. (unknown) (no (unknown) (unknown) without neurogenic (units (unknown) date) claudication, M48.10 unknown) - Ankylosing hyperostosis [[place]], Result panel 12 (unknown) (no (unknown) (unknown) (no value) (units (unk nown) date) unknown) (unknown) (no (unknown) (unknown) (no value) (units (unk nown) date) unknown) (unknown) (no (unknown) (unknown) [place] (units ( unknown) date) [id number] unknown) (unknown) (no (unknown) (unknown) Draft (units (unkno wn) date) unknown) (unknown) (no (unknown) (unknown) Nurse Office (units (u nknown) date) Visit unknown) (unknown) (no (unknown) (unknown) [facility] unknown) (unknown) (no (unknown) (unknown) (no value) (units (unk nown) date) unknown) (unknown) (no (unknown) (unknown) COVID-19 (units (u nknown) date) unknown) (unknown) (no (unknown) (unknown) [id number] (units (unkn own) date) unknown) (unknown) (no (unknown) (unknown) 10/04/21 (units (unkno wn) date) unknown) (unknown) (no (unknown) (unknown) Age/Sex: 76 / M (units (unknown) date) Date of unknown) Service: (unknown) (no (unknown) (unknown) Allergies (units (unkn own) date) unknown) (unknown) (no (unknown) (unknown) Attending Dr: (units ( unknown) date) Van Coon unknown) D.O. (unknown) (no (unknown) (unknown) : 1945 (units (unknown) date) Acct:[id number] unknown) (unknown) (no (unknown) (unknown) Dept at (units (unkno wn) date) . unknown) (unknown) (no (unknown) (unknown) Documented By: (units (unknown) date) Van Coon unknown) D.O. 10/04/21 1019 (unknown) (no (unknown) (unknown) Evaluation/Scree (units (unknown) date) reina for possible unknown) COVID-19 completed?: Yes- COVID-19 CPT (unknown) (no (unknown) (unknown) Intake (units (unkno wn) date) unknown) (unknown) (no (unknown) (unknown) Loc: PAIN (units (unkn own) date) unknown) (unknown) (no (unknown) (unknown) No Known Drug (units ( unknown) date) Allergies Allergy unknown) (Verified 09/22/21 14:33) (unknown) (no (unknown) (unknown) Note (units (unkno wn) date) unknown) (unknown) (no (unknown) (unknown) Note: (units (unkno wn) date) unknown) (unknown) (no (unknown) (unknown) Patient tolerated (units (unknown) date) test well.? unknown) Informed patient that he would only be notified of (unknown) (no (unknown) (unknown) Patient: (units (unkno wn) date) Rui Delvalle unknown) MR#: M (unknown) (no (unknown) (unknown) Reason For Visit (units (unknown) date) unknown) (unknown) (no (unknown) (unknown) Signed By: (units (unk nown) date) unknown) (unknown) (no (unknown) (unknown) Smoking Status: (units (unknown) date) Former smoker unknown) (unknown) (no (unknown) (unknown) This note may (units ( unknown) date) have been all or unknown) partially generated using voice recognition (unknown) (no (unknown) (unknown) Tobacco Status (units (unknown) date) unknown) (unknown) (no (unknown) (unknown) Visit Reasons: (units (unknown) date) Pre procedure unknown) (unknown) (no (unknown) (unknown) have occurred. (units (unknown) date) If there are any unknown) questions, please contact the Medical Records (unknown) (no (unknown) (unknown) may occur. (units (unk nown) date) Occasional unknown) wrong-word or 'sound-alike' substitutions may have (unknown) (no (unknown) (unknown) occurred due to (units (unknown) date) the inherent unknown) limitations of voice recognition software. Please (unknown) (no (unknown) (unknown) read the note (units ( unknown) date) carefully and unknown) recognize, using context, where these substitutions (unknown) (no (unknown) (unknown) results if the (units (unknown) date) test is positive. unknown) (unknown) (no (unknown) (unknown) software. (units (unkn own) date) Although every unknown) effort is made to edit content, transportation planner errors Result panel 13 (unknown) (no (unknown) (unknown) (no value) (units (unk nown) date) unknown) (unknown) (no (unknown) (unknown) (no value) (units (unk nown) date) unknown) (unknown) (no (unknown) (unknown) 10/04/21 1116 (units ( unknown) date) unknown) (unknown) (no (unknown) (unknown) [place] (units ( unknown) date) [id number] unknown) (unknown) (no (unknown) (unknown) Nurse Office (units (u nknown) date) Visit unknown) (unknown) (no (unknown) (unknown) Signed (units (unkno wn) date) unknown) (unknown) (no (unknown) (unknown) [facility] unknown) (unknown) (no (unknown) (unknown) (no value) (units (unk nown) date) unknown) (unknown) (no (unknown) (unknown) COVID-19 (units (u nknown) date) unknown) (unknown) (no (unknown) (unknown) [id number] (units (unkn own) date) unknown) (unknown) (no (unknown) (unknown) 10/04/21 (units (unkno wn) date) unknown) (unknown) (no (unknown) (unknown) Age/Sex: 76 / M (units (unknown) date) Date of unknown) Service: (unknown) (no (unknown) (unknown) Allergies (units (unkn own) date) unknown) (unknown) (no (unknown) (unknown) Attending Dr: (units ( unknown) date) Van Coon unknown) D.O. (unknown) (no (unknown) (unknown) : 1945 (units (unknown) date) Acct:[id number] unknown) (unknown) (no (unknown) (unknown) Dept at (units (unkno wn) date) . unknown) (unknown) (no (unknown) (unknown) Documented By: (units (unknown) date) Van Coon unknown) D.O. 10/04/21 1019 (unknown) (no (unknown) (unknown) Evaluation/Scree (units (unknown) date) reina for possible unknown) COVID-19 completed?: Yes- COVID-19 CPT (unknown) (no (unknown) (unknown) Intake (units (unkno wn) date) unknown) (unknown) (no (unknown) (unknown) Loc: PAIN (units (unkn own) date) unknown) (unknown) (no (unknown) (unknown) No Known Drug (units ( unknown) date) Allergies Allergy unknown) (Verified 09/22/21 14:33) (unknown) (no (unknown) (unknown) Note (units (unkno wn) date) unknown) (unknown) (no (unknown) (unknown) Note: (units (unkno wn) date) unknown) (unknown) (no (unknown) (unknown) Patient tolerated (units (unknown) date) test well.? unknown) Informed patient that he would only be notified of (unknown) (no (unknown) (unknown) Patient: (units (unkno wn) date) Rui Delvalle unknown) MR#: M (unknown) (no (unknown) (unknown) Reason For Visit (units (unknown) date) unknown) (unknown) (no (unknown) (unknown) Signed By: (units (unk nown) date) <Electronically unknown) signed by Van Coon D.O.> (unknown) (no (unknown) (unknown) Smoking Status: (units (unknown) date) Former smoker unknown) (unknown) (no (unknown) (unknown) This note may (units ( unknown) date) have been all or unknown) partially generated using voice recognition (unknown) (no (unknown) (unknown) Tobacco Status (units (unknown) date) unknown) (unknown) (no (unknown) (unknown) Visit Reasons: (units (unknown) date) Pre procedure unknown) (unknown) (no (unknown) (unknown) ay occur. (units (unkn own) date) Occasional unknown) wrong-word or 'sound-alike' substitutions may have (unknown) (no (unknown) (unknown) have occurred. (units (unknown) date) If there are any unknown) questions, please contact the Medical Records (unknown) (no (unknown) (unknown) occurred due to (units (unknown) date) the inherent unknown) limitations of voice recognition software. Please (unknown) (no (unknown) (unknown) read the note (units ( unknown) date) carefully and unknown) recognize, using context, where these substitutions (unknown) (no (unknown) (unknown) results if the (units (unknown) date) test is positive. unknown) (unknown) (no (unknown) (unknown) software. (units (unkn own) date) Although every unknown) effort is made to edit content, transportation planner errors m Result panel 14 (unknown) (no date) (unknown) (unknown) Negative (units (unkn own) unknown) Result panel 15 (unknown) (no (unknown) (unknown) (no value) (units (unk nown) date) unknown) (unknown) (no (unknown) (unknown) [address] [place] [address] (units (unknown) date) unknown) (unknown) (no (unknown) (unknown) [place], [place] (units ( unknown) date) [id number] unknown) (unknown) (no (unknown) (unknown) [facility] (units (unknown) date) unknown) (unknown) (no (unknown) (unknown) Signed (units (unkno wn) date) unknown) (unknown) (no (unknown) (unknown) XRay Report (units (un known) date) unknown) (unknown) (no (unknown) (unknown) (no value) (units (unk nown) date) unknown) (unknown) (no (unknown) (unknown) 10/05/21 (units (unkno wn) date) unknown) (unknown) (no (unknown) (unknown) Approved by: (units (u nknown) date) Tomi Johnson, shannon) Lisa on 10/05/2021 at 14:49 (unknown) (no (unknown) (unknown) COMPARISON: (units (un known) date) [facility], unknown) XA, PAIN L INTERLAMINAR/CAUDA L INJ, 05/11/2021, (unknown) (no (unknown) (unknown) Dictated by: (units (u nknown) date) shannon Fatima) Lisa on 10/05/2021 at 14:48 (unknown) (no (unknown) (unknown) FINDINGS: (units (unkn own) date) unknown) (unknown) (no (unknown) (unknown) Fluoroscopic spot (units (unknown) date) filming was unknown) performed to verify placement of a spinal needle (unknown) (no (unknown) (unknown) IMPRESSION: (units (un known) date) Intraprocedural unknown) examination within normal limits. (unknown) (no (unknown) (unknown) INDICATIONS: (units (u nknown) date) SPONDYLOSIS unknown) (unknown) (no (unknown) (unknown) L2-L3 level, as (units (unknown) date) labeled on the unknown) films. Appropriate location of the needle tip (unknown) (no (unknown) (unknown) confirmed by (units (u nknown) date) injection of unknown) iodinated contrast. (unknown) (no (unknown) (unknown) 14:53. (units (unkno wn) date) unknown) (unknown) (no (unknown) (unknown) Accession Number: (units (unknown) date) [id number] unknown) (unknown) (no (unknown) (unknown) Age/Sex: 76 / M (units (unknown) date) Date of Service: unknown) (unknown) (no (unknown) (unknown) : 1945 (units (unknown) date) Acct:[id number] unknown) (unknown) (no (unknown) (unknown) Loc: RAD (units (unkno wn) date) unknown) (unknown) (no (unknown) (unknown) [id number] (units (unk nown) date) unknown) (unknown) (no (unknown) (unknown) Ordering (units (unkno wn) date) Provider: unknown) Van Coon D.O. (unknown) (no (unknown) (unknown) PROCEDURE: PAIN (units (unknown) date) L unknown) INTERLAMINAR/CAUDA L INJ (unknown) (no (unknown) (unknown) Patient: (units (unkno wn) date) MookRui Alonso unknown) MR#: (unknown) (no (unknown) (unknown) Procedure: PAIN (units (unknown) date) interlaminar/cauda unknown) l inj (unknown) (no (unknown) (unknown) at the (units (unkno wn) date) unknown) (unknown) (no (unknown) (unknown) was (units (unkno wn) date) unknown) Result panel 16 (unknown) (no (unknown) (unknown) (no value) (units (unk nown) date) unknown) (unknown) (no (unknown) (unknown) Date of Service: (units (unknown) date) 10/05/21 unknown) (unknown) (no (unknown) (unknown) 10/05/21 1441 (units ( unknown) date) unknown) (unknown) (no (unknown) (unknown) [facility] (units (unknown) date) [address] unknown) [place] [address] (unknown) (no (unknown) (unknown) Procedure Note (units (unknown) date) unknown) (unknown) (no (unknown) (unknown) (no value) (units (unk nown) date) unknown) (unknown) (no (unknown) (unknown) [id number] (units (unkn own) date) unknown) (unknown) (no (unknown) (unknown) 1. (units (unkno wn) date) FLUOROSCOPICALLY unknown) GUIDED CONTRAST CONTROLLED INTERLAMINAR EPIDURAL STEROID (unknown) (no (unknown) (unknown) 2. MULTILEVEL (units (unknown) date) CENTRAL STENOSIS, unknown) (unknown) (no (unknown) (unknown) After review of (units (unknown) date) previous unknown) anaesthesic history and IV conscious sedation the (unknown) (no (unknown) (unknown) Age/Sex: 76 / M (units (unknown) date) unknown) (unknown) (no (unknown) (unknown) At this point, (units (unknown) date) using loss of unknown) resistance technique with saline and air, the (unknown) (no (unknown) (unknown) Complications: (units (unknown) date) none unknown) (unknown) (no (unknown) (unknown) DESCRIPTION OF (units (unknown) date) PROCEDURE unknown) (unknown) (no (unknown) (unknown) : 1945 (units (unknown) date) Acct:[id number] unknown) (unknown) (no (unknown) (unknown) Date of procedure: (units (unknown) date) 10/05/21 unknown) (unknown) (no (unknown) (unknown) Date/Time/Diagnose (units (unknown) date) s unknown) (unknown) (no (unknown) (unknown) FINDINGS (units (unkno wn) date) unknown) (unknown) (no (unknown) (unknown) Fluoroscopically (units (unknown) date) guided, unknown) contrast-controlled L2/3 translaminar epidural steroid (unknown) (no (unknown) (unknown) Following review (units (unknown) date) of allergy and unknown) review of potential side effects and (unknown) (no (unknown) (unknown) INJECTION - L2/3 (units (unknown) date) unknown) (unknown) (no (unknown) (unknown) In the prone (units (un known) date) position, following unknown) sterile prep and drape of the lumbar region,the (unknown) (no (unknown) (unknown) Indications: (units (u nknown) date) unknown) (unknown) (no (unknown) (unknown) L2/3 translaminar (units (unknown) date) space was unknown) identified fluoroscopically. The skin was (unknown) (no (unknown) (unknown) LE symptoms. (units (u nknown) date) unknown) (unknown) (no (unknown) (unknown) Multilevel Central (units (unknown) date) Spinal Stenosis unknown) with Nerve Root Compression (unknown) (no (unknown) (unknown) POST OP (units (unkno wn) date) INSTRUCTIONS unknown) (unknown) (no (unknown) (unknown) Patient: (units (unkno wn) date) Rui Delvalle unknown) MR#: [id number] (unknown) (no (unknown) (unknown) Physician: Van (units (unknown) date) Jaymie unknown) (unknown) (no (unknown) (unknown) Post-procedure (units (unknown) date) diagnosis: same unknown) (unknown) (no (unknown) (unknown) Pre-procedure (units ( unknown) date) diagnosis: 1. HNP unknown) WITH RADICULAR FEATURES, (unknown) (no (unknown) (unknown) Procedure Notes (units (unknown) date) unknown) (unknown) (no (unknown) (unknown) Procedure in (units (u nknown) date) detail + unknown) Post-procedure care: (unknown) (no (unknown) (unknown) Procedure: (units (unk nown) date) unknown) (unknown) (no (unknown) (unknown) Provider: (units (unkn own) date) Van Coon D.O. unknown) (unknown) (no (unknown) (unknown) Radiological data, (units (unknown) date) including multiple unknown) fluoroscopic views of the lumbar spine, (unknown) (no (unknown) (unknown) Riu is referred (units (unknown) date) by Dr. 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 (unknown) (no (unknown) (unknown) Signed (units (unkno wn) date) By:<Electronically unknown) signed by Van Coon D.O.> (unknown) (no (unknown) (unknown) The patient (units (un known) date) tolerated the unknown) procedure well without signs or symptoms of (unknown) (no (unknown) (unknown) The patient was (units (unknown) date) provided a Pain Log unknown) to continue to record their response to the (unknown) (no (unknown) (unknown) The patient was (units (unknown) date) then transferred to unknown) the recovery area where they were observed (unknown) (no (unknown) (unknown) Time of procedure: (units (unknown) date) 14:40 unknown) (unknown) (no (unknown) (unknown) Total Fluoroscopy (units (unknown) date) time (seconds): 12 unknown) (unknown) (no (unknown) (unknown) Total sedation (units (unknown) date) minutes: 16 unknown) (unknown) (no (unknown) (unknown) VAS score of 6 (units (unknown) date) prior to the unknown) procedure and a post-procedure VAS of 0. (unknown) (no (unknown) (unknown) accomplished with (units (unknown) date) a combination of unknown) 2mg Versed administered by the RN after DO (unknown) (no (unknown) (unknown) and advanced under (units (unknown) date) fluoroscopic unknown) guidance into the region of the L2/3 (unknown) (no (unknown) (unknown) anesthetized via a (units (unknown) date) 25-gauge, 1.5-inch unknown) needle with 1% lidocaine solution. At (unknown) (no (unknown) (unknown) betamethasone was (units (unknown) date) injected without unknown) incident. (unknown) (no (unknown) (unknown) complications (units ( unknown) date) associated with the unknown) procedure are suspected. (unknown) (no (unknown) (unknown) complications (units ( unknown) date) prior to transfer unknown) to the recovery area continued monitoring (unknown) (no (unknown) (unknown) complications, (units (unknown) date) including, but not unknown) necessarily limited to, infection, allergic (unknown) (no (unknown) (unknown) epidural space was (units (unknown) date) entered. This was unknown) confirmed following negative aspiration (unknown) (no (unknown) (unknown) flow without (units (u nknown) date) vascular or unknown) intrathecal uptake. At this point, 1 cc of 1% (unknown) (no (unknown) (unknown) for an appropriate (units (unknown) date) period of time unknown) after the injection. The patient reported a (unknown) (no (unknown) (unknown) annetta. Additionally, (units (unknown) date) specific unknown) post-injection care instructions and a contact (unknown) (no (unknown) (unknown) injection. (units (unk nown) date) unknown) (unknown) (no (unknown) (unknown) lidocaine solution (units (unknown) date) combined with 3cc unknown) or 20mg of dexamethasone and 6mg of (unknown) (no (unknown) (unknown) material flowing (units (unknown) date) superiorly and unknown) inferiorly in the epidural space. No vascular (unknown) (no (unknown) (unknown) number to our (units ( unknown) date) office were unknown) provided if concerns arise regarding possible (unknown) (no (unknown) (unknown) or intrathecal (units (unknown) date) uptake is observed. unknown) (unknown) (no (unknown) (unknown) order, titrated to (units (unknown) date) patient comfort unknown) during the course of the procedure while the (unknown) (no (unknown) (unknown) other treatment (units (unknown) date) options including unknown) modalities, medications, and physical therapy (unknown) (no (unknown) (unknown) paralysis, stroke (units (unknown) date) and possible , unknown) the patient indicated that the patient (unknown) (no (unknown) (unknown) patient ID, (units (un known) date) procedure to be unknown) performed and site of procedure. IV sedation was (unknown) (no (unknown) (unknown) patient remained (units (unknown) date) responsive to all unknown) verbal commands. (unknown) (no (unknown) (unknown) patient was deemed (units (unknown) date) safe to proceed unknown) with today?s procedure with IV conscious (unknown) (no (unknown) (unknown) patient, witnessed (units (unknown) date) by a nurse, and unknown) placed in the patient's chart. Additionally, (unknown) (no (unknown) (unknown) placement of the (units (unknown) date) needle in the unknown) epidural space. Subsequent views show contrast (unknown) (no (unknown) (unknown) reaction, local (units (unknown) date) tissue breakdown, unknown) temporary as well as permanent nerve injury, (unknown) (no (unknown) (unknown) reveal a spinal (units (unknown) date) needle at the L2/3 unknown) translaminar space. Lateral views then show (unknown) (no (unknown) (unknown) sedation as ASA (units (unknown) date) class II unknown) designation. Safety time-out was performed to confirm (unknown) (no (unknown) (unknown) target-specific (units (unknown) date) procedure prior to unknown) follow-up visit with their referring physic (unknown) (no (unknown) (unknown) this point, a (units ( unknown) date) 22-gauge short unknown) bevel spinal needle was atraumatically introduced (unknown) (no (unknown) (unknown) translaminar (units (u nknown) date) space. Depth was unknown) confirmed on lateral view. (unknown) (no (unknown) (unknown) understood and (units ( unknown) date) agreed to proceed. unknown) An informed consent document was signed by the (unknown) (no (unknown) (unknown) were reviewed with (units (unknown) date) the patient. unknown) (unknown) (no (unknown) (unknown) with injection of (units (unknown) date) approximately 1.5 unknown) cc of Isovue 200, showing excellent epidural (unknown) (no (unknown) (unknown) without incident. (units (unknown) date) unknown) Social History date description facility (no date) Ex-smoker (finding) [facility] Vital Signs date measurement value units [id number]+0000 BMI BMI 28.9 kg/m2 64457910239954+0000 BP_diastolic BP_diastolic 78 mm[H g] 02620494166365+0000 BP_systolic BP_systolic 136 mm[Hg] 60118986083731+0000 heart_rate heart_rate 83 /min 99052573821035+0000 height_metric height_metric 187.96 cm [id number]+0000 height_standard height_standard 74 in [id number]+0000 temperature_metric temperature_metric 37.06 C [id number]+0000 temperature_standard temperature_standard 9 8.7 F [id number]+0000 weight_metric weight_metric 46.37 kg 21820533125152+0000 weight_standard weight_standard 102.23 lb [id number]+0000 BP_diastolic BP_diastolic 63 mm[H g] 86023073558495+0000 BP_systolic BP_systolic 116 mm[Hg] 88567418478880+0000 heart_rate heart_rate 68 /min 17425681835509+0000 respiration_rate respiration_rate 14 /min 63798973772047+0000 temperature_metric temperature_metric 36.83 C [id number]+0000 temperature_standard temperature_standard 9 8.3 F [id number]+0000 BMI BMI 28.8 kg/m2 70805400982809+0000 BP_diastolic BP_diastolic 74 mm[H g] 68337877693119+0000 BP_systolic BP_systolic 124 mm[Hg] 09235580605965+0000 heart_rate heart_rate 80 /min 04672201450524+0000 height_metric height_metric 187.96 cm 79338978132799+0000 height_standard height_standard 74 in [id number]+0000 temperature_metric temperature_metric 36.89 C [id number]+0000 temperature_standard temperature_standard 9 8.4 F 46280730287764+0000 weight_metric weight_metric 46.29 kg 03715730650537+0000 weight_standard weight_standard 102.06 lb 41502740199449+0000 BP_diastolic BP_diastolic 73 mm[H g] 59869023923048+0000 BP_systolic BP_systolic 128 mm[Hg] 45576951269806+0000 heart_rate heart_rate 88 /min +0000 respiration_rate respiration_rate 14 /min +0000 temperature_metric temperature_metric 37.06 C +0000 temperature_standard temperature_standard 9 8.7 F
[2021-10-07] MEDS ORDERED: ASPIRIN 325 MG TABLET PO STA (17:18)
[2021-10-07] MEDS: HEPARIN 25000UNITS/500ML (D5W) 25,000 UNIT/500 ML BAG IV SCH (17:37)
[2021-10-07] MEDS ORDERED: METOPROLOL 5 MG/5 ML VIAL IVP STA (18:51)
[2021-10-07 19:08] LABS: MAGNESIUM 2.1 mg/dL (1.7-2.8); PHOSPHORUS 3.4 mg/dL (2.5-4.6)
[2021-10-07] MEDS ORDERED: ATORVASTATIN 40 MG TABLET PO STA (19:08)
[2021-10-07] MEDS: TAMSULOSIN 0.4 MG CAPSULE PO SCH (22:11)
[2021-10-07] MEDS: ACYCLOVIR 200 MG CAPSULE PO SCH (22:14)
[2021-10-08] MEDS: TAMSULOSIN 0.4 MG CAPSULE PO SCH ×2 (08:46→21:02)
[2021-10-08] MEDS: LENALIDOMIDE 15 MG PO SCH (08:51)
[2021-10-08] MEDS: CELECOXIB 100 MG CAPSULE PO SCH (10:45)
[2021-10-08] MEDS: NIFEdipine 10 MG CAPSULE PO SCH (10:45)
[2021-10-08] MEDS: ACYCLOVIR 200 MG CAPSULE PO SCH ×2 (10:45→20:50)
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
--- NOTE | 2021-10-08 12:11 | ED Physician Documentation ---
ED Addendum - Addendum Addendum: I have met and spoke with the patient this morning who said he is been comfortable. He did sleep. He has not had any chest pain or dyspnea. We are still waiting for open bed availability at outlying facilities. The feeder worker power unit operator did call all the local hospitals again as well as the transfer coordinating program. Still no beds available at this time. We will see how they go through the afternoon with discharges at other places. The patient was encouraged to let us know if he had any chest pain or other problems. 10/08/21 12:10
[2021-10-08] MEDS: HEPARIN 25000UNITS/500ML (D5W) 25,000 UNIT/500 ML BAG IV SCH (12:37)
[2021-10-08] MEDS ORDERED: METOPROLOL 5 MG/5 ML VIAL IVP STA (12:42)
[2021-10-08] MEDS: ATORVASTATIN 40 MG TABLET PO SCH (12:59)
[2021-10-08] MEDS: LOSARTAN 50 MG TABLET PO SCH (20:45)
[2021-10-09] MEDS: HEPARIN 25000UNITS/500ML (D5W) 25,000 UNIT/500 ML BAG IV SCH ×2 (05:27→09:52)
[2021-10-09] MEDS: CELECOXIB 100 MG CAPSULE PO SCH (09:24)
[2021-10-09] MEDS: ENOXAPARIN 100 MG/ML SYRINGE SUBQ SCH ×2 (09:24→22:02)
[2021-10-09] MEDS: ACYCLOVIR 200 MG CAPSULE PO SCH ×2 (09:24→22:06)
[2021-10-09] MEDS: NIFEdipine 10 MG CAPSULE PO SCH (09:25)
[2021-10-09] MEDS: ATORVASTATIN 40 MG TABLET PO SCH (09:25)
[2021-10-09] MEDS: LENALIDOMIDE 15 MG PO SCH (09:25)
[2021-10-09] MEDS: LOSARTAN 50 MG TABLET PO SCH (09:51)
[2021-10-09] MEDS: TAMSULOSIN 0.4 MG CAPSULE PO SCH (09:51)
--- NOTE | 2021-10-09 12:27 | ED Physician Documentation ---
ED Addendum - Addendum Addendum: 10/09/21 12:27 No acute over night events. Patient continues to board in the ER pending placement or transfer to [facility] for NSTEMI evaluation. He has been transition from heparin infusion to twice daily Lovenox. He is remained hemodynamically stable.
[2021-10-09] MEDS ORDERED: LOSARTAN 50 MG TABLET PO SCH (21:00)
[2021-10-09] MEDS ORDERED: TAMSULOSIN 0.4 MG CAPSULE PO SCH (21:00)
[2021-10-09] MEDS ORDERED: HYDROcod/ACETAM 5/325 MG TABLET PO STA (22:02)
[2021-10-10] MEDS: HEPARIN 25000UNITS/500ML (D5W) 25,000 UNIT/500 ML BAG IV SCH ×2 (02:01→05:52)
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
[2021-10-10] MEDS: ATORVASTATIN 40 MG TABLET PO SCH (11:33)
[2021-10-10] MEDS: ACYCLOVIR 200 MG CAPSULE PO SCH (11:33)
[2021-10-10] MEDS: NIFEdipine 10 MG CAPSULE PO SCH (11:33)
[2021-10-10] MEDS: LENALIDOMIDE 15 MG PO SCH (11:33)
[2021-10-10] MEDS: CELECOXIB 100 MG CAPSULE PO SCH (11:33)
[2021-10-10] MEDS: ENOXAPARIN 100 MG/ML SYRINGE SUBQ SCH (11:33)
[2021-10-10 11:49] VITALS: BP 141/88
== END 2021-10-10 12:21 | disposition home or self-care (01) ==
LOC: EDUNIT# → ED 14:09
DX: I21.4 Non-ST elevation (NSTEMI) myocardial infarction (principal); C90.00 Multiple myeloma not having achieved remission; I10 Essential (primary) hypertension; D64.9 Anemia, unspecified; V49.3XXA Car occupant (driver) (passenger) injured in unspecified nontraffic accident, initial encounter; I49.3 Ventricular premature depolarization
CPT/HCPCS: 36415; 70450; 71045; 71250; 72125; 74176; 80053; 81003; 83690; 83735; 84100; 84484; 85025; 85610; 85730; 87635; 93005; 96365; 96366; 96372; 96375; 96376; 99284; 99285; A9270; J1650; 81001; 87086

== ENCOUNTER 2021-11-04 23:39 | Emergency (ER) | payer MEDICARE ==
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
--- OUTSIDE RECORDS SUMMARY | 2021-11-05 00:05 | EXTERNAL MEDICAL SUMMARY RPT | Continuity of Care Document ---
:1945 Author Organization [place] Address [address] [place] [address] Phone Allergies No information. Encounters No information. Functional Status No information. Immunizations No information. Medications date description facility [id number] celecoxib 100 MG Oral Capsule [facility] Problems No information. Procedures date description facility [id number] Diagnosis [facility] [id number] Finding [facility] [id number] [facility] [id number]+0000 [facility] [id number]+0000 [facility] Results/Labs test date author facility [...] wn) date) unknown) (unknown) (no (unknown) (unknown) [place], [place] (units ( unknown) date) [address] unknown) (unknown) (no (unknown) (unknown) Draft (units (unkno wn) date) unknown) (unknown) (no (unknown) (unknown) Pain Visit (units (unk nown) date) unknown) (unknown) (no (unknown) (unknown) [facility] ([facility] date[facility] unknown) (unknown) (no (unknown) (unknown) (no value) (units (unk nown) date) unknown) (unknown) (no (unknown) (unknown) [id number] (units (unkn own) date) unknown) (unknown) (no [...] (unknown) (unknown) : 1945 (units (unknown) date) Acct:[id number] unknown) (unknown) (no (unknown) (unknown) Dept at [...] (unknown) (unknown) Patient: (units (unkno wn) date) Jacquie Delvalle unknown) MR#: M (unknown) (no (unknown) [...] unknown) effort is made to edit content, angular js developer errors (unknown) (no (unknown) (unknown) tamsulosin 0.4 [...] (unknown) SHARRON Young (units ( unknown) date) [id number] unknown) (unknown) (no (unknown) (unknown) Draft (units (unkno wn) date) unknown) (unknown) (no (unknown) (unknown) Pain Visit (units (unk nown) date) unknown) (unknown) (no (unknown) (unknown) [facility] (units (unknown) date) [facility] unknown) (unknown) (no (unknown) (unknown) (no value) (units (unk nown) date) unknown) (unknown) (no (unknown) (unknown) [id number] (units (unkn own) date) unknown) (unknown) (no [...] (unknown) (unknown) : 1945 (units (unknown) date) Acct:[id number] unknown) (unknown) (no (unknown) (unknown) Dept at [...] (unknown) (unknown) Patient: (units (unkno wn) date) Jacquie Delvalle unknown) MR#: M (unknown) (no (unknown) [...] unknown) effort is made to edit content, angular js developer errors (unknown) (no (unknown) (unknown) tamsulosin 0.4 [...] unknown) (unknown) (no (unknown) (unknown) SHARRON Young [id number] (unit s (unknown) date) unknown) (unknown) (no [...] date) stenosis: unknown) (unknown) (no (unknown) (unknown) [id number] (units (unkn own) date) unknown) (unknown) (no [...] (unknown) (unknown) : 1945 (units (unknown) date) Acct:[id number] unknown) (unknown) (no (unknown) (unknown) DTR LE: [...] (units (unknown) date) trips to both unknown) [place] and [place] were successful. He reports (unknown) (no (unknown) [...] (unknown) (unknown) [place](R/L): (units (unknown) date) unknown) (unknown) (no (unknown) (unknown) Loc: [...] (unknown) (unknown) Patient: (units (unkno wn) date) Jacquie Delvalle unknown) MR#: M (unknown) (no (unknown) [...] ( unknown) date) rhizotomy performed unknown) at [facility] in 2017. (unknown) (no (unknown) [...] effort is made unknown) to edit content, angular js developer errors m (unknown) (no (unknown) (unknown) stated [...] unknown) - Ankylosing hyperostosis [[place]], Result panel 4 (unknown) (no (unknown) (unknown) (no value) (units (unk nown) date) unknown) (unknown) (no (unknown) (unknown) (no value) (units (unk nown) date) unknown) (unknown) (no (unknown) (unknown) [place], [place] (units ( unknown) date) [id number] unknown) (unknown) (no (unknown) (unknown) Draft (units (unkno wn) date) unknown) (unknown) (no (unknown) (unknown) Nurse Office (units (u nknown) date) Visit unknown) (unknown) (no (unknown) (unknown) [facility] (units (unknown) date) [facility] Management unknown) (unknown) (no (unknown) (unknown) (no value) (units (unk nown) date) unknown) (unknown) (no (unknown) (unknown) COVID-19 (units (u nknown) date) unknown) (unknown) (no (unknown) (unknown) [id number] (units (unkn own) date) unknown) (unknown) (no (unknown) (unknown) 10/04/21 (units (unkno wn) date) unknown) (unknown) (no (unknown) (unknown) Age/Sex: 76 / M (units (unknown) date) Date of unknown) Service: (unknown) (no (unknown) (unknown) Allergies (units (unkn own) date) unknown) (unknown) (no (unknown) (unknown) Attending Dr: (units ( unknown) date) Van Coon unknown) D.OAdonay (unknown) (no (unknown) (unknown) : 1945 (units (unknown) date) Acct:[id number] unknown) (unknown) (no (unknown) (unknown) Dept at [...] (unknown) (unknown) Patient: (units (unkno wn) date) Jacquie Delvalle unknown) MR#: M (unknown) (no (unknown) [...] unknown) effort is made to edit content, angular js developer errors Result panel 5 (unknown) (no (unknown) (unknown) (no value) (units (unk nown) date) unknown) (unknown) (no (unknown) (unknown) (no value) (units (unk nown) date) unknown) (unknown) (no (unknown) (unknown) 10/04/21 1116 (units ( unknown) date) unknown) (unknown) (no (unknown) (unknown) [place] (units ( unknown) date) [address] unknown) (unknown) (no (unknown) (unknown) Nurse Office (units (u nknown) date) Visit unknown) (unknown) (no (unknown) (unknown) Signed (units (unkno wn) date) unknown) (unknown) (no (unknown) (unknown) [facility] (units (unknown) date) [facility] Management unknown) (unknown) (no (unknown) (unknown) (no value) (units (unk nown) date) unknown) (unknown) (no (unknown) (unknown) COVID-19 (units (u nknown) date) unknown) (unknown) (no (unknown) (unknown) [id number] (units (unkn own) date) unknown) (unknown) (no (unknown) (unknown) 10/04/21 (units (unkno wn) date) unknown) (unknown) (no (unknown) (unknown) Age/Sex: 76 / M (units (unknown) date) Date of unknown) Service: (unknown) (no (unknown) (unknown) Allergies (units (unkn own) date) unknown) (unknown) (no (unknown) (unknown) Attending Dr: (units ( unknown) date) Van Coon unknown) D.OAdonay (unknown) (no (unknown) (unknown) : 1945 (units (unknown) date) Acct:[id number] unknown) (unknown) (no (unknown) (unknown) Dept at (units (unkno wn) date) . unknown) (unknown) (no (unknown) (unknown) Documented By: (units (unknown) date) Van Coon unknown) D.OAdonay 10/04/21 1019 (unknown) (no (unknown) (unknown) Evaluation/Scree [...] (unknown) (unknown) Patient: (units (unkno wn) date) Jacquie Delvalle Alonso unknown) MR#: M (unknown) (no [...] unknown) effort is made to edit content, angular js developer errors m Result panel 6 (unknown) (no date) (unknown) (unknown) Negative (units (unkn own) unknown) Result panel 7 (unknown) (no (unknown) (unknown) (no value) (units (unk nown) date) unknown) (unknown) (no (unknown) (unknown) [address] [place] [address] (units (unknown) date) unknown) (unknown) (no (unknown) (unknown) [place], [place] (units ( unknown) date) [address] unknown) (unknown) (no (unknown) (unknown) [facility] (units (unknown) date) unknown) (unknown) (no (unknown) (unknown) Signed (units (unkno wn) date) unknown) (unknown) (no (unknown) (unknown) XRay Report (units (un known) date) unknown) (unknown) (no (unknown) (unknown) (no value) (units (unk nown) date) unknown) (unknown) (no (unknown) (unknown) 10/05/21 (units (unkno wn) date) unknown) (unknown) (no (unknown) (unknown) Approved by: (units (u nknown) date) Tomi Johnson unknownBrody Gonzalez on 10/05/2021 at 14:49 (unknown) (no (unknown) (unknown) COMPARISON: (units (un known) date) [facility], unknown) XA, PAIN L INTERLAMINAR/CAUDA L INJ, 05/11/2021, (unknown) (no (unknown) (unknown) Dictated by: (units (u nknown) date) Tomi Johnson, unknown) Lisa on 10/05/2021 at 14:48 (unknown) (no [...] (unknown) (unknown) Accession Number: (units (unknown) date) [id number] unknown) (unknown) (no (unknown) (unknown) Age/Sex: 76 / M (units (unknown) date) Date of Service: unknown) (unknown) (no (unknown) (unknown) : 1945 (units (unknown) date) Acct:[id number] unknown) (unknown) (no (unknown) (unknown) Loc: RAD (units (unkno wn) date) unknown) (unknown) (no (unknown) (unknown) [id number] (units (unk nown) date) unknown) (unknown) (no (unknown) (unknown) Ordering (units (unkno wn) date) Provider: unknown) Van Coon D.O. (unknown) (no (unknown) (unknown) PROCEDURE: PAIN (units (unknown) date) L unknown) INTERLAMINAR/CAUDA L INJ (unknown) (no (unknown) (unknown) Patient: (units (unkno wn) date) Jacquie Delvalle unknown) MR#: (unknown) (no (unknown) (unknown) Procedure: PAIN (units (unknown) date) interlaminar/cauda unknown) l inj (unknown) (no (unknown) (unknown) at the (units (unkno wn) date) unknown) (unknown) (no (unknown) (unknown) was (units (unkno wn) date) unknown) Result panel 8 (unknown) (no (unknown) (unknown) (no value) (units (unk nown) date) unknown) (unknown) (no (unknown) (unknown) Date of Service: (units (unknown) date) 10/05/21 unknown) (unknown) (no (unknown) (unknown) 10/05/21 1441 (units ( unknown) date) unknown) (unknown) (no (unknown) (unknown) [facility] (units (unknown) date) [address] [place] [address] unknown) [place] [address] (unknown) (no (unknown) (unknown) Procedure Note (units (unknown) date) unknown) (unknown) (no (unknown) (unknown) (no value) (units (unk nown) date) unknown) (unknown) (no (unknown) (unknown) [id number] (units (unkn own) date) unknown) (unknown) (no [...] (unknown) (unknown) : 1945 (units (unknown) date) Acct:[id number] unknown) (unknown) (no (unknown) (unknown) Date of [...] (unknown) (unknown) Patient: (units (unkno wn) date) Jacquie Delvalle unknown) MR#: M (unknown) (no (unknown) [...] the lumbar spine, (unknown) (no (unknown) (unknown) Jacquie is referred (units (unknown) date) by Dr. [...] date description facility (no date) Ex-smoker (finding) [facility] Vital Signs date measurement value units +0000 BMI BMI 28.8 kg/m2 +0000 BP_diastolic BP_diastolic 74 mm[H g] +0000 BP_systolic BP_systolic 124 mm[Hg] +0000 heart_rate heart_rate 80 /min [id number]+0000 height_metric height_metric 187.96 cm [id number]+0000 height_standard height_standard 74 in +0000 temperature_metric temperature_metric 36.89 C +0000 temperature_standard temperature_standard 9 8.4 F +0000 weight_metric weight_metric 46.29 kg +0000 weight_standard weight_standard 102.06 lb [id number]+0000 BP_diastolic BP_diastolic 73 mm[H g] [id number]+0000 BP_systolic BP_systolic 128 mm[Hg] 33966506971276+0000 heart_rate heart_rate 88 /min [id number]+0000 respiration_rate respiration_rate 14 /min +0000 temperature_metric temperature_metric 37.06 C [id number]+0000 temperature_standard temperature_standard 9 8.7 F
[2021-11-05 00:13] LABS: INR 1.5 (0.8-1.2); PT - PROTHROMBIN TIME 16.6 secs (9.9-12.6)
[2021-11-05 00:20] LABS: PARTIAL THROMBOPLASTIN TIME 27.4 secs (24.9-33.3)
[2021-11-05 00:23] LABS: ALBUMIN 3.7 g/dL (3.2-5.5); ALBUMIN/GLOBULIN RATIO 1.3 (1.0-2.2); BILIRUBIN,TOTAL 1.5 mg/dL (0.2-1.0); CALCIUM 8.2 mg/dL (8.5-10.3); CREATININE 1.9 mg/dL (0.6-1.2); POTASSIUM 4.1 mmol/L (3.5-5.0); TOTAL PROTEIN 6.5 g/dL (6.7-8.2)
[2021-11-05 00:24] LABS: BASOPHILS # (AUTO) 0.1 10^3/uL (0.0-0.1); BASOPHILS % (AUTO) 1.6 %; EOSINOPHILS # (AUTO) 0.1 10^3/uL (0.0-0.7); EOSINOPHILS % (AUTO) 3.7 %; HCT - HEMATOCRIT 27.3 % (42.0-52.0); HGB - HEMOGLOBIN 8.9 g/dL (14.0-18.0); LYMPHOCYTES # (AUTO) 0.4 10^3/uL (1.5-3.5); LYMPHOCYTES % (AUTO) 10.6 %; MEAN CORPUSCULAR HEMOGLOBIN 33.7 pg (27.0-31.0); MEAN CORPUSCULAR HGB CONC 32.6 g/dL (32.0-36.0); MEAN CORPUSCULAR VOLUME 103.4 fL (80.0-94.0); MEAN PLATELET VOLUME 12.3 fL (7.4-11.4); MONOCYTES # (AUTO) 0.4 10^3/uL (0.0-1.0); MONOCYTES % (AUTO) 9.3 %; NEUTROPHILS # (AUTO) 2.8 10^3/uL (1.5-6.6); NEUTROPHILS % (AUTO) 73.2 %; PLT - PLATELET COUNT 90 10^3/uL (130-450); RED BLOOD COUNT 2.64 10^6/uL (4.70-6.10); RED CELL DISTRIBUTION WIDTH 16.4 % (12.0-15.0); WHITE BLOOD COUNT 3.8 x10^3/uL (4.8-10.8)
--- NOTE | 2021-11-05 00:57 | XRAY Report ---
PROCEDURE: Chest [address] INDICATIONS: chest pain TECHNIQUE: 2 views of the chest. COMPARISON: 10/07/2021. FINDINGS: Surgical changes and devices: None. Lungs and pleura: There is pulmonary vascular prominence suggestive of pulmonary edema. Chronic inte rstitial prominence also redemonstrated. No pleural effusions or pneumothorax. Mediastinum: Mediastinal contours are unchanged. Heart size is enlarged. Bones and chest wall: There are diffuse lytic and sclerotic lesions redemonstrated. Soft tissues appe ar unremarkable. IMPRESSION: 1. Pulmonary vascular prominence suggestive of pulmonary edema. 2. Diffuse lytic and sclerotic lesions within the visualized osseous structures consistent with histo ry of treated multiple myeloma. Reviewed by: Rome Stover MD on 11/05/2021 1:01 AM PDT Approved by: Rome Stover MD on 11/05/2021 1:01 AM PDT Station ID: [id number]
[2021-11-05 01:06] LABS: B. PARAPERTUSSIS- RESP PCR PAN NOT DETECTED; B. PERTUSSIS- RESP PCR PANEL NOT DETECTED; C. PNEUMONIAE- RESP PCR PANEL NOT DETECTED; CORONAVIRUS 229E-RESP PCR NOT DETECTED; CORONAVIRUS HKU1-RESP PCR NOT DETECTED; CORONAVIRUS NL63-RESP PCR NOT DETECTED; CORONAVIRUS OC43-RESP PCR NOT DETECTED; HUMAN METAPNEUMOVIRUS NOT DETECTED; INFLUENZA A- RESP PCR PANEL NOT DETECTED; INFLUENZA B - RESP PCR PANEL NOT DETECTED; M. PNEUMONIAE- RESP PCR PANEL NOT DETECTED; PARAINFLUENZA VIRUS 1 NOT DETECTED; PARAINFLUENZA VIRUS 2 NOT DETECTED; PARAINFLUENZA VIRUS 3 NOT DETECTED; PARAINFLUENZA VIRUS 4 NOT DETECTED; RHINOVIRUS/ENTEROVIRUS NOT DETECTED; RSV- RESP PCR PANEL NOT DETECTED; SARS-CoV-2 -RESP PCR PANEL NOT DETECTED
[2021-11-05 03:33] VITALS: BP 113/69
== END 2021-11-05 03:33 | disposition home or self-care (01) ==
LOC: ED 23:39
DX: R07.9 Chest pain, unspecified (principal); Z20.822 Contact with and (suspected) exposure to COVID-19
CPT/HCPCS: 36415; 80053; 83690; 83880; 84484; 85025; 85610; 85730; 87633; 93005; 99284

== ENCOUNTER 2023-07-31 00:17 | Emergency (ER) | payer MEDICARE, OTHER ==
[2023-07-31 00:44] LABS: BASOPHILS # (AUTO) 0.1 10^3/uL (0.0-0.1); BASOPHILS % (AUTO) 2.2 %; EOSINOPHILS # (AUTO) 0.3 10^3/uL (0.0-0.7); EOSINOPHILS % (AUTO) 6.8 %; HCT - HEMATOCRIT 35.3 % (42.0-52.0); HGB - HEMOGLOBIN 11.3 g/dL (14.0-18.0); LYMPHOCYTES # (AUTO) 1.4 10^3/uL (1.5-3.5); LYMPHOCYTES % (AUTO) 32.8 %; MEAN CORPUSCULAR HEMOGLOBIN 32.6 pg (27.0-31.0); MEAN CORPUSCULAR VOLUME 101.7 fL (80.0-94.0); MEAN PLATELET VOLUME 10.3 fL (7.4-11.4); MONOCYTES # (AUTO) 0.4 10^3/uL (0.0-1.0); MONOCYTES % (AUTO) 10.5 %; NEUTROPHILS # (AUTO) 1.9 10^3/uL (1.5-6.6); NEUTROPHILS % (AUTO) 46.7 %; PLT - PLATELET COUNT 138 10^3/uL (130-450); RED BLOOD COUNT 3.47 10^6/uL (4.70-6.10); RED CELL DISTRIBUTION WIDTH 14.7 % (12.0-15.0); WHITE BLOOD COUNT 4.1 x10^3/uL (4.8-10.8)
--- NOTE | 2023-07-31 00:56 | XRAY Report ---
PROCEDURE: Chest 1V INDICATIONS: Chest pain TECHNIQUE: One view of the chest was acquired. COMPARISON: 11/05/2021 FINDINGS: Surgical changes and devices: Left chest wall pacemaker. Lungs and pleura: No pleural effusions or pneumothorax. Lungs are clear. Mediastinum: Mediastinal contours appear normal. Heart size is normal. Bones and chest wall: Abnormal morphology of the ribs with diffuse osseous lesions redemonstrated. Overlying soft tissues appear unremarkable. IMPRESSION: 1.No acute cardiopulmonary process. 2.Abnormal appearance of the osseous structures, likely secondary to history of multiple myeloma. Reviewed by: Luis Alberto Cline MD on 07/31/2023 12:54 AM PDT Approved by: Luis Alberto Cline MD on 07/31/2023 12:54 AM PDT Station ID: [id number]
[2023-07-31 01:03] LABS: ALBUMIN/GLOBULIN RATIO 1.5 (1.0-2.2); CALCIUM 9.9 mg/dL (8.5-10.3); CREATININE 2.9 mg/dL (0.6-1.3); POTASSIUM 3.9 mmol/L (3.5-4.5); TOTAL PROTEIN 6.7 g/dL (6.4-8.9)
[2023-07-31 01:14] LABS: TROPONIN I HIGH SENSITIVITY 45.4 ng/L (2.3-19.7)
--- NOTE | 2023-07-31 03:06 | ED Physician Documentation ---
PD HPI CHEST PAIN - Stated complaint Stated Complaint: CHEST PX/SOA - Chief complaint Chief Complaint: Cardiac - History obtained from History obtained from: Patient, Family - Additional information Additional information: The patient comes to the emergency department chief complaint of palpitations, then chest pain. He states he was just sitting when he began to notice that he felt as though he could feel his heartbeat and it seemed little irregular. Patient states he then developed a burning chest pain that spread across both sides of his chest. He states that normally he will get this sort of feeling when he is exerting himself so it caught him by surprise that it happened while he was at rest. Patient states that it lasted for some time that is not sure exactly how long but thinks may be about 30 minutes or so and then began to subside. Patient states that he still aware of some sort of sensation in his chest and still feels as though his heart is pounding. Patient has a history of aortic stenosis and has had an CA previously. The patient is scheduled to see a specialist at [place] in August to talk about having his aortic stenosis surgically dealt with. PD PAST MEDICAL HISTORY - Past Medical History Past Medical History: Yes Cardiovascular: Hypertension, High cholesterol, Coronary artery disease, Angina, CA, Other Endocrine/Autoimmune: None GI: None : Benign prostate hypertrophy, Renal insuffiency Psych: None Musculoskeletal: Chronic back pain, Other Derm: None Other Past Medical History: Mutliple Myeloma; Aortic Stenosis - Past Surgical History Past Surgical History: Yes General: Cholecystectomy, Appendectomy Ortho: Spine surgery Cardiovascular: Pacemaker - Present Medications Home Medications: Ambulatory Orders Medication Instructions Recorded Confirmed Acyclovir [Zovirax] 400 mg PO BID 07/19/20 07/31/23 Losartan Potassium 12.5 mg PO DAILY 07/19/20 07/31/23 Tamsulosin [Flomax] 0.4 mg PO DAILY 07/19/20 07/31/23 Nitroglycerin [Nitrostat] 0.4 mg SL Q5MIN PRN #25 tablet 10/10/21 07/31/23 Acetaminophen [Tylenol] 500 - 1,000 mg PO Q6HR PRN 07/31/23 07/31/23 Aspirin [Aspirin EC] 81 mg PO DAILY 07/31/23 07/31/23 Calcium Carbonate [Calcium] 1 tab PO BID 07/31/23 07/31/23 Cholecalciferol [Vitamin D3] 1 tab PO DAILY 07/31/23 07/31/23 Empagliflozin [Jardiance] 25 mg PO DAILY 07/31/23 07/31/23 Lenalidomide 5 mg PO DAILY 07/31/23 07/31/23 Metoprolol Succinate [Toprol Xl] 12.5 mg PO DAILY 07/31/23 07/31/23 Torsemide 40 mg PO DAILY 07/31/23 07/31/23 - Allergies Allergies/Adverse Reactions: Allergies Allergy/AdvReac Type Severity Reaction Status Date / Time No Known Drug Allergies Allergy Verified 07/31/23 00:32 - Social History Does the pt smoke?: No Smoking Status: Never smoker Does the pt drink ETOH?: Yes Does the pt have substance abuse?: No - Immunizations Immunizations are current?: Yes Immunizations: TDAP >10years/unknown - POLST Patient has POLST: No PD ED PE NORMAL - Vitals Vital signs reviewed: Yes - General General: Alert and oriented X 3, No acute distress, Well developed/nourished - HEENT HEENT: Atraumatic, PERRL, EOMI, Moist mucous membranes - Neck Neck: Supple, no meningeal sign - Cardiac Cardiac: RRR, Other (4/6 Systolic murmur) - Respiratory Respiratory: No respiratory distress, Clear bilaterally - Abdomen Abdomen: Soft, Non tender, Non distended - Derm Derm: Normal color, Warm and dry, No rash - Extremities Extremities: No deformity, No edema, No calf tenderness / cord - Neuro Neuro: Alert and oriented X 3 - Psych Psych: Normal mood, Normal affect Results - Vitals Vitals: Oxygen O2 Source Room air - EKG (time done) 0058 EKG releavant findings:: EKG personally interpreted by author of this note. Relevant findings are: Rate: Rate (enter#) (74) Rhythm: NSR [place]: Normal Intervals: Normal DE, LBBB QRS: Normal Ischemia: Normal ST segments Compare to prior EKG: Old EKG unavailable Computer interpretation: Agree with computer - Labs Labs: Laboratory Tests 07/31/23 07/31/23 07/31/23 00:30 00:30 00:47 WBC 4.1 L RBC 3.47 L Hgb 11.3 L Hct 35.3 L MCV 101.7 H MCH 32.6 H MCHC 32.0 RDW 14.7 Plt Count 138 MPV 10.3 Neut # (Auto) 1.9 Lymph # (Auto) 1.4 L [place] # (Auto) 0.4 Eos # (Auto) 0.3 Baso # (Auto) 0.1 Absolute Nucleated RBC 0.00 Nucleated RBC % 0.0 PT 11.0 INR 1.0 Sodium 137 Potassium 3.9 Chloride 103 Carbon Dioxide 25 Anion Gap 9.0 BUN 57 H Creatinine 2.9 H Estimated GFR (MDRD) 21 L Glucose 87 Calcium 9.9 Total Bilirubin 1.0 AST 14 ALT 16 Alkaline Phosphatase 68 Troponin I High Sens 45.4 H* Total Protein 6.7 Albumin 4.0 Globulin 2.7 Albumin/Globulin Ratio 1.5 Lipase 46 07/31/23 02:04 WBC RBC Hgb Hct MCV MCH MCHC RDW Plt Count MPV Neut # (Auto) Lymph # (Auto) [place] # (Auto) Eos # (Auto) Baso # (Auto) Absolute Nucleated RBC Nucleated RBC % PT INR Sodium Potassium Chloride Carbon Dioxide Anion Gap BUN Creatinine Estimated GFR (MDRD) Glucose Calcium Total Bilirubin AST ALT Alkaline Phosphatase Troponin I High Sens 39.6 H* Total Protein Albumin Globulin Albumin/Globulin Ratio Lipase PD Medical Decision Making - ED course Complexity details: reviewed results, re-evaluated patient, considered differential, d/w patient, d/w family ED course: The patient was very well-appearing and did not have any edema in his lower extremities. His blood pressure and oxygen saturation were very good and his lungs were clear. Given his symptoms and his history, he was worked up with labs including serial troponins, as well as EKG and chest x-ray. EKG, as above, showed some possible left bundle branch block but otherwise unremarkable. His chest x-ray showed a normal-sized cardiac silhouette with no pulmonary edema. The patient's troponins were moderately elevated but did not show a rise from the first to the second level. The moderate elevation was not surprising, given the patient's history of renal failure. I discussed with the patient and his son that at this point in time I do not find any evidence of an acute decompensation of his aortic stenosis and there is no evidence of an CA. I encouraged the patient to call his seo strategist office this morning and let them know about his symptoms overnight. We have discussed the usual indications for return. Departure - Departure Disposition: 01 Home, Self Care Clinical Impression: Palpitations with regular cardiac rhythm Chest pain Qualifiers: Chest pain type: unspecified Qualified Code(s): R07.9 - Chest pain, unspecified Dyspnea Qualifiers: Dyspnea type: unspecified Qualified Code(s): R06.00 - Dyspnea, unspecified Condition: Stable Instructions: ED Chest Pain Atypical Unkn Cause, ED Dyspnea Shortness of Breath Comments: Your test today actually look quite good. Your cardiac enzymes are moderately elevated, though with your kidney failure, this is to be expected. You did not have any rise in the levels between the first and second measurements and actually, your second measurement was a little lower than the first 1. Your EKG and monitor reading showed your pacemaker to be working and EKG did not show any other evidence of a "heart attack" or anything else of concern. Your kidney functions showed a creatinine of 2.9 and a GFR of 21. Your chest x-ray showed a normal-sized heart silhouette with no fluid backing up into your lungs. This is very good news in terms of your aortic stenosis and cardiac function. Your vital signs otherwise all looked great. At this point in time, it is not entirely clear what caused the discomfort you had a earlier. Is very important that you follow-up with your seo strategist and that you call to let them know you are seen here in the ED. If you notice a significant worsening of your symptoms or new onset of other concerning symptoms, please seek medical reevaluation immediately. Forms: PCP List Discharge Date/Time: 07/31/23 03:17
[2023-07-31 03:11] VITALS: BP 124/69; O2SAT 97
== END 2023-07-31 03:17 | disposition home or self-care (01) ==
LOC: ED 00:17
DX: R00.2 Palpitations (principal); R07.9 Chest pain, unspecified; R06.00 Dyspnea, unspecified; I10 Essential (primary) hypertension; E78.00 Pure hypercholesterolemia, unspecified; I25.10 Atherosclerotic heart disease of native coronary artery without angina pectoris; I25.2 Old myocardial infarction; Z95.0 Presence of cardiac pacemaker; Z79.899 Other long term (current) drug therapy; Z79.82 Long term (current) use of aspirin; Z79.84 Long term (current) use of oral hypoglycemic drugs
CPT/HCPCS: 36415; 80053; 83690; 84484; 85025; 85610; 93005; 99284

== ENCOUNTER 2023-07-31 13:38 | Outpatient (CLI) | payer OTHER | END 2023-07-31 23:59 | disposition short-term general hospital (02) | LOC: EMS 13:38 | DX: R55 Syncope and collapse (principal); R53.1 Weakness; Z95.0 Presence of cardiac pacemaker | CPT/HCPCS: A0425; A0427 ==